=== PATIENT | female | born 1980 | race Caucasian/White ===

== ENCOUNTER 2018-08-19 16:01 | Emergency (ER) | payer MEDICAID, SELFPAY ==
[2018-08-19 16:02] VITALS: BP 109/72; PULSE 97; RESP 16; TEMP 35.9; O2SAT 98; BMI 32.1
--- NOTE | 2018-08-19 16:17 | ED.DCSUM_ITS ---
- ER Visit Summary Date of Service: 08/19/18 Chief Complaint: Dental pain right lower molar History of Present Illness: The patient is a 38 F who had root canal done approximately 2 3 months ago presents with pain right lower molar. She denies fever, chills or night sweats. She denies history rheumatic fever, murmur, SBE, IV drug use being immune suppressed. She denies any antibiotic allergies. She states she is 9 weeks . She denies inability to open or close her mouth. She denies facial swelling. She denies trouble with breathing, swallowing or speaking. Physical Examination: Vital signs noted. There is obvious dental decay with exposure of the pulp buccal side right first lower molar. There is inflammation of the gum as well. There is no fluctuance. There is shotty submandibular nodes noted. There is no superior anterior cervical nodes noted. Trach is midline. There is no evidence of Rah's angina. There is no trismus. There is no evidence of facial cellulitis. Heart is regular without murmur, gallop or rub. S1 and S2 are normal. Lungs are clear to auscultation with good movement of air bilaterally. Test Results: None Emergency Department Course and Treatment: Patient was treated with Pen-Vee K and given prescription for Pen-Vee K and L[place]field Treatment Plan: Contact dentist that she saw originally and undergo dental procedure for definitive treatment Disposition: Discharge to home Impression: 1. Odontalgia 2. Dental caries with dental abscess, pulp 3. First trimester This note was generated with [employer] dictation software. It may contain incorrect words, spelling, and punctuation that were not noted in review of the chart prior to signing ED Disposition - Plan for ED Patient: Disposition: Home or Assisted Living Chief Complaint: Dental Instructions: Dental Abscess, ED Cavity Dental Prescriptions: Hydrocodone Bitart/Apap 5-325 [[place]field 5MG-325MG] 1 tablet PO Q6H PRN PRN 3 Days #10 tablet PRN Reason: Pain Penicillin V Potassium 500 mg PO 4X/DAY #40 tablet Referrals: Dari Ma MD [Primary Care Provider] - Additional Instructions: You need to contact her dentist to have definitive dental care. Your prescriptions were electronically transmitted to [facility] your designated pharmacy
[2018-08-19] MEDS: Penicillin Vk 250 MG Tablet 500 MG PO (16:30)
--- NOTE | 2018-08-19 16:34 | ED.RN ---
Pt drove self to ED, pt states she will wait to get her NORCO prescription and get home before taking. NORCO was not dispensed to patient in ED>
== END 2018-08-19 16:35 | disposition home or self-care (01) ==
PROVIDERS: Emergency Provider Emergency Medicine; Family Provider Family Medicine; PCP Family Medicine
DX: O26.891 Other specified pregnancy related conditions, first trimester (principal); K08.89 Other specified disorders of teeth and supporting structures; K02.9 Dental caries, unspecified; K04.01 Reversible pulpitis; Z3A.09 9 weeks gestation of pregnancy; Z98.818 Other dental procedure status
CPT/HCPCS: 99283

== ENCOUNTER 2018-08-22 08:42 | Emergency (ER) | payer MEDICAID, SELFPAY ==
[2018-08-22 08:43] VITALS: BP 125/74; PULSE 101; RESP 16; TEMP 36.6; O2SAT 99; BMI 32.1
--- NOTE | 2018-08-22 09:00 | ED.DCSUM_ITS ---
- ER Visit Summary Date of Service: 08/22/18 Chief Complaint: Odontalgia History of Present Illness: The patient is a 38 F who has had tooth pain for 4 days. She was seen here 3 days ago and was given antibiotics and Vaiden. She is out of the Vaiden. She continues to have pain. She does have an appointment in 2 days with her dentist. She was concerned that she may be becoming septic so she came in. She has been taking Tylenol since she is out of the Vicodin. This all started when she had a root canal but she never followed up after the initial appointment. She is 9 weeks gestation currently. Physical Examination: Vital signs reviewed. Patient afebrile. HEENT exam reveals widespread dental decay. She has tenderness at tooth #31. There is no Rah's angina. Her uvula is midline. Neck is supple without lymphadenopathy. There is no focal abscesses. Heart is regular rate and rhythm. Lungs are clear to auscultation bilaterally. Her neurologic and is normal. Test Results: None performed Emergency Department Course and Treatment: I offered the patient a dental block with lidocaine but she declined. She states that she just came in today to make sure that she was not septic. I reassured her that her vital signs do not indicate that she is septic. She looks well. She does have an appointment in 2 days. She will continue antibiotics and Tylenol at home. Treatment Plan: [] Disposition: Discharge Impression: Odontalgia This note was generated with [employer] dictation software. It may contain incorrect words, spelling, and punctuation that were not noted in review of the chart prior to signing ED Disposition - Plan for ED Patient: Chief Complaint: Dental Referrals: Dari Ma MD [Primary Care Provider] -
--- NOTE | 2018-08-22 09:00 | ED.DEP ---
ED Disposition - Plan for ED Patient: Disposition: Home or Assisted Living Chief Complaint: Dental Instructions: ED Tooth Pain Referrals: Dari Ma MD [Primary Care Provider] -
== END 2018-08-22 09:06 | disposition home or self-care (01) ==
LOC: ED 09:05
PROVIDERS: Emergency Provider Emergency Medicine; Family Provider Family Medicine; PCP Family Medicine
DX: O26.891 Other specified pregnancy related conditions, first trimester (principal); K08.89 Other specified disorders of teeth and supporting structures; K02.9 Dental caries, unspecified; Z3A.09 9 weeks gestation of pregnancy
CPT/HCPCS: 99282

== ENCOUNTER 2019-02-26 06:47 | Outpatient (CLI) | payer MEDICAID, SELFPAY ==
[2019-02-26 07:58] VITALS: BMI 37.8
[2019-02-26] MEDS: Acetaminophen 500 MG Tablet 1000 MG PO (08:21)
--- NOTE | 2019-02-26 10:31 | OB.TRI.NOTE ---
History of Present Illness Date of Service: 02/26/19 Was patient seen by the physician?: No Reason For Visit: R/O LABOR Date of Service: 02/26/19 Final TATA: 03/24/19 Final TATA Source: US <20 weeks Gestational age: 36 Weeks and 2 Days History of Present Illness: Adia is a 39 y/o presenting at 36+ weeks reporting increased pelvic pressure and regular cramping that is painful. Patient has concerns that she may be in labor. She denies dysuria, denies VB, LOF or vaginal discharge. She reports +FM at this time. Allergies No Known Allergies Allergy (Verified 02/26/19 08:00) Review of Systems Unable to obtain accurate/complete ROS d/t: ROS completed by nursing staff Physical Exam Vitals: VSS, Afebrile - see nursing note for full PE NST - FHR Rate Baby A Baseline: 145 Variability:: Moderate Accelerations:: 15 x 15 - 2 accels noted, otherwise few accels seen Decelerations:: None NST Reactive:: Yes, Appropriate for gestational age FHR Category:: Category I Uterine Activity:: Ctx 1-6 minutes, mildly palpable. Uterine irritability noted. Impression/Plan 39 y/o @ 33+ weeks, Category I FHT, Pre-term Labor - Ruled Out P: 1) Discharge patient to home 2) Tylenol 1000mg PO q 8 hours as directed for pain can be given; patient may also apply warm heating pack 3) [facility] teaching and PTL precautions reviewed 4) RTC to [facility] as scheduled for han CHRIS
== END 2019-02-26 08:55 | disposition home or self-care (01) ==
LOC: WPOUT 07:20 → WP 07:25
PROVIDERS: Family Provider Family Medicine; PCP Family Medicine; Visit Provider Obstetrics & Gynecology
DX: O60.03 Preterm labor without delivery, third trimester (principal); Z3A.33 33 weeks gestation of pregnancy; O09.523 Supervision of elderly multigravida, third trimester
CPT/HCPCS: 59025; 59050; 99218; G0378

== ENCOUNTER 2019-03-12 06:18 | Inpatient (IN) | payer MEDICAID, SELFPAY ==
[2019-03-12] VITALS (22 sets, daily range): BP systolic 103–145; BP diastolic 52–84; PULSE 104–131; RESP 14–18; TEMP 36–36.6; O2SAT 94–99; BMI 38.2
[2019-03-12 02:36] LABS: Mucous, Urine 0 SEEN /hpf (<or=2+)
[2019-03-12 02:38] LABS: Color, Urine Yellow (Yellow); Glucose, Dipstick Normal (Normal); Ketone-Dipstick Negative (Negative); Leukocyte Esterase-Dipstick 500 /ul (Negative); Nitrite-Dipstick Negative (Negative); Occult Blood-Urine 250 /ul (Negative); Protein-Dipstick Negative (Negative); Urine Bilirubin Dipstick Negative (Negative); Urine Clarity Sl. Cloudy (Clear); Urine Urobilinogen Normal (Normal)
[2019-03-12 03:28] LABS: Bacteria RARE /hpf (None Seen); Red Blood Cells-Urine 5-10 SEEN /hpf (0-5); Squamous Epithelial Cells - UA 0-5 SEEN /hpf (5-10); White Blood Cells 5-10 SEEN /hpf (0-5)
[2019-03-12] MEDS: Lactated Ringers 1,000 ML 999 ML IV (04:05)
[2019-03-12] MEDS: Nalbuphine 10 MG/ML Ampul 5 MG IV (04:20)
[2019-03-12] MEDS: Betamethasone/Betamethasone 30 MG/5 ML Vial 12 MG IM (04:21)
[2019-03-12 06:37] LABS: Absolute Lymphocyte Count 2.58 X10^3/uL (0.83-4.51); Absolute Neutrophil Count 9.5 X10^3/uL (2.0-7.7); Basophil# 0.03 X10^3/uL; Basophil% 0.2 % (0-1); Eosinophil# 0.12 X10^3/uL; Eosinophils% 0.9 % (0-5); Hematocrit 35.5 % (37-47); Hemoglobin 11.9 g/dL (12.0-15.0); Lymphocyte # 2.58 X10^3/ul (4.0); Lymphocyte % 19.2 % (19-41); Mean Corp Hgb Conc 33.5 g/dL (32-36); Mean Corpuscular Hgb 30.8 pg (27.0-32.0); Mean Platelet Vol. 10.9 fl (6.2-12.0); Monocyte# 1.19 X10^3/uL; Monocyte% 8.8 % (0-10); NRBC Flagged by Analyzer 0 % (0-5); Neutrophil # 9.46 X10^3/uL (2.7-7.7); Neutrophil % 70.3 % (47-70); Platelet Count 223 K/mm3 (150-450); RBC Distribution Width CV 16.4 % (11.6-14.6); RBC Distribution Width SD 54.2 fl (35.1-43.9); Red Blood Count 3.86 M/mm3 (4.2-5.4); White Blood Count 13.5 K/mm3 (4.4-11.0)
[2019-03-12] MEDS: Lactated Ringers 1,000 ML 150 ML IV (07:00)
[2019-03-12] MEDS: Sodium Citrate/Citric Acid 30 ML UDC PO (07:00)
--- NOTE | 2019-03-12 07:04 | PCM.HP.OB ---
- Problem List (1) labor Status: Acute (2) History of delivery affecting Status: Acute History Date of Admission: 03/12/19 Final TATA: 04/11/19 Final TATA Source: US <20 weeks Gestational age: 35 Weeks and 5 Days History of this : This is a 39 year-old, G [id number] at 35.5 weeks gestation presents complaining of contractions since 11 PM on 03/11/2019. On admission patient was found to be 1 cm however is progressed to 4 cm 80% effaced and -2 station. She denies any vaginal bleeding, leaking of fluid. Patient did receive Celestone x1 dose patient is a previous section with her last and she declines to have a vaginal delivery. Patient wants to proceed with a repeat section. She did sign a 10 on however was not 30 days ago. Due to the fact that this is an emergent due to labor I feel it is appropriate to perform this procedure at this time.. Allergies No Known Allergies Allergy (Verified 02/26/19 08:00) Home Medications: Home Medications Duloxetine Hcl [Cymbalta] 60 mg PO DAILY 09/30/16 Pnv No.95/Ferrous Fum/Folic AC [ Caplet] 1 ea PO DAILY 03/12/19 Smoking Status: Former smoker Alcohol: None Substance Use Type: Marijuana - stopped upon knowing she was Heart Tracin mod jin, + accels, no decels TOCO Analysis: q2-4 History Past Pregnancies: Past Pregnancies Delivery Date Name GA/Weeks Outcome Route Weight Gender Labor Length Anesthesia Delivery Location Provider FOB Labs: A+, HIV neg, HEPB neg, RUB imm, syphilis neg Expected Delivery Method: Scheduled Section Review of Systems HEENT: Denies: Difficulty Hearing Cardiovascular: Denies: Chest Pain Gastrointestinal: Reports: Abdominal Pain - from contractions Physical Exam General: Alert, Oriented x3 Abdomen: Soft, Non Tender, Gravid Neurological: Cranial nerves II-XII grossly intact 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 Patient is a history of a section declines Tolac. 1) admit to L&D 2) monitor FHR/toco 3) Pt counseled on Repeat c/s- declines TOLAC 4) title 19 was signed previously in the office due to labor and the emergent nature of the section I feel that it is appropriate to go ahead and proceed with a tubal ligation.
[2019-03-12] MEDS: Cefazolin 2 GM in 0.9% Normal Saline 100 ML IV (07:25)
[2019-03-12] MEDS: Oxytocin 30 units/NS 500 ml 30 UNITS/500 ML IV.SOLN 167 UNITS IV (07:40)
--- NOTE | 2019-03-12 08:13 | PCM.OPRPT ---
Problem List (1) labor Status: Acute (2) History of delivery affecting Status: Acute Delivery Classification: SHANON Final TAAT: 04/11/19 Final TATA Source: US <20 weeks Gestational age: 35 Weeks and 5 Days Indications: labor 35.5 weeks gestation. Indications for : Repeat Elective , Desires elective sterilization, - - labor Description of Procedure: Surgeon: Dr. Radha Buckner [employer] Coordinator: Laura WILSON Procedure performed: Repeat section, bilateral tubal ligation Anesthesia: Spinal Preoperative diagnosis: labor, gestation at 35.5 weeks gestation for an elective repeat section, desires sterilization- DECLINES TOLAC Postoperative Diagnosis: same- live Male infant Findings: Live male born without complication. Delayed cord clamping performed. Normal tubes and ovaries bilaterally. Lateral tubal ligation performed without difficulty. Normal tubes and ovaries bilaterally EBL:900cc Implantable devices: None Operative note: After informed consent was obtained the patient was taken to the operating room she was given spinal anesthesia. sHe was placed in the supine position. She was then prepped and draped in normal sterile fashion. Once spinal anesthesia was found to be adequate skin incision was made with a scalpel in a Pfannenstiel fashion. It was carried down to the underlying layer of the fascia. Fascia was then incised midline with scapel and extended laterally using curved deutsch. 2 straight Tomahawk's were placed in the superior aspect of the fascial edge and the rectus muscles were dissected off sharply. Attention was then turned to the inferior aspect where again the fascial edge was grasped with 2 straight Alden clamps tented up and the rectus muscle dissected off sharplly. At this time the rectus muscles were grasped in the midline using 2 Allis clamps and scalpel was used to separate the rectus muscles. Using blunt force the peritoneum was then entered. Metzenbaums were used to take down the rectus muscles inferiorly as well as the peritoneum. At this time the vesicouterine peritoneum was identified. Metzenbaum scissors were used to create a bladder flap and then taken down digitally. Uterine incision was made in a low transverse fashion with the scalpel and then entered bluntly. Gentle opposing traction was placed to extend the uterine incision. The membranes were ruptured amniotic fluid clear. 's head was then brought to the uterine incision was delivered atraumatically followed by the rest 's body. At this time delayed cord clamping was performed mouth nose were suctioned. Infant was then handed to the waiting nursery team. The placenta was then removed with gentle traction. The uterus was removed from the intra-abdominal cavity is wrapped in a moist lap. He was cleared of all clots and debris using a moist lap. Ring clamps were placed on the uterine angles. #1 Vicryl suture was used in a running locked fashion for the first layer. Tubes and ovaries were evaluated they were normal. The tubes were grasped in an avascular area with the Major 0- plain gut suture was used to create a knuckle this was doubly secured. A portion of the tube was then resected using the Metzenbaum scissors. And the ends were coagulated using the Bovie. At this time then the uterus was placed back into abdominal cavity uterine incision was evaluated and noted to be of good hemostasis. Bilateral tubes were reevaluated. The left tube had some oozing where it seemed to shear upon placement in the abdominal cavity. At this time another 0 plain gut suture was secured around the tube and great hemostasis was appreciated. Megan was placed over the tube.. The peritoneum and mucle were adherant- they were reapproximated using #2 Vicryl suture in a running fashion. The fascia was then reapproximated using #1 PDS in a running fashion. Subcutaneous layer was evaluated and Bovie was used for any small oozing that was noted per #2-0 plain gut suture was then used to reapproximate the subcutaneous layer 4-0 Vicryl on a Marcin needle was used to reapproximate the skin in a subcutaneous fashion. Dry sterile dressing was applied. Instrument lap needle count were correct ?2. Anticipated normal postoperative course for this patient. Amniotic Membrane Rupture Type: Spontaneous Amniotic Fluid Description: Clear Placenta Disposition: [facility] Drain: Bedolla to straight drain Cord Entanglement: None Cord Vessel Description: 3 Vessels Esitmated Blood Loss (ml): 900 Infant Gender: Male (1 minute): 8 (5 minute): 9 Delayed cord clamping: Yes Pre-op Antibiotic Given: Ancef 2 grams IV x1 Pt instructed on risks of surgery: Bleeding, Anesthesia Risks, Infection, Need for Future C-Sections, Permanency, Failure Rate of 1 to 2%, Injury to surrounding structure(s) including bowel and bladder, Availability of other non-permanent control options Complications: None - Admit VTE Documentation VTE Present on Admission: Yes VTE Mechan Device Prophylaxis: SCD's VTE Pharm Prophylaxis ordered?: Yes
--- NOTE | 2019-03-12 09:13 | FALS_PTH ---
PATIENT: KENY AKINS LOC: [facility] U#:[id number] AGE/SX: 39/F ROOM: WP004 RE03/12/[address]: Dr. Radha Buckner, MDDOB: 1980 BED: 1 DIS: 03/15/2019 SPEC #: [id number] RECD: 03/12/19 00:00 STATUS: JOSE DIONNA #: [id number] KEKE: 03/12/19 09:[address]: Radha Buckner DEPT: SURGICAL PATHOLOGY RECD BY: Earle Lindsay ENTERED: 03/13/19 08:10 SP TYPE: FALL TUBES OTHR DR: Dr. Dari Ma MD Tissues: Fallopian tube Procedures: Surgery Specimen Level II HEADER OPERATION: Tubal ligation PRE-OP DIAGNOSIS: Desires sterilization TISSUE SUBMITTED: Fallopian tubes, suture in left tube MICROSCOPIC DIAGNOSIS Bilateral fallopian tubes, tubal ligation: Completely transected segments of bilateral fallopian tubes, no pathologic diagnosis. ADAN:julián 03/14/19 MICROSCOPIC DESCRIPTION Slides are reviewed. GROSS DESCRIPTION Received is one container labeled with the patient's name and designated bilateral fallopian tubes, left - suture, right - no suture. The specimen consists of two tubular pieces of pink-mast soft tissue. The left tube is identified by a suture and measures 2.5 cm in length and 0.6 cm in diameter. The right tube measures 2 cm in length and 0.6 cm in diameter. The entire specimen is submitted in two cassettes as follows: 1 - right tube, 2 - left tube. Both pieces will be sectioned at the time of embedding. / ADAN:julián 03/13/19 TC:4 CPT: 14840 x2
[2019-03-12] MEDS: Ondansetron 4 MG/2 ML Vial IV (10:44)
[2019-03-12] MEDS: DULoxetine Hcl 60 MG Capsule PO (11:37)
[2019-03-12] MEDS: Senna/Docusate Sodium 1 Tablet PO (11:37)
[2019-03-12] MEDS: proMETHazine 25 MG/ML Syringe 12.5 MG IV (13:11)
[2019-03-12] MEDS: Ketorolac 30 MG/ML Syringe IV ×2 (14:27→20:07)
--- NOTE | 2019-03-12 15:32 | CPS ---
patient is nursing baby. She states she is familiar with the device. instructed her on how and when to do.
[2019-03-12] MEDS: Lactated Ringers 1,000 ML 100 ML IV (18:12)
--- NOTE | 2019-03-12 21:44 | NURSING ---
new cath secure applied, previous one broke while pt up in bathroom doing aliyah care.
[2019-03-13] VITALS (9 sets, daily range): BP systolic 117–138; BP diastolic 70–79; PULSE 84–110; RESP 16–18; TEMP 36.1–36.9; O2SAT 95–100
[2019-03-13] MEDS: 0.9% Saline Lock 10 ML Syringe IV (02:08)
[2019-03-13] MEDS: Ketorolac 30 MG/ML Syringe IV (02:08)
[2019-03-13] MEDS: Lactated Ringers 1,000 ML 100 ML IV (03:25)
[2019-03-13] MEDS: Enoxaparin 40 MG/0.4 ML Syringe SC (06:29)
[2019-03-13 06:46] LABS: Hematocrit 30.4 % (37-47); Hemoglobin 10.2 g/dL (12.0-15.0); Mean Corp Hgb Conc 33.6 g/dL (32-36); Mean Corpuscular Hgb 30.5 pg (27.0-32.0); Mean Platelet Vol. 10.1 fl (6.2-12.0); Platelet Count 210 K/mm3 (150-450); RBC Distribution Width CV 16.9 % (11.6-14.6); RBC Distribution Width SD 55.4 fl (35.1-43.9); Red Blood Count 3.34 M/mm3 (4.2-5.4); White Blood Count 16.7 K/mm3 (4.4-11.0)
--- NOTE | 2019-03-13 07:16 | PCM.PN.OB ---
Patient Problems: Active and Suspected Problems labor (Acute) History of delivery affecting (Acute) Subjective: She is seen at bedside doing well. Patient reports good pain control. Patient is not passing flatus. Denies chest pain, shortness of breath, dizziness, nausea or vomiting. Patient reports mild lochia. Bedolla is still intact. Breast-feeding going well. - Physical Exam General: Alert, Oriented x3 Abdomen: Soft, Non-Distended, - - fundus firm. incision dressing dry and intact Extremities: No Calf Tenderness Vital Signs Temp Pulse Resp BP Pulse Ox 97.2 F L 103 H 18 117/70 96 03/13/19 03:30 03/13/19 03:30 03/13/19 03:30 03/13/19 03:30 03/13/19 03:30 Oxygen Delivery Method Room Air Weight: 102.512 kg Body Mass Index (BMI) 38.2 Intake and Output for Last 24 Hours 03/11/19 03/12/19 03/13/19 23:59 23:59 23:59 Intake Total 3089 / 3089 1193 / 1193 Output Total 2800 / 2800 1900 / 1900 Balance 289 / 289 -707 / -707 Laboratory Tests Past 24 Hrs 03/12/19 03/12/19 03/13/19 04:08 07:27 06:35 WBC 16.7 H RBC 3.34 L Hgb 10.2 L Hct 30.4 L MCV 91.0 MCH 30.5 MCHC 33.6 RDW Std Deviation 55.4 H RDW Coeff of Vignesh 16.9 H Plt Count 210 MPV 10.1 Blood Type Cancelled A POSITIVE A1 Antigen Typing Cancelled Rho(D) Type Cancelled Antibody Screen Cancelled NEGATIVE Medical Necessity - Tobacco Use Smoking Status: Former smoker Assessment/Plan All Active Problems labor (Acute) History of delivery affecting (Acute) Non-reassuring electronic monitoring tracing (Acute) Non-reassuring electronic monitoring tracing (Acute) Postop day #1, doing well Routine care Pain management Ambulation DC Bedolla catheter
[2019-03-13] MEDS: oxyCODONE 5 MG Tablet PO ×4 (07:57→22:16)
[2019-03-13] MEDS: Senna/Docusate Sodium 1 Tablet PO (07:59)
[2019-03-13] MEDS: DULoxetine Hcl 60 MG Capsule PO (11:00)
[2019-03-13] MEDS: Acetaminophen 500 MG Tablet 1000 MG PO (11:45)
[2019-03-13] MEDS: Ibuprofen 600 MG Tablet PO ×2 (13:19→19:10)
--- NOTE | 2019-03-13 13:36 | CASEMGMT ---
Social Work Referral Date: 03/13/19 Date of Assessment: 03/13/19 Reason for Consult: Mother of baby (MOB) with History of depression and THC use during Informant: Nursing staff, Chart Personal Status Present during assessment: MOB, and father of baby (FOB). Hx : 8 Hx Para: 9 Gender: Male Name: Baron Ludwig Zuluaga (1min): 8 (5min): 9 Care: Adequate Alleged father: Eric Zuluaga Alleged father involved: Yes Length of Relationship with alleged father of baby: 5 years Number of Children in the home: This is now full brother to Ayla Zuluaga and half brother to Tatiana Case. Ayla is age 2 1/2 years and share paternity with this infant. Tatiana is 13 years old and does not share paternity with this infant. Custody Comments: MOB has custody of all mentioned children. Living Arrangements: MOB, FOB, Ayla, Tatiana and now this infant live in a private home together. Education: High School Diploma Employment: MOB wors for [employer] in the [place]. 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 Family Dynamics/Relationships: MOB reporting positive family dynamics and support. Supports: MOB reporting support from FOB and family. MOB identifying no support issues. Substance Abuse Hx and Current Pattern of Use Alcohol: MOB denies abuse Methamphetamine: MOB denies use Tobacco: MOB reporting history of smoking tobacco but no current use. Cocaine: MOB denies use. Marijuana: MOB reporting to have used some prior to . MOB with a positive drug screen for THC as beginning of . MOB with no further positive drug screens during . MOB was tested when admitted to unit and was negative for THC. MOB reporting no intention of continued use of THC. Prescriptions Drugs: MOB denies abuse. Heroin: MOB denies abuse Mental Health Hx and Current Status MOB reporting a history of depression and to currently manage depression with Cymbalta. MOB denies any history of counseling services. MOB denies any suicidal thoughts. MOB reporting that Cymbalta manages MOB's depression well. MOB noting no changes or concerns with mood during and thus far. MOB denies any history of depression with prior pregnancies. Items/Skills List for Infants Care Supplies: MOB stating to have all needed supplies (crib, car seat, clothing, etc.) Bonding With Infant: MOB stating to have a connection with . Observed Maternal/Paternal Child interaction: MOB holding during assessment. MOB planning to breast feed and stating that breast feeding is going well. MOB smiling often towards . Emotional Assessment: MOB presenting with a positive affect. MOB engaged in conversation with this drug abuse social worker. MOB thanking this drug abuse social worker for support. Resources JFS: n/a WIC: n/a People to People: n/a Community Action: n/a Help Me Grow: n/a - declining referral. Children Protective Services Hx: None Transportation: MOB reporting no transportation concerns. Intervention: Support provided throughout assessment. Plan: MOB, FOB, and this to return to home with other children. Maura Dinero MSW, RONALD
[2019-03-14] MEDS: Ibuprofen 600 MG Tablet PO ×4 (02:20→21:12)
[2019-03-14 02:22] VITALS: BP 114/72; PULSE 84; RESP 18; TEMP 35.9
[2019-03-14] MEDS: oxyCODONE 5 MG Tablet PO ×4 (05:30→20:11)
[2019-03-14] MEDS: Enoxaparin 40 MG/0.4 ML Syringe SC (05:30)
[2019-03-14] MEDS: Senna/Docusate Sodium 1 Tablet PO (05:30)
--- NOTE | 2019-03-14 06:56 | PCM.PN.OB ---
Patient Problems: Active and Suspected Problems labor (Acute) History of delivery affecting (Acute) Subjective: pain well controlled, average lochia. +flatus - Physical Exam General: Alert, Cooperative, No apparent distress Abdomen: Soft, Distended - mildly, softly, Tender - appropriately Extremities: Edema Skin: Incision - bandage clean, dry and intact Vital Signs Temp Pulse Resp BP Pulse Ox 96.6 F L 84 18 114/72 95 03/14/19 02:22 03/14/19 02:22 03/14/19 02:22 03/14/19 02:22 03/13/19 17:30 Oxygen Delivery Method Room Air Weight: 102.512 kg Body Mass Index (BMI) 38.2 Intake and Output for Last 24 Hours 03/12/19 03/13/19 03/14/19 23:59 23:59 23:59 Intake Total 3089 / 3089 2193 / 2193 Output Total 2800 / 2800 3660 / 3660 Balance 289 / 289 -1467 / -1467 Medical Necessity - Tobacco Use Smoking Status: Former smoker Assessment/Plan All Active Problems labor (Acute) History of delivery affecting (Acute) Non-reassuring electronic monitoring tracing (Acute) Non-reassuring electronic monitoring tracing (Acute) POD#2 doing well doing well, likely d/c home tomorrow
[2019-03-14 10:00] VITALS: BP 117/70; PULSE 76; RESP 16; TEMP 36.2
[2019-03-14] MEDS: DULoxetine Hcl 60 MG Capsule PO (10:25)
[2019-03-14 12:33] LABS: Pathology Specimen OB SEE PATHOLOGY REPORT
[2019-03-14 14:00] VITALS: BP 133/85; PULSE 97; RESP 16; TEMP 36.2
[2019-03-14 20:46] VITALS: BP 147/75; PULSE 85; RESP 18; TEMP 36.2; O2SAT 94
[2019-03-15] MEDS: oxyCODONE 5 MG Tablet PO ×2 (00:26→04:44)
[2019-03-15 01:08] VITALS: BP 127/79; PULSE 78; RESP 18; TEMP 37; O2SAT 96
[2019-03-15] MEDS: Ibuprofen 600 MG Tablet PO (04:07)
[2019-03-15] MEDS: Enoxaparin 40 MG/0.4 ML Syringe SC (06:10)
--- NOTE | 2019-03-15 07:10 | DCINST_ITS ---
Discharge Diet: No Restrictions Discharge Activity: Return to Normal Activity, May Not Drive - for 2 weeks, May not drive while taking narcotic pain medications., May Shower, May Take a Tub Bath - in 7 days. May resume sexual activity in: 4-6 weeks Lifting Restrictions: 20 pounds Additional Activity Instructions:: Nothing in the vagina for 4-6 weeks. You may return to work/school in 6 weeks. Call your doctor if your incision/area has: Continuous Slow Oozing, Sudden Increased Bleeding, Increased Pain/ Swelling, Increased Redness, Foul Smelling Discharge Call your doctor if you observe: Fever of 101 or Higher, Using more than one pad per hour - for 2 hours Suture Line Care: Avoid Pulling/Pushing, Avoid Pinching/Bending Cleanse incision/area with: Keep Dressing Clean & Dry Additional Instructions: If you experience any of the following, contact your healthcare provider. * Bleeding that soaks a pad every hour for 2 hours * Fever 100.4 or higher * Unrelieved incision or abdominal pain * Swelling, redness, discharge or bleeding from your incision or episiotomy site * Your incision begins to separate * Problems urinating (including inability to urinate or burning while urinating). * Visual changes * Severe headache * Flu-like symptoms * Pain or redness in one of both of your breasts * Pain, warmth, tenderness or swelling in your legs, especially the calf area * Frequent nausea and vomiting * Symptoms of depression or anxiety If you experience any of the following, call 911 or go to the nearest Emergency Room. * Chest pain * Problems breathing * Seizure activity * Partial or complete paralysis of a body part, slurred speech, weakness or drooping of the face, or a sudden inability to walk or hold your balance Allergies/Adverse Reactions: Allergies No Known Allergies Allergy (Verified 02/26/19 08:00) Medications to take at Discharge Duloxetine Hcl [Cymbalta] 60 mg PO DAILY 09/30/16 Pnv No.95/Ferrous Fum/Folic AC [ Caplet] 1 ea PO DAILY 03/12/19 Acetaminophen [Pain Reliever] 1,000 mg PO Q8 #40 tab 03/15/19 Ibuprofen [Motrin] 800 mg PO TID PRN PRN #60 tab 03/15/19 Oxycodone [Oxyir] 5 - 10 mg PO Q8 PRN 7 Days #28 tablet 03/15/19 The following prescriptions were given: Ibuprofen [Motrin] 800 mg PO TID PRN PRN #60 tab PRN Reason: Pain Transmission Status: Pending to [facility]30 Oxycodone [Oxyir] 5 - 10 mg PO Q8 PRN 7 Days #28 tablet PRN Reason: Severe Pain (6-06/01) Transmission Status: Sent to [facility] #[facility] Acetaminophen [Pain Reliever] 1,000 mg PO Q8 #40 tab Transmission Status: Pending to [facility] Follow-Up: Call to make an appointment with your doctor for an incision check in 1-2 weeks. You will also need a 6 week post- follow up appointment. Test results from this visit will be discussed in further detail at your follow- up appointment, if applicable. Please Follow Up With: Liliya Alexander MD - Call to make an appointment for an incision check in 1-2 [phone] When: You will need a post check in 6 weeks. Primary Care Physician: Dari Ma MD [Primary Care Provider] -
--- NOTE | 2019-03-15 07:58 | PCM.PN.OB ---
Patient Problems: Active and Suspected Problems labor (Acute) History of delivery affecting (Acute) Subjective: Patient seen at bedside. Patient is doing well. Patient denies any chest pain, shortness of breath, dizziness. Lochia is mild. Breast-feeding going well. Patient is passing flatus and voiding without difficulty. - Physical Exam General: Alert, Oriented x3 Abdomen: Soft, Non-Distended, - - fundus firm, dressing dry and intact Extremities: No Calf Tenderness Vital Signs Temp Pulse Resp BP Pulse Ox 98.6 F 78 18 127/79 H 96 03/15/19 01:08 03/15/19 01:08 03/15/19 01:08 03/15/19 01:08 03/15/19 01:08 Oxygen Delivery Method Room Air Weight: 102.512 kg Body Mass Index (BMI) 38.2 Intake and Output for Last 24 Hours 03/13/19 03/14/19 03/15/19 23:59 23:59 23:59 Intake Total 2193 / 2193 Output Total 3660 / 3660 Balance -1467 / -1467 Medical Necessity - Tobacco Use Smoking Status: Former smoker Assessment/Plan All Active Problems labor (Acute) History of delivery affecting (Acute) Non-reassuring electronic monitoring tracing (Acute) Non-reassuring electronic monitoring tracing (Acute) Postoperative day #3, doing well Routine care Pain management Ambulation DC home today
--- NOTE | 2019-03-15 08:00 | DS.PCM_ITS ---
Discharge Summary Date of Admission: 03/12/19 Date of Discharge: 03/15/19 Summary: Was admitted to [facility] on 03/12/2019 for rule out labor. Patient was found to be making cervical change from 1 cm to 4 cm. She received Celestone x1 dose. Desired a repeat elective section and a bilateral tubal ligation. Her total 19 form was signed previously due to the emergent nature of the case and the delivery although the 30 days was not met the tubal ligation was performed. Patient had an uneventful repeat low transverse section with a bilateral tubal ligation. Was discharged home on postoperative day 3 in stable condition Patient Problems: Active and Suspected Problems labor (Acute) History of delivery affecting (Acute) - Physical Exam Vital Signs Temp Pulse Resp BP Pulse Ox 98.6 F 78 18 127/79 H 96 03/15/19 01:08 03/15/19 01:08 03/15/19 01:08 03/15/19 01:08 03/15/19 01:08 Oxygen Delivery Method Room Air Weight: 102.512 kg Body Mass Index (BMI) 38.2 Intake and Output for Last 24 Hours 03/13/19 03/14/19 03/15/19 23:59 23:59 23:59 Intake Total 2193 / 2193 Output Total 3660 / 3660 Balance -1467 / -1467
[2019-03-15 08:10] VITALS: BP 123/73; PULSE 76; RESP 14; TEMP 36.1; O2SAT 97
--- NOTE | 2019-03-15 09:38 | NURSING ---
0910 patient and infant to private car via W/C and carseat in stable condition
[2019-03-17 08:57] LABS: Pathology Specimen OB SEE PATHOLOGY REPORT
== END 2019-03-15 09:25 | disposition home or self-care (01) | DRG 540 ==
LOC: WPOUT 06:26 → WP 06:26
PROVIDERS: Admitting Provider Obstetrics & Gynecology; Family Provider Family Medicine; PCP Family Medicine; Visit Provider Obstetrics & Gynecology
DX: O60.14X0 Preterm labor third trimester with preterm delivery third trimester, not applicable or unspecified (principal); O34.211 Maternal care for low transverse scar from previous cesarean delivery; Z87.891 Personal history of nicotine dependence; Z30.2 Encounter for sterilization; Z37.0 Single live birth; Z3A.35 35 weeks gestation of pregnancy; O65.5 Obstructed labor due to abnormality of maternal pelvic organs; O99.214 Obesity complicating childbirth; E66.01 Morbid (severe) obesity due to excess calories
CPT/HCPCS: 59025; 81001; 85025; 85027; 86850; 86900; 88302; 99218; J7120; A4216; G0378; J0702; J2405

== ENCOUNTER 2020-01-03 03:37 | Emergency (ER) | payer OTHER, SELFPAY ==
[2019-03-12 01:04] VITALS: BMI 38.2
[2020-01-03 03:37] VITALS: BP 123/83; PULSE 118; RESP 18; TEMP 36.6; O2SAT 100; BMI 31.1
[2020-01-03 03:40] VITALS: BP 123/83; PULSE 118; RESP 18; TEMP 36.6; O2SAT 100
--- NOTE | 2020-01-03 03:58 | ED.DCSUM_ITS ---
- ER Visit Summary Date of Service: 01/03/20 Chief Complaint: Dental pain History of Present Illness: The patient is a [address] Ma. She reports that she has pain in her right mandibular second premolar that began yesterday. States she has had problems with this tooth for quite some time. Ho wever, she was doing well until yesterday. She reports she has a sharp pain is 10 on 10 worsening a 10 currently. Is worsened by eating. She taken NSAIDs without relief. It is sensitive to hot and cold temperatures. Patient reports that her dentist Dr. Rod called in a prescription for clindamycin and she has had 2 doses. She is in the process of trying to get into see Dr. Locke. Physical Examination: Vitals: Stable. Afebrile. Mouth: No trismus. No edema of the floor of the mouth. Pain with percussion of right mandibular second premolar. There is erythema of the gum on the lateral side with mild swelling. There is no focal abscess. General: A&O x 3. NAD. Cardiovascular exam: Regular rate and rhythm, no murmur, rub or gallop. Respiratory exam: Clear to auscultation bilaterally. No wheezes or stridor. Abdominal exam: Soft, nontender, nondistended, normal bowel sounds. No peritoneal signs. Extremity: No clubbing, cyanosis, or edema. Emergency Department Course and Treatment: Patient had been taking 150 mg of clindamycin. She was given a 300 mg dose here. She was given Tylenol. Treatment Plan: Patient be discharged prescription for 12 Percocet. She is instructed to increase her clindamycin to 300 mg 4 times daily and follow-up Dr. Locke soon as possible. Return to the emergency department for any worsening symptoms. Disposition: To home in improved and stable condition. Impression: 1. Dental pain. This note was generated with [employer] dictation software. It may contain incorrect words, spelling, and punctuation that were not noted in review of the chart prior to signing ED Disposition - Plan for ED Patient: Instructions: ED Tooth Pain Prescriptions: Clindamycin HCl [Cleocin] 300 mg PO Q6H #40 cap Prescription Printed Oxycodone HCl/Acetaminophen [Percocet 5/325] 1 tab PO Q6H PRN PRN 3 Days #12 tab PRN Reason: Pain Prescription Printed Referrals: Nacho Locke DDS [STAFF PHYSICIAN] - As soon as possible
[2020-01-03] MEDS: Acetaminophen 500 MG Tablet PO (04:08)
[2020-01-03] MEDS: Clindamycin HCl 150 MG Capsule 300 MG PO (04:09)
== END 2020-01-03 04:26 | disposition home or self-care (01) ==
LOC: ED 04:14
PROVIDERS: Emergency Provider Emergency Medicine; PCP Family Medicine
DX: K08.89 Other specified disorders of teeth and supporting structures (principal)
CPT/HCPCS: 99283

== ENCOUNTER 2020-01-15 01:35 | Emergency (ER) | payer OTHER, SELFPAY ==
[2020-01-15 01:36] VITALS: BP 121/82; PULSE 128; RESP 16; TEMP 36.5; O2SAT 100; BMI 32.3
--- NOTE | 2020-01-15 02:01 | ED.DEP ---
ED Disposition - Plan for ED Patient: Disposition: Home or Assisted Living Instructions: ED Otitis Externa Prescriptions: Amoxicillin 500 mg PO Q8 #30 tab Prescription Printed Hydrocodone Bitart/Apap 5-325 [[place] 5MG-325MG] 1 tab PO Q4H PRN PRN 2 Days #10 tab PRN Reason: Pain Prescription Printed Referrals: Valerio Cottrell MD [STAFF PHYSICIAN] - 3-5 Days if not improving Additional Instructions: Tylenol and/or Motrin for pain. If severe pain you may use the [place] which is Vicodin which is a narcotic pain medication. Amoxicillin oral antibiotic 1 pill 3 times a day for 10 days. Corticosporin drops for the eardrops 3 drops 3 times a day to your left ear. This will treat the left ear canal infection.
[2020-01-15] MEDS: AMOXICILLIN 500 MG CAPSULE PO (02:04)
[2020-01-15] MEDS: HYDROcodone Bitartrate/Apap 5/325 Tablet PO (02:15)
[2020-01-15] MEDS: Neomycin Sulfate/Polymyxin/Hc Susp 10 ML Bottle 4 DRP OTIC (02:16)
[2020-01-15 02:23] VITALS: BP 122/78; PULSE 87; RESP 16; O2SAT 98
--- NOTE | 2020-02-03 07:22 | ED.VISSUMM ---
- ER Visit Summary Date of Service: 02/03/20 Chief Complaint: Left earache History of Present Illness: The patient is a 40 F past medical history of anemia and anxiety. Patient states for 2 days she has had a left earache with increasing pain today. She denies any fever. No sore throat. Physical Examination: Vital signs are stable and afebrile. H EENT exam shows moist mucous membranes. Posterior pharynx unremarkable markable. Right ear and canal and TM unremarkable left there appears to be an otitis externa. There is some fluid in the canal and I am unable to visualize the tympanic membrane on the left. There is no blood. She also some mild tenderness over the left eustachian tube. Neck no lymphadenopathy trachea midline. Lungs clear to auscultation bilaterally. Heart regular rhythm no murmur. Abdomen is soft and nontender. Patient is moving all 4 extremities. Neurologically she is awake and alert. Test Results: None Emergency Department Course and Treatment: History and exam are consistent with a left otitis externa. Patient be given a dose of amoxicillin in the emergency department [place] for pain and also started on eardrops for otitis externa. Treatment Plan: Amoxicillin 3 times daily. Eardrops until resolved. Motrin Tylenol for pain. Follow-up if not improving. Return if worse. Disposition: Discharge Impression: Acute left otitis externa This dictation was done on 02/03/2020. The patient was actually seen on 01/15/2020. The dictation was inadvertently missed or lost and was redone. This note was generated with [employer] dictation software. It may contain incorrect words, spelling, and punctuation that were not noted in review of the chart prior to signing ED Disposition - Plan for ED Patient: Disposition: Home or Assisted Living Instructions: ED Otitis Externa Referrals: Valerio Cottrell MD [STAFF PHYSICIAN] - 3-5 Days if not improving Additional Instructions: Tylenol and/or Motrin for pain. If severe pain you may use the [place] which is Vicodin which is a narcotic pain medication. Amoxicillin oral antibiotic 1 pill 3 times a day for 10 days. Corticosporin drops for the eardrops 3 drops 3 times a day to your left ear. This will treat the left ear canal infection.
== END 2020-01-15 02:24 | disposition home or self-care (01) ==
LOC: ED 02:14
PROVIDERS: Emergency Provider Emergency Medicine; PCP Family Medicine
DX: H60.502 Unspecified acute noninfective otitis externa, left ear (principal); F41.9 Anxiety disorder, unspecified; F32.9 Major depressive disorder, single episode, unspecified
CPT/HCPCS: 99283

== ENCOUNTER 2020-01-21 12:55 | Emergency (ER) | payer OTHER, SELFPAY ==
[2020-01-21 12:56] VITALS: BP 127/91; PULSE 101; TEMP 37.2; BMI 31.8
--- NOTE | 2020-01-21 13:33 | ED.VIS.GEN ---
History of Present Illness Chief Complaint: Ear Problem Narrative: Patient presenting for evaluation secondary to ear pain. Patient reports of a course of the last week or so she has been dealing with left ear pain. She reports that her primary care initially thought that she had a bad case of swimmer's ear and put her on a course of oral Levaquin. Patient reports that she initially saw improvements, and then she started to have worsening and pain again with drainage from the ear. She denies any fevers. She does report decreased hearing. Patient denies any history of immunosuppression or diabetes. Review of systems otherwise negative. Past Medical History - Allergies and Home Meds Allergies/Adverse Reactions: Allergies No Known Allergies Allergy (Verified 02/26/19 08:00) Primary Care Physician: Dari Ma MD [Primary Care Provider] - Prior records reviewed: Yes Past Medical History: None Smoking Status: Never smoker Review of Systems General: Denies: Chills, Fever, Sweats Eyes: Denies: Visual changes - bilaterally, Diplopia ENT: Reports: Left ear pain Cardiovascular: Denies: Chest pain, Palpitations Respiratory: Denies: Dyspnea, Cough, Dyspnea on exertion Gastrointestinal: Denies: Abdominal pain, Nausea, Vomiting, Diarrhea, Melena, Hematochezia Genitourinary: Denies: Dysuria, Hematuria, Frequency Musculoskeletal: Denies: Back pain, Extremity Pain Skin: Denies: Rash, Wounds Neurological: Denies: Headache, Weakness, Numbness Physical Exam Vital Signs/Narrative: Vital Signs Temp Pulse BP 01/21/20 12:56 99.0 F 101 H 127/91 H Inital Vital Signs reviewed: Yes General: Well nourished, Well developed, No Acute Distress Head: Normocephalic, Atraumatic Eyes: Perrl, EOMI ENT: Moist mucous membranes, No rhinorrhea, - - No evidence of mastoid tenderness to palpation. There is pain with movement of the tragus. The ear canal appears somewhat excoriated and erythematous. There is evidence of tympanic membrane rupture with drainage of fluid. Neck: Supple, Nontender Cardiovascular: Regular rate, Regular rhythm, No murmurs Respiratory: No distress, CTA bilaterally, Chest nontender Abdomen: Soft, Nontender, Nondistended, Normal bowel sounds Back: Nontender, Normal Inspection Extremities: Nontender, No edema Skin: Normal color, No rash Neurological: Alert, Oriented x3, Cranial nerves II-XII grossly intact, Normal Strength, Normal Sensation Psychological: Normal affect, Normal Mood Diagnostic/Tx/Re-eval - Medical Decision Making Patient presented secondary to ear pain. Physical exam shows likely ruptured otitis media with a mild amount of probably reactionary otitis externa. Patient will be placed on ofloxacin suspension. Patient will be given ENT to follow-up ED Disposition - Plan for ED Patient: Disposition: Home or Assisted Living Diagnosis: Otitis media Instructions: ED Rupture Eardrum Infec Referrals: Gene Mota MD [STAFF PHYSICIAN] - 1 Week
[2020-01-21] MEDS: Neomycin/Polymyxin/Dexameth 5ML OPTH.BTL 4 DRP OTIC (13:50)
[2020-01-21 13:56] VITALS: RESP 15
== END 2020-01-21 13:57 | disposition home or self-care (01) ==
PROVIDERS: Emergency Provider Emergency Medicine; PCP Family Medicine
DX: H66.92 Otitis media, unspecified, left ear (principal); H72.92 Unspecified perforation of tympanic membrane, left ear
CPT/HCPCS: 99282

== ENCOUNTER → 2020-01-30 16:58 | Outpatient (CLI) | payer OTHER, SELFPAY ==
[2020-01-21 12:56] VITALS: BMI 31.8
--- NOTE | 2020-01-30 17:04 | CT_ITS ---
STUDY: CT ABDOMEN AND PELVIS WITH CONTRAST REASON FOR EXAM: Female, 39 years old. PT STATED LLQ PAIN X 4 DAYS, TOOK NARCOTICS FOR TOOTH PROBLEM FOR 3 WEEKS, NO NORMAL BM SINCE, HX OF 2 C-SECTIONS RADIATION DOSAGE (If Supplied By Facility): CTDIvol = ( 16.71 ) mGy, DLP = ( 1240.46 ) mGycm TECHNIQUE: Transaxial images were obtained from the dome of the diaphragm to the symphysis pubis with oral contrast. Oral and amp; IV Readi-CAT and amp; 100mL Isovue-300 was administered. Sagittal and coronal images were reconstructed. Individualized dose optimization techniques were used for this CT. COMPARISON: None. FINDINGS: The visualized lung bases are unremarkable. The visualized portions of the heart are within normal limits. Normal liver. Normal gallbladder and extrahepatic biliary system. Normal spleen. Normal pancreas. Normal bilateral adrenal glands. Normal right kidney. Normal left kidney. There is a small hiatal hernia. Normal small intestine. Large amount of fecal material is seen throughout the colon. The appendix is visualized and appears normal. Normal abdominal aorta. Normal inferior vena cava. There is borderline retroperitoneal lymphadenopathy with enlarged nodes no greater than 10mm in the short axis diameter. Normal urinary bladder. There is a 5.7 cm x 4.3 cm septated cyst in the left ovary. A small follicle is seen in the right ovary. Normal abdominal wall. Normal osseous structures. CT/Abdomen/Pelvis WITH Contrast IMPRESSION: 5.7 cm x 4.3 cm septated cyst in the left ovary. Large amount of fecal material is seen in the colon. Electronically Signed: Rory Hoffman, at 9:38 EDT , Service support ,
== END ==
PROVIDERS: PCP Family Medicine; Visit Provider Family Medicine
DX: R10.32 Left lower quadrant pain (principal)
CPT/HCPCS: 74177; Q9967

== ENCOUNTER 2020-02-04 21:18 | Emergency (ER) | payer OTHER, SELFPAY ==
[2020-02-04 21:18] VITALS: BP 127/93; PULSE 112; RESP 18; TEMP 36.7; O2SAT 95; BMI 31.9
--- NOTE | 2020-02-04 21:47 | ED.DCSUM_ITS ---
- ER Visit Summary Date of Service: 02/04/20 Chief Complaint: Left ear pain History of Present Illness: The patient is a [address] Ma. She reports that she has had left ear pain for approximately 3 weeks. She describes it as a sharp pressure. Is 10 on 10 at worst and a 10 currently. Is worsened by touching it. States that it was improved transiently by Levaquin. Patient has been seen in the emergency department and by Dr. Ma multiple times for this. Initially she was placed on amoxicillin and did not get relief. She was then placed on Levaquin for 5 days and was doing peroxide washes to her ear. States that it seemed to improve with the Levaquin. However, she finished this 2 weeks ago and the pain is returned. Patient was seen again and there was thought that she had a ruptured eardrum. She was placed on Ciprodex which she stopped using approximately 1 week ago. Joshua tracy is now just doing peroxide rinses to radiate her ear and reports that her pain is not improving. Patient has an appointment to see Dr. Mota for this tomorrow. However, she reports she cannot tolerate the pain tonight. Patient states that 1 week ago she had lower abdominal pain that she had a CAT scan for that showed that she had an ovarian cyst. She reports that her pain has improved greatly from that time. She reports it is now 5 out of 10 in severity. She has not contacted her cocoa bean roaster, Dr. Warner. Physical Examination: Vitals: Stable. Afebrile. General: Well-nourished and well-developed. Head: Normocephalic atraumatic. HEENT: She has no pain with movement of her pinna. She does have mild pain with movement of her left tragus. There is a small amount of exudate on the posterior portion of her ear canal. Due to her pain and having a difficult time visualizing her entire TM. I do not appreciate any evidence of an otitis media. Neck: Supple, no lymphadenopathy. No JVD. Nontender. Cardiovascular: Regular rate and rhythm. No murmurs. Respiratory: No respiratory distress. Clear to auscultation bilaterally. Abdominal: Soft, nontender, nondistended, normal bowel sounds. No guarding, rebound, or peritoneal signs. Back: Nontender. Extremities: Nontender, no edema. Skin: Normal color, no rash. Neurologic: Alert and oriented ?3. Cranial nerves II through XII are intact. Normal strength and sensation. Psych: Normal affect. Emergency Department Course and Treatment: Patient was given a dose of ibuprofen and 2 [place]. At this time I do not think that further evaluation is necessary in the emergency department of her ear pain. She readily admits that her abdominal pain is much improved. I do not think that she has any evidence of an ovarian torsion at this time either. Treatment Plan: Patient be discharged instructions to follow-up with Dr. Mota tomorrow as previously directed. She is also instructed to follow-up with Dr. Warner for further evaluation of her ovarian cyst. Return to the emergency department for any worsening symptoms. Disposition: To home in improved and stable condition. Impression: 1. Left ear pain. 2. Left ovarian cyst. This note was generated with [employer] dictation software. It may contain incorrect words, spelling, and punctuation that were not noted in review of the chart prior to signing ED Disposition - Plan for ED Patient: Disposition: Home or Assisted Living Instructions: ED Otitis Externa Referrals: Gene Mota MD [STAFF PHYSICIAN] - Keep Juve appointment Radha Buckner MD [STAFF PHYSICIAN] - As soon as possible
[2020-02-04] MEDS: HYDROcodone Bitartrate/Apap 5/325 Tablet PO (21:55)
[2020-02-04] MEDS: Ibuprofen 400 MG Tablet 800 MG PO (21:55)
== END 2020-02-04 21:57 | disposition home or self-care (01) ==
LOC: ED 21:48
PROVIDERS: Emergency Provider Emergency Medicine; PCP Family Medicine
DX: H92.02 Otalgia, left ear (principal); N83.202 Unspecified ovarian cyst, left side
CPT/HCPCS: 99283

== ENCOUNTER 2020-07-26 15:16 | Emergency (ER) | payer MEDICAID, SELFPAY ==
[2020-07-26 15:18] VITALS: BP 147/103; PULSE 10; RESP 3; TEMP 36.1; O2SAT 99; BMI 35.6
[2020-07-26 15:48] VITALS: PULSE 94; RESP 16; O2SAT 97
--- NOTE | 2020-07-26 15:48 | ED.VISSUMM ---
- ER Visit Summary Date of Service: 07/26/20 Chief Complaint: Pelvic pain History of Present Illness: The patient is a [address] Caldera and Dr. Ma. She reports that she was awakened at 4:00 this morning by pelvic pain. She describes as a sharp pain is 1010 worsening to 10 currently. Is worsened by movement. She is taken Tylenol and Motrin without relief. Denies any nausea, vomiting, or diarrhea. Her last bowel was today. No dysuria or frequency. She just finished her menstrual period. Patient reports this is similar to when she had ovarian cyst in the past. Physical Examination: Vitals: Stable. Afebrile. General: Well-nourished and well-developed. Head: Normocephalic atraumatic. Neck: Supple, no lymphadenopathy. No JVD. Nontender. Cardiovascular: Regular rate and rhythm. No murmurs. Respiratory: No respiratory distress. Clear to auscultation bilaterally. Abdominal: Soft, mild suprapubic tenderness to palpation, nondistended, normal bowel sounds. No guarding, rebound, or peritoneal signs. Back: Nontender. Extremities: Nontender, no edema. Skin: Normal color, no rash. Neurologic: Alert and oriented ?3. Cranial nerves II through XII are intact. Normal strength and sensation. Psych: Normal affect. Test Results: Patient refused a test and ultrasound. Emergency Department Course and Treatment: An [facility] report was obtained which shows she had 7 prescriptions for opiates in the past year. She reports that she is a personal friend of Dr. Caldera's and would like to wait to have a work-up when she can get into see her. Discussed the patient the risk of an ovarian torsion or ectopic . She does understand this and wants to leave anyway. She reports it is my daughter's birthday. Treatment Plan: Patient will be discharged with [address] [place] [address]. Instructed to follow-up Dr. Caldera as soon as possible. Return to the emergency department for any worsening symptoms. Disposition: To home in improved and stable condition. Impression: 1. Pelvic pain. 2. Left AMA. This note was generated with [employer] software. It may contain incorrect words, spelling, and punctuation that were not noted in review of the chart prior to signing ED Disposition - Plan for ED Patient: Disposition: Home or Assisted Living Instructions: ED Abdominal Pain Unkn Cause Fem Prescriptions: Hydrocodone Bitart/Apap 5-325 [[place] 5MG-325MG] 1 tab PO Q4H PRN PRN 2 Days #10 tab PRN Reason: Pain Prescription Printed Referrals: Radha Buckner MD [STAFF PHYSICIAN] - As soon as possible
== END 2020-07-26 16:09 | disposition left against medical advice (07) ==
LOC: ED 16:00
PROVIDERS: Emergency Provider Emergency Medicine; PCP Family Medicine
DX: R10.2 Pelvic and perineal pain (principal); Z53.21 Procedure and treatment not carried out due to patient leaving prior to being seen by health care provider
CPT/HCPCS: 99282

== ENCOUNTER 2021-06-05 12:11 | Emergency (ER) | payer OTHER, MEDICAID, SELFPAY ==
[2021-06-05 12:12] VITALS: BP 130/99; PULSE 118; RESP 16; TEMP 36.4; O2SAT 100
[2021-06-05 12:34] VITALS: BP 126/94; PULSE 115; RESP 18; O2SAT 98
[2021-06-05 12:37] VITALS: O2SAT 98
--- NOTE | 2021-06-05 12:57 | RAD_ITS ---
STUDY: X-RAY CHEST REASON FOR EXAM: Female, 41 years old. 4 day history of shortness of breath, cough and chest congestion. TECHNIQUE: Single AP portable view of the chest. COMPARISON: None. FINDINGS: EKG electrodes are seen. The lungs are clear and expanded. There is no demonstrated pleural abnormality. Normal size heart. Normal mediastinum and lamine. Normal visualized pulmonary arteries. Normal visualized aortic arch and descending thoracic aorta. Normal visualized thoracic spine. Normal visualized ribs, clavicles, and shoulders. There is no demonstrated abnormality of the visualized soft tissue structures of the upper abdomen. RAD/Chest 1 View (Portable) IMPRESSION: Normal x-ray examination of the chest. Electronically Signed: Rory Hoffman MD at 13:13 EDT , Service support ,
--- NOTE | 2021-06-05 12:58 | EX.ED.VIS.UR ---
HPI HPI - URI History of Present Illness Chief Complaint: Shortness of Breath Informant: patient Onset/Context/Timing Onset: Days Context: Gradual Onset Timing: Continuous Current Severity: Mild Maximum Severity: Mild Associated Symptoms Associated Symptoms: Positive for Nasal Congestion, Myalgias, Nausea, Diarrhea, Shortness of Breath and Nonproductive cough; Negative for Vomiting and Hemoptysis Narrative Narrative: 41-year-old female history depression anxiety. Also reflux. States 8 days ago she developed a fever. Was seen in urgent care. Had a negative Covid test. Daughter tested positive recently for RSV so the patient was started on steroids 50 mg a day of prednisone and albuterol inhaler. She does not feel that she is getting better and thinks she may be getting worse. She also states she previously had a tubal ligation. She has an IUD which came out 2 nights ago. She is concerned she may have bacterial vaginosis now. She states she has a discharge with a foul odor. States she is nauseated without vomiting. She is also had diarrhea. Denies any dysuria. Prior similar symptoms: Yes Recent Illness/Hospitalization: No ROS ROS ED ROS Narrative Cough shortness of breath. Review of Systems ROS Unobtainable: Denies due to encephalopathy Constitutional Constitutional ED: Reports fever(s) Eyes Eyes: Denies change in vision ENT ENT ED: Denies ear pain or sore throat Cardiovascular Cardiovascular: Denies chest pain Respiratory/Chest Respiratory/Chest: Reports cough and dyspnea Gastrointestinal Gastrointestinal: Reports diarrhea and nausea; Denies abdominal pain or vomiting Genitourinary Genitourinary ED: Denies dysuria Musculoskeletal Musculoskeletal: Denies myalgias Integumentary Denies rash Neurologic Neurologic: Denies headache(s) Psychiatric Psychiatric: Denies depression Endocrine Endocrinology: Denies polyuria Hematologic/Lymphatic Hematologic/Lymphatic: Denies easy bruising Allergic/Immunologic Allergic/Immunologic ED: Denies urticaria PFSH PFSH Medical History Anxiety Home Medications duloxetine 60 mg PO DAILY 09/30/16 [History Last Taken 01/21/20] ibuprofen 600 mg PO Q8H PRN PRN 02/04/20 [History Last Taken Unknown] bupropion HCl 100 mg PO BID 07/26/20 [History Last Taken Unknown] esomeprazole magnesium 20 mg PO DAILY 07/26/20 [History Last Taken Unknown] trazodone 100 mg PO QHS 07/26/20 [History Last Taken Unknown] alprazolam 0.5 mg PO DAILY PRN 06/05/21 [History Last Taken Unknown] dextroamphetamine-amphetamine 30 mg PO DAILY 06/05/21 [History Last Taken Unknown] Allergy/AdvReac Type Severity Reaction Status Date / Time No Known Allergies Allergy Verified 06/05/21 12:15 Social History Smoking Status: Never smoker EXAM Physical Exam Narrative Exam Narrative: Middle-aged female no acute distress vital signs stable afebrile. Pulse ox 9% on room air no signs hypoxia. HEENT exam normal. TMs normal. Posterior pharynx normal. Neck nontender no lymphadenopathy. Lungs clear to auscultation bilaterally. Heart regular rhythm no murmur. Abdomen soft nontender normal bowel sounds no peritoneal signs. Moving all 4 extremities. Calves nontender no edema. Neurologically awake and alert no focal motor deficits. Normal exam. Benign. Pelvic exam was done with female nurse present in the room. External exam unremarkable. Speculum exam very small amount of blood from the cervical os. No discharge. No foul odor. No lesions. Bimanual exam was unremarkable. There is no masses. No significant tenderness. No signs of any infection at this time. Const Vital Signs: 06/05/21 12:12 06/05/21 12:34 06/05/21 12:37 Temperature 97.6 F L Temperature Source Temporal Pulse Rate 118 H 115 H Respiratory Rate 16 18 Respiratory Effort Normal Non-Labored Respiratory Depth Normal Respiratory Pattern Normal Blood Pressure 130/99 H 126/94 H Blood Pressure Mean 109 104 Pulse Ox 100 98 Oxygen Delivery Method Room Air Room Air Room Air Positive well nourished and well developed; Negative for obese, cachectic or contractures General Appearance ED: well developed and NAD; Negative for cachectic, contractures, cyanotic, diaphoretic or pallor Nutritional Appearance: Negative for cachectic or obese HEENT Reports TM's clear and moist mucous membranes normocephalic and atraumatic; Negative for scalp tenderness Face and Sinus: Negative for sinus tenderness External Ear: external ears normal and no preauricular adenopathy External Auditory Canal: EAC's normal Tympanic Membrane ED: Yes TM's clear and TM's normal bilaterally Eyes PERRL and EOMs intact bilaterally Neck no lymphadenopathy, supple, no meningeal signs and no JVD General: Negative for anterior neck swelling Resp normal respiratory effort and clear to auscultation bilaterally Auscultation: Negative for rales, rhonchi or wheezes Cardio S1 normal heart sound, S2 normal heart sound and no murmurs Rate: regular rate Rhythm: regular rhythm GI non-tender, non-distended and no masses Inspection: Negative for abdominal distention Auscultation: normoactive bowel sounds Palpation: soft; Negative for tender or guarding Back/Spine no CVA tenderness and normal ROM Extremity normal to inspection; Negative for full ROM General Extremety ED: Negative for cyanosis General Extremity: Negative for cyanosis Neuro oriented x3 Sensorium / Orientation: alert, oriented to person, oriented to place and oriented to time; Negative for orientation impaired, lethargic or stuporous Motor Exam: strength 5/5 throughout Psych mental status grossly normal Mood & Affect: anxious; Negative for depressed Skin General Skin Exam: Negative for jaundice or pallor Lesions: no lesions Rashes: no rashes MDM MDM MDM Narrative Medical decision making narrative: 41-year-old female with URI symptoms most likely has a viral syndrome. Covid test will be rechecked she had a previously -1-week ago. Also a chest x-ray. Pelvic exam is pending due to the patient having recent discharge and her IUD came out. Repeat exam patient is doing well at 3:10 PM. Her exam is benign. Her tests are negative. She will be discharged home with outpatient follow-up with her TRACTOR TRAILER TECHNICIAN to decide if they want to place another IUD. Lab Data Attestation: I reviewed the patient's lab results. Lab results narrative: Rapid Covid antigen test is negative. Urinalysis is negative. Labs: Laboratory Results - last 24 hr 06/05/21 12:22 Urine Color Yellow Urine Clarity Clear Urine pH 7.0 Ur Specific [place] 1.005 Urine Protein Negative Urine Glucose (UA) Normal Urine Ketones Negative Urine Occult Blood Negative Urine Nitrite Negative Urine Bilirubin Negative Urine Urobilinogen Normal Ur Leukocyte Esterase Negative Urine RBC 0 SEEN Urine WBC 0 SEEN Ur Squamous Epith Cells 0-5 SEEN Urine Bacteria 0 SEEN Urine Mucus 0 SEEN Radiography Diagnostic Testing: Clinical Impression(s) from Imaging Studies Chest X-Ray 06/05/21 12:57 IMPRESSION: Normal x-ray examination of the chest. Electronically Signed: Rory Hoffman MD at 13:13 EDT , Service support , Ches portable single view chest x-ray interpreted myself the radiologist shows no acute abnormality. Normal cardiac silhouette. No infiltrate. T x-ray portable 1 view interpreted by myself Discharge Plan Triage Chief Complaint: Shortness of Breath ED Provider: Carlos Leahy Dx/Rx/DC Orders Clinical Impression: Viral URI, IUD complication Instructions: ED URI, Viral, No Abx (Adult) Prescriptions: No Action duloxetine 20 MG capsule 60 mg PO DAILY RF: 0 ibuprofen 600 MG tablet 600 mg PO Q8H PRN PRN (Reason: pain) RF: 0 bupropion HCl 100 MG tablet 100 mg PO BID RF: 0 trazodone 100 MG tablet 100 mg PO QHS RF: 0 esomeprazole magnesium 20 MG capsule,delayed release(DR/EC) 20 mg PO DAILY RF: 0 dextroamphetamine-amphetamine 30 mg tablet 30 mg PO DAILY RF: 0 alprazolam 0.5 mg tablet 0.5 mg PO DAILY PRN (Reason: Anxiety) RF: 0 Primary Care Provider: Dari Ma Referrals: Dari Ma MD [Primary Care Provider] - 1 Week if not improving Activity Restrictions/Additional Instructions: Everything checks out fine today. Your chest x-ray was negative as well as your urinalysis and your Covid test. I suspect she does have a viral respiratory infection which should improve on its own. Follow-up with your TRACTOR TRAILER TECHNICIAN to discuss replacing the IUD that came out. The bleeding should improve if not again you need to be reevaluated. No signs of infection. Disposition Disposition: Home, Self Care
[2021-06-05 13:00] LABS: Bacteria 0 SEEN /hpf (None Seen); Color, Urine Yellow (Yellow); Glucose, Dipstick Normal (Normal); Ketone-Dipstick Negative (Negative); Leukocyte Esterase-Dipstick Negative /ul (Negative); Mucous, Urine 0 SEEN /hpf (<or=2+); Nitrite-Dipstick Negative (Negative); Occult Blood-Urine Negative /ul (Negative); Protein-Dipstick Negative (Negative); Red Blood Cells-Urine 0 SEEN /hpf (0-5); Specific Gravity, Urine 1.005 (1.002-1.030); Urine Bilirubin Dipstick Negative (Negative); Urine Clarity Clear (Clear); Urine Urobilinogen Normal (Normal); White Blood Cells 0 SEEN /hpf (0-5)
[2021-06-05 13:05] LABS: Squamous Epithelial Cells - UA 0-5 SEEN /hpf (5-10)
[2021-06-05 15:14] VITALS: BP 124/77; PULSE 73; RESP 15; O2SAT 98
== END 2021-06-05 15:19 | disposition home or self-care (01) ==
PROVIDERS: Emergency Provider Emergency Medicine; PCP Family Medicine
DX: J06.9 Acute upper respiratory infection, unspecified (principal); T83.9XXA Unspecified complication of genitourinary prosthetic device, implant and graft, initial encounter; F32.A Depression, unspecified; F41.9 Anxiety disorder, unspecified
CPT/HCPCS: 71045; 81001; 87426; 99282

== ENCOUNTER 2021-10-25 23:20 | Emergency (ER) | payer OTHER, MEDICAID, SELFPAY ==
[2021-10-25 23:21] VITALS: BP 151/136; PULSE 116; RESP 16; TEMP 36.1; O2SAT 99; BMI 33.3
[2021-10-26 00:10] VITALS: BP 129/82
--- NOTE | 2021-10-26 01:28 | EX.ED.VIS.EY ---
HPI History of Present Illness Chief Complaint: Eye Problem Informant: patient Onset/Context/Timing Location: Left Eye Onset: Days (2) Context: Gradual Onset Timing: Continuous Current Severity: Severe Maximum Severity: Severe Worsened by: Nothing Relieved by: Nothing Associated Symptoms Associated Symptoms - Eyes: Drainage, Matting, Pain and Redness History of injury: No Visual correction: None Narrative Narrative: Patient has had gradual onset of pain, redness, discharge from the left eye. Her doctor sent her to Dr. Dominguez with ophthalmology who diagnosed her with diamonde and prescribed her an unknown antibiotic drop with dexamethasone which she did not bring with her. She states the pain has worsened, she has a headache with it, mild photophobia, blurry vision to the point of not being able to see much out of the left eye, and given that it is the weekend and she is not scheduled for follow-up until , she presents for evaluation and a pain pill. [facility] Medical History Anxiety Home Medications duloxetine 60 mg PO DAILY 09/30/16 [History Last Taken 01/21/20] ibuprofen 600 mg PO Q8H PRN PRN 02/04/20 [History Last Taken Unknown] bupropion HCl 100 mg PO BID 07/26/20 [History Last Taken Unknown] esomeprazole magnesium 20 mg PO DAILY 07/26/20 [History Last Taken Unknown] trazodone 100 mg PO QHS 07/26/20 [History Last Taken Unknown] alprazolam 0.5 mg PO DAILY PRN 06/05/21 [History Last Taken Unknown] dextroamphetamine-amphetamine 30 mg PO DAILY 06/05/21 [History Last Taken Unknown] hydrocodone-acetaminophen 1 tab PO Q6H PRN PRN 2 Days #10 tablet 10/26/21 [Rx Last Taken Unknown] Allergy/AdvReac Type Severity Reaction Status Date / Time No Known Allergies Allergy Verified 10/25/21 23:23 Social History Smoking Status: Never smoker ROS ROS ED Constitutional Constitutional ED: Denies chills or fever(s) Eyes Eyes: Reports as per HPI, blurry vision left, discharge from eye(s), erythema and eye pain ENT ENT ED: Reports discharge from eye(s); Denies ear pain, rhinorrhea or sore throat Neurologic Neurologic: Denies headache(s), paresthesias or weakness EXAM Physical Exam Const Vital Signs: 10/25/21 23:21 10/26/21 00:10 Temperature 96.9 F L Temperature Source Temporal Pulse Rate 116 H Respiratory Rate 16 Blood Pressure 151/136 H 129/82 H Blood Pressure Mean 141 97 Pulse Ox 99 Oxygen Delivery Method Room Air Positive well nourished and well developed General Appearance ED: well developed and NAD HEENT atraumatic; Negative for tenderness Mouth ED: Yes oral and palatal mucosa normal and Yes lips normal Mouth: oral and palatal mucosa normal and lips normal Eyes PERRL and EOMs intact bilaterally Eyes Narrative: Diffuse bulbar and palpebral left eye conjunctival injection. No chemosis. Mildly dilated left pupil with anisocoria, but it is reactive with no APD. Mild erythema of the eyelids without evidence of kareen periorbital cellulitis/induration/swelling. No proptosis or enophthalmos. On gross inspection no hyphema or hypopyon. Neuro oriented x3, CN's II-XII intact bilaterally and gait normal Sensorium / Orientation: alert Skin Lesions: no lesions Rashes: no rashes MDM MDM MDM Narrative Medical decision making narrative: Her visual acuity is 20/40 out of the left eye and her vision is fairly good there. I applied tetracaine drops to both of her eyes, and this significantly helped her left eye pain but she still had some of the left frontal headache. Using a Jorgito-Pen that was calibrated by myself, I lie her supine and check the pressure of her eyes on both of them. With less than 5% chance of error, 3 separate measurements of both eyes yielded measurements of 18-21 on both. She is reassured and given a prescription for a few [place], and advised to follow-up and she is comfortable with that plan. I do agree that the evaluation is consistent with conjunctivitis. Discharge Plan Triage Chief Complaint: Eye Problem ED Provider: Levi Heaton Dx/Rx/DC Orders Clinical Impression: Acute conjunctivitis of left eye Instructions: ED Conjunctivitis, Nonspecific Prescriptions: New hydrocodone-acetaminophen 5-325 mg tablet 1 tab PO Q6H PRN PRN (Reason: Pain) 2 Days Qty: 10 RF: 0 No Action duloxetine 20 MG capsule 60 mg PO DAILY RF: 0 ibuprofen 600 MG tablet 600 mg PO Q8H PRN PRN (Reason: pain) RF: 0 bupropion HCl 100 MG tablet 100 mg PO BID RF: 0 trazodone 100 MG tablet 100 mg PO QHS RF: 0 esomeprazole magnesium 20 MG capsule,delayed release(DR/EC) 20 mg PO DAILY RF: 0 dextroamphetamine-amphetamine 30 mg tablet 30 mg PO DAILY RF: 0 alprazolam 0.5 mg tablet 0.5 mg PO DAILY PRN (Reason: Anxiety) RF: 0 Primary Care Provider: Dari Ma Referrals: Dari Ma MD [Primary Care Provider] - Juan Dominguez MD [STAFF PHYSICIAN] - [facility] appointment Disposition Disposition: Home, Self Care
[2021-10-26] MEDS: Tetracaine 0.5% Ophthalmic Bottle 3 DRP LEFT EYE (01:54)
== END 2021-10-26 02:10 | disposition home or self-care (01) ==
PROVIDERS: Emergency Provider Emergency Medicine; PCP Family Medicine; Visit Provider Emergency Medicine
DX: H10.32 Unspecified acute conjunctivitis, left eye (principal); R51.9 Headache, unspecified
CPT/HCPCS: 99283

== ENCOUNTER 2021-12-28 20:43 | Emergency (ER) | payer MEDICAID, SELFPAY ==
[2021-12-28 20:45] VITALS: BP 137/86; PULSE 90; RESP 17; TEMP 36.5; O2SAT 99; BMI 30.9
[2021-12-28 21:13] VITALS: RESP 16
--- NOTE | 2021-12-28 21:14 | ED.VIS.DENTA ---
HPI History of Present Illness Chief Complaint: General Illness Narrative Narrative: 41-year-old female presenting with dental pain. She states this is approximately her second premolar on the right. She states she had surgery on this previously. Her previous dentist is no longer takes her insurance. She states she is trying to get a new dentist. She reports that she had several days of pain in the tooth of question. She denies fever, chills. She denies facial swelling. She denies trouble swallowing or breathing. No nausea or vomiting. She has had no trauma. [facility] Medical History Anxiety Home Medications duloxetine 60 mg PO DAILY 09/30/16 [History Last Taken 12/28/21] esomeprazole magnesium 20 mg PO DAILY 07/26/20 [History Last Taken 12/28/21] trazodone 100 mg PO QHS 07/26/20 [History Last Taken 12/27/21] amoxicillin-pot clavulanate 1 tab PO BID #20 tab 12/28/21 [Rx Last Taken Unknown] buspirone 15 mg PO TID 12/28/21 [History Last Taken 12/28/21] hydrocodone-acetaminophen 1 tab PO Q6H PRN 3 Days #12 tab 12/28/21 [Rx Last Taken Unknown] ibuprofen 800 mg PO Q8H PRN PRN 12/28/21 [History Last Taken Unknown] Allergy/AdvReac Type Severity Reaction Status Date / Time No Known Allergies Allergy Verified 12/28/21 20:44 Social History Smoking Status: Never smoker ROS ROS ED Constitutional Constitutional ED: Denies chills or fever(s) Eyes Eyes: Denies blurry vision or other ENT ENT ED: Reports other Details: Right mandibular dental pain ; Denies ear pain, rhinorrhea or sore throat Cardiovascular Cardiovascular: Denies chest pain or palpitations Respiratory/Chest Respiratory/Chest: Denies cough or dyspnea Gastrointestinal Gastrointestinal: Denies abdominal pain or nausea Genitourinary Genitourinary ED: Denies dysuria or hematuria Musculoskeletal Musculoskeletal: Denies arthralgias or myalgias Integumentary Denies abscess or rash Neurologic Neurologic: Denies headache(s) or weakness Psychiatric Psychiatric: Denies anxiety or depression EXAM Physical Exam Const Vital Signs: 12/28/21 20:45 12/28/21 21:13 Temperature 97.7 F L Temperature Source Temporal Pulse Rate 90 Respiratory Rate 17 16 Blood Pressure 137/86 H Blood Pressure Mean 103 Pulse Ox 99 Oxygen Delivery Method Room Air Positive well nourished General Appearance ED: NAD PETRA LAMBERT Narrative: Right premolar tender to palpation/percussion tenderness. No focal fluctuance. Negative for trauma Mouth ED: Yes oral and palatal mucosa normal, Yes lips normal, Yes tongue normal and Yes salivary gland normal Mouth: oral and palatal mucosa normal, lips normal, tongue normal and salivary gland normal Throat: posterior oropharynx normal Eyes PERRL and EOMs intact bilaterally Neck no lymphadenopathy and supple General: Negative for anterior neck swelling or submandibular swelling Lymph Lymphatic: no lymphadenopathy noted Chest Wall inspection of chest normal Resp normal respiratory effort Cardio regular rate and regular rhythm Neuro oriented x3 and CN's II-XII intact bilaterally Psych mental status grossly normal Skin no rashes or lesions noted MDM MDM MDM Narrative Medical decision making narrative: Patient likely having dental abscess presenting with dental pain for several days. She is currently trying to establish with a new dentist. She has no facial swelling. No sign of Ludewig's due to. No trouble talking, swallowing, breathing. Patient will be started on Augmentin here in the ER with first dose given. She is given a prescription for [place] and Augmentin. Prescriptions were filled at the hospital prior to discharge. Impression: 1. Dental pain 2. Dental infection Lab Data Attestation: I reviewed the patient's lab results. Discharge Plan Triage Chief Complaint: General Illness ED Provider: Rafael Burton Dx/Rx/DC Orders Instructions: ED Dental Cavity, ED Dental Abscess Prescriptions: New hydrocodone-acetaminophen 5-325 mg tablet 1 tab PO Q6H PRN (Reason: pain) 3 Days Qty: 12 RF: 0 amoxicillin-pot clavulanate 875-125 mg tablet 1 tab PO BID Qty: 20 RF: 0 No Action duloxetine 20 MG capsule 60 mg PO DAILY RF: 0 trazodone 100 MG tablet 100 mg PO QHS RF: 0 esomeprazole magnesium 20 MG capsule,delayed release(DR/EC) 20 mg PO DAILY RF: 0 buspirone 15 mg tablet 15 mg PO TID RF: 0 ibuprofen 800 mg Tablet 800 mg PO Q8H PRN PRN (Reason: Pain) RF: 0 Primary Care Provider: Edward Whiteside Referrals: Edward Whiteside MD [Primary Care Provider] - Disposition Disposition: Home, Self Care
== END 2021-12-28 21:30 | disposition home or self-care (01) ==
PROVIDERS: Emergency Provider Student in an Organized Health Care Education/Training Program; PCP Family Medicine; Visit Provider Student in an Organized Health Care Education/Training Program
DX: K04.7 Periapical abscess without sinus (principal); K08.89 Other specified disorders of teeth and supporting structures; F41.9 Anxiety disorder, unspecified
CPT/HCPCS: 99283

== ENCOUNTER 2022-01-03 19:20 | Emergency (ER) | payer MEDICAID, SELFPAY ==
[2022-01-03 19:21] VITALS: BP 119/90; PULSE 87; RESP 16; TEMP 36.3; O2SAT 100; BMI 30.9
--- NOTE | 2022-01-03 19:34 | EDS_ITS ---
HPI History of Present Illness Chief Complaint: Other, Pain/Inj Detail of Chief Complaint: Hemorrhoid pain Informant: patient Onset/Context/Timing Onset: Days Context: Gradual Onset Narrative Narrative: Patient presents secondary to pain from external hemorrhoids. She states that the been bothering her the last 2 or 3 days. She did have quite a bit of bleeding from them earlier today. She has been trying [id number] creams without improvement. [facility] Medical History Anxiety Home Medications duloxetine 60 mg PO DAILY 09/30/16 [History Last Taken 01/03/22] trazodone 100 mg PO QHS 07/26/20 [History Last Taken 01/02/22] buspirone 15 mg PO TID 12/28/21 [History Last Taken 01/03/22] ibuprofen 600 mg PO Q8H PRN PRN 12/28/21 [History Last Taken Unknown] docusate sodium [Colace] 100 mg PO BID PRN #10 cap 01/03/22 [Rx Last Taken Unknown] hydrocortisone [Anusol-HC] 1 applic MD QHS PRN #30 g 01/03/22 [Rx Last Taken Unknown] hydrocortisone acetate [Anucort-HC] 25 mg MD BID #12 ea 01/03/22 [Rx Last Taken Unknown] Allergy/AdvReac Type Severity Reaction Status Date / Time No Known Allergies Allergy Verified 01/03/22 19:24 Social History Smoking Status: Never smoker ROS ROS ED Constitutional Constitutional ED: Denies chills or fever(s) Eyes Eyes: Denies change in vision ENT ENT ED: Denies sore throat Cardiovascular Cardiovascular: Denies chest pain Respiratory/Chest Respiratory/Chest: Denies cough or dyspnea Gastrointestinal Gastrointestinal: Reports other Details: Rectal pain/hemorrhoids ; Denies abdominal pain, nausea or vomiting Genitourinary Genitourinary ED: Denies dysuria Musculoskeletal Musculoskeletal: Denies back pain Integumentary Denies rash Neurologic Neurologic: Denies headache(s) Allergic/Immunologic Allergic/Immunologic ED: Denies urticaria EXAM Physical Exam Const Vital Signs: 01/03/22 19:21 Temperature 97.3 F L Temperature Source Temporal Pulse Rate 87 Respiratory Rate 16 Blood Pressure 119/90 H Blood Pressure Mean 99 Pulse Ox 100 Oxygen Delivery Method Room Air Positive well nourished and well developed General Appearance ED: well developed HEENT Reports moist mucous membranes Eyes PERRL and EOMs intact bilaterally Neck supple Chest Wall inspection of chest normal and palpation of chest normal Resp normal respiratory effort and clear to auscultation bilaterally Cardio regular rate and regular rhythm GI non-tender GI Narrative: Mildly inflamed, tender external hemorrhoid with opening consistent with recent drainage. No active bleeding at this time. Palpation: soft Neuro oriented x3 Sensorium / Orientation: alert Psych mental status grossly normal Skin no rashes or lesions noted MDM MDM MDM Narrative Medical decision making narrative: I believe the bleeding the patient had earlier today was the hemorrhoid draining itself. There is no thrombosed hemorrhoid at this time to drain. Patient will be given suppositories and topical creams to use along with stool softener. She will continue Tylenol and ibuprofen. We did recommend sitz bath's. She will be referred to one of the surgeons in [facility] for follow-up on an as-needed basis. Discharge Plan Triage Chief Complaint: Other, Pain/Inj ED Provider: Latricia Chacon Dx/Rx/DC Orders Clinical Impression: External hemorrhoids Instructions: ED Hemorrhoids Prescriptions: New hydrocortisone acetate [Anucort-HC] 25 mg suppository 25 mg MD BID Qty: 12 RF: 0 hydrocortisone [Anusol-HC] 2.5 % cream with perineal applicator 1 applic MD QHS PRN (Reason: hemorrhoids) Qty: 30 RF: 0 docusate sodium [Colace] 100 mg capsule 100 mg PO BID PRN (Reason: constipation) Qty: 10 RF: 0 No Action duloxetine 20 MG capsule 60 mg PO DAILY RF: 0 trazodone 100 MG tablet 100 mg PO QHS RF: 0 buspirone 15 mg tablet 15 mg PO TID RF: 0 ibuprofen 800 mg Tablet 600 mg PO Q8H PRN PRN (Reason: Pain) RF: 0 Primary Care Provider: Edward Whiteside Referrals: Edward Whiteside MD [Primary Care Provider] - Cathy Corcoran MD [STAFF PHYSICIAN] - As Needed Disposition Disposition: Home, Self Care
[2022-01-03 19:48] VITALS: RESP 16
[2022-01-03] MEDS: Hydrocortisone 25 MG Suppository RC (19:48)
== END 2022-01-03 19:49 | disposition home or self-care (01) ==
PROVIDERS: Emergency Provider Emergency Medicine; PCP Family Medicine; Visit Provider Emergency Medicine
DX: K64.4 Residual hemorrhoidal skin tags (principal); F41.9 Anxiety disorder, unspecified
CPT/HCPCS: 99282

== ENCOUNTER 2022-01-19 21:09 | Emergency (ER) | payer MEDICAID, SELFPAY ==
[2022-01-19 21:10] VITALS: BP 131/91; PULSE 79; RESP 16; TEMP 36.8; O2SAT 99; BMI 34.4
--- NOTE | 2022-01-19 21:37 | ED.VIS.DENTA ---
HPI History of Present Illness Chief Complaint: Dental Narrative Narrative: Patient presents with dental pain, she has a history of dental pain and she is set to get this tooth removed in about 2 weeks. She has some swelling of her face but she has no fever no difficulty swallowing or eating. [facility] Medical History (Updated 01/19/22 @ 21:[address] John García MD) Anxiety Depressed bipolar I disorder Home Medications duloxetine 60 mg PO DAILY 09/30/16 [History Last Taken 01/03/22] trazodone 100 mg PO QHS 07/26/20 [History Last Taken 01/02/22] buspirone 15 mg PO TID 12/28/21 [History Last Taken 01/03/22] ibuprofen 600 mg PO Q8H PRN PRN 12/28/21 [History Last Taken Unknown] docusate sodium [Colace] 100 mg PO BID PRN #10 cap 01/03/22 [Rx Last Taken Unknown] hydrocortisone [Anusol-HC] 1 applic [place] QHS PRN #30 g 01/03/22 [Rx Last Taken Unknown] hydrocortisone acetate [Anucort-HC] 25 mg [place] BID #12 ea 01/03/22 [Rx Last Taken Unknown] amoxicillin 500 mg PO BID #14 cap 01/19/22 [Rx Last Taken Unknown] naproxen [Naprosyn] 500 mg PO BID #20 tab 01/19/22 [Rx Last Taken Unknown] Allergy/AdvReac Type Severity Reaction Status Date / Time No Known Allergies Allergy Verified 01/19/22 21:12 Social History Smoking Status: Never smoker ROS ROS ED ROS Narrative Past medical history: Reviewed Medications: Reviewed Social history: Noncontributory Review of systems: All systems negative except as indicated General: No fever Eyes: No visual changes ENT: Dental pain as in HPI Neck: No neck pain Cardiovascular: No chest pain Respiratory: No shortness of breath or cough Gastrointestinal: No abdominal pain, nausea vomiting or diarrhea Hematologic: No easy bleeding or easy bruising EXAM Physical Exam Narrative Exam Narrative: Physical exam General: Well nourished, Well developed, No Acute Distress Head: Normocephalic, Atraumatic Eyes: Conjunctiva not pale ENT: Moist mucous membranes. Normal posterior oropharynx. She has dental pain right lower second molar, no obvious periapical abscess she has some slight swelling of her face. Neck: Supple, Nontender, No lymphadenopathy Cardiovascular: Regular rate, Regular rhythm Respiratory: No distress, CTA bilaterally Skin: Normal color, No rash Neurological: No facial droop Const Vital Signs: 01/19/22 21:10 Temperature 98.3 F Temperature Source Temporal Pulse Rate 79 Respiratory Rate 16 Blood Pressure 131/91 H Blood Pressure Mean 104 Pulse Ox 99 Oxygen Delivery Method Room Air MDM MDM MDM Narrative Medical decision making narrative: Patient has a dental infection which we will treat with antibiotics otherwise I will discharge in stable condition to follow-up with her dentist. Discharge Plan Triage Chief Complaint: Dental ED Provider: John García Dx/Rx/DC Orders Clinical Impression: Dental infection, Pain, dental Instructions: ED Dental Pain Prescriptions: New amoxicillin 500 mg capsule 500 mg PO BID Qty: 14 RF: 0 naproxen [Naprosyn] 500 mg tablet 500 mg PO BID Qty: 20 RF: 0 No Action duloxetine 20 MG capsule 60 mg PO DAILY RF: 0 trazodone 100 MG tablet 100 mg PO QHS RF: 0 buspirone 15 mg tablet 15 mg PO TID RF: 0 ibuprofen 800 mg Tablet 600 mg PO Q8H PRN PRN (Reason: Pain) RF: 0 hydrocortisone acetate [Anucort-HC] 25 mg suppository 25 mg [place] BID Qty: 12 RF: 0 hydrocortisone [Anusol-HC] 2.5 % cream with perineal applicator 1 applic [place] QHS PRN (Reason: hemorrhoids) Qty: 30 RF: 0 docusate sodium [Colace] 100 mg capsule 100 mg PO BID PRN (Reason: constipation) Qty: 10 RF: 0 Primary Care Provider: Edward Whiteside Referrals: Edward Whiteside MD [Primary Care Provider] - 2 Days Disposition Disposition: Home, Self Care
[2022-01-19] MEDS: AMOXICILLIN 500 MG CAPSULE PO (21:40)
[2022-01-19] MEDS: HYDROcodone Bitartrate/Apap 5/325 Tablet PO (21:40)
== END 2022-01-19 21:45 | disposition home or self-care (01) ==
PROVIDERS: Emergency Provider Emergency Medicine; PCP Family Medicine; Visit Provider Emergency Medicine
DX: K04.7 Periapical abscess without sinus (principal); F31.9 Bipolar disorder, unspecified; F41.9 Anxiety disorder, unspecified
CPT/HCPCS: 99283

== ENCOUNTER 2023-07-15 20:31 | Inpatient (IN) | payer MEDICAID, SELFPAY ==
[2023-07-15 20:32] VITALS: BP 148/99; PULSE 124; RESP 18; TEMP 36.4; O2SAT 100; BMI 28.8
--- NOTE | 2023-07-15 20:48 | NURSING ---
pt went outside to get her boyfriend,who also wants to go to rehab and has not came back in yet.
[2023-07-15 22:15] VITALS: PULSE 120
--- NOTE | 2023-07-15 22:46 | EX.ED.SAOD ---
HPI History of Present Illness Chief Complaint: Substance Abuse Informant: patient Onset/Context/Timing Onset: Days Context: Gradual Onset Timing: Intermittent Current Severity: Mild Maximum Severity: Mild Narrative Narrative: 43-year-old female history of drug abuse including benzodiazepines, marijuana, cocaine. Also has a history anxiety depression. Is requesting detox tonight. Says she feels like she is withdrawing from the benzodiazepines. Prior similar symptoms: Yes Recent Illness/Hospitalization: No PFSH PFSH Medical History Anxiety Depressed bipolar I disorder Home Medications duloxetine 20 mg capsule,delayed release 60 mg PO DAILY depression/anxiety 09/30/16 [History Last Taken 01/03/22] trazodone 100 mg tablet 100 mg PO QHS sleep 07/26/20 [History Last Taken 01/02/22] buspirone 15 mg tablet 15 mg PO TID depression 12/28/21 [History Last Taken 01/03/22] ibuprofen 800 mg tablet 600 mg PO Q8H PRN PRN Pain 12/28/21 [History Last Taken Unknown] hydrocortisone acetate 25 mg rectal suppository (Anucort-HC) 25 mg [place] BID #12 ea 01/03/22 [Rx Last Taken Unknown] dextroamphetamine-amphetamine 30 mg tablet 30 mg PO DAILY 07/15/23 [History Last Taken Unknown] lamotrigine 100 mg tablet 100 mg PO DAILY 07/15/23 [History Last Taken Unknown] Allergy/AdvReac Type Severity Reaction Status Date / Time No Known Allergies Allergy Verified 07/15/23 20:37 Social History Smoking Status: Current every day smoker tobacco type: cigarettes ROS ROS ED ROS Narrative Anxiety. Review of Systems ROS Unobtainable: Denies due to encephalopathy Constitutional Constitutional ED: Denies chills or fever(s) Eyes Eyes: Denies blurry vision ENT ENT ED: Denies ear pain Cardiovascular Cardiovascular: Denies chest pain Respiratory/Chest Respiratory/Chest: Denies cough or dyspnea Gastrointestinal Gastrointestinal: Denies abdominal pain Genitourinary Genitourinary ED: Denies dysuria Musculoskeletal Musculoskeletal: Denies arthralgias, back pain or myalgias Integumentary Denies abscess Neurologic Neurologic: Denies headache(s) Psychiatric Psychiatric: Denies anxiety or depression Endocrine Endocrinology: Denies cold intolerance Hematologic/Lymphatic Hematologic/Lymphatic: Denies easy bleeding, easy bruising or lymphadenopathy Allergic/Immunologic Allergic/Immunologic ED: Denies mouth swelling, tongue swelling or urticaria EXAM Physical Exam Narrative Exam Narrative: Well-appearing 43-year-old female. Vital signs are stable. She is tachycardic at 120. H EENT exam unremarkable. Moist with membranes. Neck nontender. Lungs clear to auscultation bilaterally. Heart tachycardic rate about 120 no murmur. Chest wall and ribs nontender. Abdomen soft nontender. Back nontender. Moving all 4 extremities. Nontender no edema. No track chandler. Neurologically she is awake alert with no focal motor deficits. Const Vital Signs: 07/15/23 20:32 07/15/23 22:15 07/15/23 23:00 Temperature 97.6 F L Temperature Source Temporal Pulse Rate 124 H 120 H 123 H Respiratory Rate 18 16 Blood Pressure 148/99 H 127/88 H Blood Pressure Mean 115 101 Blood Pressure Source Blood Pressure Position Blood Pressure Location Pulse Ox 100 97 Oxygen Delivery Method Room Air Room Air 07/15/23 23:19 07/15/23 23:57 Temperature 97.8 F Temperature Source Oral Pulse Rate 123 H 101 H Respiratory Rate 17 18 Blood Pressure 127/88 H 134/82 H Blood Pressure Mean 101 99 Blood Pressure Source Monitor Blood Pressure Position Semi-Fowlers Blood Pressure Location Left Arm Pulse Ox 98 99 Oxygen Delivery Method Room Air Positive well nourished and well developed; Negative for cachectic, contractures or unkempt General Appearance ED: well developed and NAD; Negative for unkempt, cachectic, contractures or pallor Nutritional Appearance: Negative for cachectic HEENT Reports moist mucous membranes; Denies dry mucous membranes Negative for atraumatic, trauma or tenderness Mouth ED: No dry mucous membranes Mouth: No dry mucous membranes Eyes PERRL and EOMs intact bilaterally General Eye ED: Negative for pale conjunctiva or scleral icterus Neck no lymphadenopathy, supple and no JVD Thyroid: Negative for tender Lymph Lymphatic: no lymphadenopathy noted; Negative for lymphadenopathy Chest Wall inspection of chest normal and palpation of chest normal Chest: Negative for other Resp normal respiratory effort and clear to auscultation bilaterally Effort and Inspection: Negative for retractions Auscultation: Negative for rales or rhonchi Cardio regular rhythm, S1 normal heart sound, S2 normal heart sound and no murmurs; Negative for regular rate Rate: tachycardic Rhythm: Negative for abnormal rhythm Bruits: Negative for other GI soft to palpation, non-tender, non-distended and no masses Inspection: Negative for abdominal distention Auscultation: Negative for hyperactive bowel sounds Palpation: Negative for tender, guarding or rigid Bladder / Kidney Exam: No other Back/Spine no CVA tenderness General Back: Negative for CVA tenderness Cervical Spine: Negative for cervical spine tenderness Thoracic Spine / Upper Back: Negative for thoracic spinal tenderness Lumbar Spine / Lower Back: Negative for lumbar spinal tenderness Coccyx: Negative for swelling Extremity General Extremety ED: Negative for edema or tenderness General Extremity: Negative for edema Neuro oriented x3 and CN's II-XII intact bilaterally Sensorium / Orientation: alert, oriented to person and oriented to place; Negative for oriented to time, confused, lethargic or stuporous Speech: speech normal Motor Exam: strength 5/5 throughout Psych mental status grossly normal and thought process normal Appearance: Negative for unkempt Attitude: No belligerent, No agitated and No aggressive Mood & Affect: Negative for depressed or anxious Skin General Skin Exam: Negative for jaundice or pallor Lesions: no lesions Rashes: no rashes Trauma: Negative for abrasion MDM MDM MDM Narrative Medical decision making narrative: 43-year-old female requesting inpatient detox. Exam benign other than a mild tachycardia. I have already spoken to the hospitalist. Screening labs are being obtained. She will be admitted for detox. History & Record Review Discussion w/independent historian: Patient Additional record(s) reviewed:: Prior inpatient record, Prior outpatient record, Prior ED visit and Prior labs Lab Data Attestation: I reviewed the patient's lab results. Lab results narrative: Patient CBC is unremarkable with a white count of 10. H&H 12 and 37. Platelets 410. CMP shows a potassium of 3.4. Normal gap is 6. Normal BUN and creatinine. Normal liver enzymes. Labs: Laboratory Results - last 24 hr 07/15/23 23:00 WBC 10.7 RBC 4.41 Hgb 12.9 Hct 37.9 MCV 85.9 MCH 29.3 MCHC 34.0 RDW Std Deviation 41.9 RDW Coeff of Vignesh 13.5 Plt Count 410 MPV 9.9 Immature Gran % (Auto) 0.200 Neut % (Auto) 47.9 Lymph % (Auto) 37.5 [place] % (Auto) 12.7 H Eos % (Auto) 1.1 Baso % (Auto) 0.6 Absolute Neuts (auto) 5.1 Absolute Lymphs (auto) 4.00 Nucleated RBC % 0 Sodium 138 Potassium 3.4 L Chloride 107 Carbon Dioxide 25.0 Anion Gap 6 BUN 7 Creatinine 0.79 Estim Creat Clear Calc 77.52 Est GFR (MDRD) Af Amer 103 Est GFR (MDRD) Non-Af 85 BUN/Creatinine Ratio 8.8 L Glucose 97 Calcium 9.2 Total Bilirubin 0.30 AST 29 ALT 29 Alkaline Phosphatase 66 Total Protein 7.1 Albumin 3.6 Globulin 3.5 Albumin/Globulin Ratio 1.0 Discharge Plan Dx/Rx/DC Orders Clinical Impression: Substance abuse, Benzodiazepine withdrawal, Admitted to substance misuse detoxification center Disposition Disposition: Acute Care [facility] Discharge Date/Time: 07/15/23 23:37
[2023-07-15 23:00] VITALS: BP 127/88; PULSE 123; RESP 16; O2SAT 97
[2023-07-15 23:07] LABS: Absolute Neutrophil Count 5.1 X10^3/uL (2.0-7.7); Basophil# 0.06 X10^3/uL; Basophil% 0.6 % (0-1); Eosinophil# 0.12 X10^3/uL; Eosinophils% 1.1 % (0-5); Hematocrit 37.9 % (37-47); Hemoglobin 12.9 g/dL (12.0-15.0); Lymphocyte % 37.5 % (19-41); Mean Corpuscular Hgb 29.3 pg (27.0-32.0); Mean Corpuscular Volume 85.9 fL (81-99); Mean Platelet Vol. 9.9 fl (6.2-12.0); Monocyte# 1.36 X10^3/uL; Monocyte% 12.7 % (0-10); NRBC Flagged by Analyzer 0 % (0-5); Neutrophil # 5.11 X10^3/uL (2.7-7.7); Neutrophil % 47.9 % (47-70); Platelet Count 410 K/mm3 (150-450); RBC Distribution Width CV 13.5 % (11.6-14.6); RBC Distribution Width SD 41.9 fl (35.1-43.9); Red Blood Count 4.41 M/mm3 (4.2-5.4); White Blood Count 10.7 K/mm3 (4.4-11.0)
[2023-07-15 23:19] VITALS: BP 127/88; PULSE 123; RESP 17; O2SAT 98
[2023-07-15 23:32] LABS: AST(SGOT) 29 U/L (15-37); Alanine Aminotransfer ALT/SGPT 29 U/L (13-56); Albumin, Serum 3.6 g/dL (3.2-5.0); Alkaline Phosphatase 66 U/L (45-117); Anion Gap 6 (5-15); BUN 7 mg/dL (7-18); BUN/Creat Ratio 8.8 RATIO (10-20); Calcium,Total 9.2 mg/dL (8.5-10.1); Chloride 107 mmol/L (98-107); Creatinine, Serum 0.79 mg/dL (0.55-1.02); EST Glomerular Filtration Rate 85 mL/min (>60); Est Glom Filt Rate - Afr Amer 103 mL/min (>60); Estimated Creatinine Clearance 77.52 ml/min; Globulin 3.5 g/dL (2.2-4.2); Glucose 97 mg/dL (74-106); Potassium 3.4 mmol/L (3.5-5.1); Protein, Total 7.1 g/dL (6.4-8.2); Sodium Level 138 mmol/L (136-145)
[2023-07-15 23:38] VITALS: BMI 27.9
[2023-07-15 23:57] VITALS: BP 134/82; PULSE 101; RESP 18; TEMP 36.6; O2SAT 99
[2023-07-16] MEDS: LORazepam 1 MG Tablet 2 MG PO ×2 (00:24→04:48)
[2023-07-16] MEDS: traZODone 100 MG Tablet PO ×2 (00:24→20:57)
[2023-07-16] MEDS: hydrOXYzine PAM 25 MG Capsule 50 MG PO (00:25)
--- NOTE | 2023-07-16 00:58 | HP.PCM.HOS_ITS ---
HPI - General General Date of Admission: 07/16/23 Date of Service: 07/15/23 Chief Complaint: Benzodiazepine withdrawal HPI Narrative KENY AKINS, is a 43 F who presents to the emergency department seeking assistance in quitting benzodiazepine use and overcoming symptoms of benzodiazepine withdrawal. She has a history of ongoing Xanax use for the last few years. Today has also taken Adderall, methamphetamine. She also used cocaine last week. Is having a lot of anxiety, tremulousness of her extremities and would like some management for the same. Has multiple injuries over her skin due to skin picking due to the withdrawal symptoms. No fever, chills, shortness of breath. [facility] Medical History Anxiety Depressed bipolar I disorder Home Medications duloxetine 20 mg capsule,delayed release 60 mg PO DAILY depression/anxiety 09/30/16 [History Last Taken 01/03/22] trazodone 100 mg tablet 100 mg PO QHS sleep 07/26/20 [History Last Taken 01/02/22] buspirone 15 mg tablet 15 mg PO TID depression 12/28/21 [History Last Taken 01/03/22] ibuprofen 800 mg tablet 600 mg PO Q8H PRN PRN Pain 12/28/21 [History Last Taken Unknown] hydrocortisone acetate 25 mg rectal suppository (Anucort-HC) 25 mg [place] BID #12 ea 01/03/22 [Rx Last Taken Unknown] dextroamphetamine-amphetamine 30 mg tablet 30 mg PO DAILY 07/15/23 [History Last Taken Unknown] lamotrigine 100 mg tablet 100 mg PO DAILY 07/15/23 [History Last Taken Unknown] Allergy/AdvReac Type Severity Reaction Status Date / Time No Known Allergies Allergy Verified 07/15/23 20:37 Social History Smoking Status: Current every day smoker tobacco type: cigarettes ROS Cardiovascular Cardiovascular: Reports lightheadedness, palpitations and rapid heart rate; Denies dyspnea on exertion or edema Respiratory/Chest Respiratory/Chest: Denies dyspnea, shortness of breath with exertion or wheezing Gastrointestinal Gastrointestinal: Denies abdominal pain Genitourinary Genitourinary: Denies burning urination or difficulty urinating Musculoskeletal Musculoskeletal: Denies arthralgias or back pain Psychiatric Psychiatric: Reports anxiety and depression Vital Signs Vital Signs Vital Signs: 07/15/23 20:32 07/15/23 22:15 07/15/23 23:00 Temperature 97.6 F L Temperature Source Temporal Pulse Rate 124 H 120 H 123 H Respiratory Rate 18 16 Blood Pressure 148/99 H 127/88 H Blood Pressure Mean 115 101 Blood Pressure Source Blood Pressure Position Blood Pressure Location Pulse Ox 100 97 Oxygen Delivery Method Room Air Room Air 07/15/23 23:19 07/15/23 23:57 Temperature 97.8 F Temperature Source Oral Pulse Rate 123 H 101 H Respiratory Rate 17 18 Blood Pressure 127/88 H 134/82 H Blood Pressure Mean 101 99 Blood Pressure Source Monitor Blood Pressure Position Semi-Fowlers Blood Pressure Location Left Arm Pulse Ox 98 99 Oxygen Delivery Method Room Air Weight Weight: 162 lb 11.218 oz Body Mass Index (BMI) 27.9 Physical Exam Const alert and oriented x3 General Appearance: cooperative HEENT normocephalic Eyes PERRL Neck no lymphadenopathy Cardio regular rate GI normal to inspection, nondistended, normoactive bowel sounds Extremity normal to inspection Skin Skin Narrative: Multiple circumferential erosions present throughout upper extremities and the trunk. Neuro Neuro Narrative: Pressured speech, easily distractible Psych Mood & Affect: anxious Results Lab / Micro Data 07/15/23 23:00 07/15/23 23:00 Labs: Laboratory Results - last 24 hr 07/15/23 23:00: WBC 10.7, RBC 4.41, Hgb 12.9, Hct 37.9, MCV 85.9, MCH 29.3, MCHC 34.0, RDW Std Deviation 41.9, RDW Coeff of Vignesh 13.5, Plt Count 410, MPV 9.9, Immature Gran % (Auto) 0.200, Neut % (Auto) 47.9, Lymph % (Auto) 37.5, [place] % (Auto) 12.7 H, Eos % (Auto) 1.1, Baso % (Auto) 0.6, Absolute Neuts (auto) 5.1, Absolute Lymphs (auto) 4.00, Nucleated RBC % 0, Sodium 138, Potassium 3.4 L, Chloride 107, Carbon Dioxide 25.0, Anion Gap 6, BUN 7, Creatinine 0.79, Estim Creat Clear Calc 77.52, Est GFR (MDRD) Af Amer 103, Est GFR (MDRD) Non-Af 85, BUN/Creatinine Ratio 8.8 L, Glucose 97, Calcium 9.2, Total Bilirubin 0.30, AST 29, ALT 29, Alkaline Phosphatase 66, Total Protein 7.1, Albumin 3.6, Globulin 3.5, Albumin/Globulin Ratio 1.0 Assessment & Plan Assessment/Plan (1) Benzodiazepine withdrawal: PLAN: We would start her on benzodiazepine withdrawal regimen including gabapentin. The symptoms are mild and she would be able to tolerate PO medicaitons. (2) Substance abuse: PLAN: The importance of quitting cocaine, Adderall, methamphetamine use was discussed with the patient. No pharmacotherapy is available for the same. She is motivated to quit, would like to follow-up with rehabilitation services. (3) Admitted to substance misuse detoxification center: PLAN: The importance of quitting cocaine, Adderall, methamphetamine use was d iscussed with the patient. No pharmacotherapy is available for the same. She is motivated to quit, would like to follow-up with rehabilitation services. Charges/Coding Visit Charges Inpatient E&M: 37975 Init Hosp L3
[2023-07-16 04:44] VITALS: BP 128/72; PULSE 103; RESP 14; TEMP 36.6; O2SAT 100
[2023-07-16 06:21] LABS: Basophil# 0.04 X10^3/uL; Basophil% 0.4 % (0-1); Eosinophil# 0.15 X10^3/uL; Eosinophils% 1.7 % (0-5); Hemoglobin 12.2 g/dL (12.0-15.0); Lymphocyte % 41.2 % (19-41); Mean Corpuscular Hgb 28.8 pg (27.0-32.0); Mean Corpuscular Volume 87.3 fL (81-99); Mean Platelet Vol. 10.2 fl (6.2-12.0); Monocyte# 1.06 X10^3/uL; Monocyte% 11.8 % (0-10); NRBC Flagged by Analyzer 0 % (0-5); Neutrophil # 4.02 X10^3/uL (2.7-7.7); Neutrophil % 44.8 % (47-70); Platelet Count 370 K/mm3 (150-450); RBC Distribution Width CV 14.1 % (11.6-14.6); RBC Distribution Width SD 44.6 fl (35.1-43.9); Red Blood Count 4.24 M/mm3 (4.2-5.4)
--- NOTE | 2023-07-16 06:57 | PN.HOSP_ITS ---
Reason for Visit Reason for Visit: Benzodiazepine withdrawal Subjective Subjective Patient is a 43-year-old female who presents emergency department at [facility] late in the evening of 07/15/2023 seeking assistance in detox from benzodiazepines. She has had ongoing use of Xanax for several years and also has taken Adderall and methamphetamine. She reported she used cocaine last week. Upon presentation she was having a lot of anxiety and tremulousness of her extremities. She has multiple injuries all of her skin due to picking related to her withdrawal symptoms. She otherwise only has a history of bipolar disorder and is on medication for this chronically. She was admitted to the medical floor and started on an Ativan taper. Objective Data Objective Data Vital Signs: Vital Signs Temp Pulse Resp BP Pulse Ox O2 Del Method 97.8 F 103 H 14 128/72 H 100 Room Air 07/16/23 04:44 07/16/23 04:44 07/16/23 04:44 07/16/23 04:44 07/16/23 04:44 07/16/23 04:44 Oxygen Delivery Method Room Air Weight: 73.8 kg Body Mass Index (BMI) 27.9 Intake & Output: Intake and Output for Last 24 Hours 07/14/23 07/15/23 07/16/23 23:59 23:59 23:59 Intake Total 100 / 100 Balance 100 / 100 Lab / Micro Data 07/16/23 05:37 07/15/23 23:00 Labs: Laboratory Results - last 24 hr 07/15/23 23:00: WBC 10.7, RBC 4.41, Hgb 12.9, Hct 37.9, MCV 85.9, MCH 29.3, MCHC 34.0, RDW Std Deviation 41.9, RDW Coeff of Vignesh 13.5, Plt Count 410, MPV 9.9, Immature Gran % (Auto) 0.200, Neut % (Auto) 47.9, Lymph % (Auto) 37.5, [place] % (Auto) 12.7 H, Eos % (Auto) 1.1, Baso % (Auto) 0.6, Absolute Neuts (auto) 5.1, Absolute Lymphs (auto) 4.00, Nucleated RBC % 0, Sodium 138, Potassium 3.4 L, Chloride 107, Carbon Dioxide 25.0, Anion Gap 6, BUN 7, Creatinine 0.79, Estim Creat Clear Calc 77.52, Est GFR (MDRD) Af Amer 103, Est GFR (MDRD) Non-Af 85, BUN/Creatinine Ratio 8.8 L, Glucose 97, Calcium 9.2, Total Bilirubin 0.30, AST 29, ALT 29, Alkaline Phosphatase 66, Total Protein 7.1, Albumin 3.6, Globulin 3.5, Albumin/Globulin Ratio 1.0 07/16/23 05:37: WBC 9.0, RBC 4.24, Hgb 12.2, Hct 37.0, MCV 87.3, MCH 28.8, MCHC 33.0, RDW Std Deviation 44.6 H, RDW Coeff of Vignesh 14.1, Plt Count 370, MPV 10.2, Immature Gran % (Auto) 0.100, Neut % (Auto) 44.8 L, Lymph % (Auto) 41.2 H, [place] % (Auto) 11.8 H, Eos % (Auto) 1.7, Baso % (Auto) 0.4, Absolute Neuts (auto) 4.0, Absolute Lymphs (auto) 3.70, Nucleated RBC % 0 Assessment & Plan Assessment/Plan (1) Benzodiazepine withdrawal: (2) Admitted to substance misuse detoxification center: (3) Hypokalemia: (4) Polysubstance abuse: PLAN: Plan Benzodiazepine abuse with acute benzodiazepine withdrawal -Currently on Ativan taper will transition to a phenobarbital taper -Continue supportive medications for symptom management -180 consultation for discharge planning Hypokalemia -Potassium was 3.4 on admission -Repeat potassium from this morning is pending will replace if still low Polysubstance abuse -Patient admits to using multiple prescription medications that she has bought off the street plus cocaine -Highly recommend cessation -Detox for the above Bipolar disorder -Continue home medications BuSpar, Cymbalta, and Lamictal ADHD -Restart dextroamphetamine-amphetamine on discharge Tobacco abuse -Recommend cessation -Nicotine patch available DVT prophylaxis -Low risk -Recommend early and frequent ambulation CODE STATUS -Full code
[2023-07-16 07:06] LABS: ALB/GLOB Ratio 0.9 RATIO (0.9-2.4); AST(SGOT) 24 U/L (15-37); Alanine Aminotransfer ALT/SGPT 26 U/L (13-56); Albumin, Serum 3.1 g/dL (3.2-5.0); Alkaline Phosphatase 65 U/L (45-117); Anion Gap 4 (5-15); BUN 7 mg/dL (7-18); BUN/Creat Ratio 8.2 RATIO (10-20); Bilirubin, Direct 0.12 mg/dL (0.00-0.30); Calcium,Total 8.8 mg/dL (8.5-10.1); Chloride 107 mmol/L (98-107); Creatinine, Serum 0.85 mg/dL (0.55-1.02); EST Glomerular Filtration Rate 78 mL/min (>60); Est Glom Filt Rate - Afr Amer 95 mL/min (>60); Estimated Creatinine Clearance 75.21 ml/min; Globulin 3.4 g/dL (2.2-4.2); Glucose 100 mg/dL (74-106); Potassium 3.3 mmol/L (3.5-5.1); Protein, Total 6.5 g/dL (6.4-8.2); Sodium Level 139 mmol/L (136-145)
--- NOTE | 2023-07-16 08:13 | ADDICTION ---
This quality analyst/technical writer reviewed clients chart. She is a 43 year old female who was admitted 07/15 for [facility] detox. This quality analyst/technical writer attempted to meet with client. She is sleeping in bed. Client unable to stay awake, briefly wakes up, immediately falls back to sleep. Client does agree with this quality analyst/technical writer returning this afternoon for AoD assessment and treatment recommendations.
[2023-07-16] MEDS: Folic Acid 1 MG Tablet PO (08:59)
[2023-07-16] MEDS: Thiamine Hydrochloride 100 MG Tablet PO (08:59)
[2023-07-16] MEDS: Potassium Chloride Oral Tablet 20 MEQ 40 MEQ PO (09:03)
[2023-07-16] MEDS: DULoxetine Hcl 60 MG Capsule PO (09:04)
[2023-07-16] MEDS: lamoTRIgine 100 MG Tablet PO (09:04)
[2023-07-16] MEDS: Phenobarbital 32.4 MG Tablet 64.8 MG PO ×4 (09:07→20:57)
[2023-07-16 09:14] VITALS: BP 96/73; PULSE 98; RESP 16; TEMP 36.6; O2SAT 96
[2023-07-16 12:24] VITALS: BP 104/69; PULSE 100; RESP 18; TEMP 36.9; O2SAT 98
[2023-07-16] MEDS: busPIRone 15 MG TABLET PO ×2 (14:53→20:58)
--- NOTE | 2023-07-16 16:13 | ADDICTION ---
This internal communications writer attempted to meet with client for AoD assessment and treatment planning. Client is lying in bed, eyes closed. She refuses to participate, stating she is tired. Peer Support (Laura Chairez) attempted to meet with client, she refused peer support. This internal communications writer provided education on the importance of treatment planning. Client rolled over in bed and stated later. Charge nurse notified. This internal communications writer will attempt to meet with client 07/17/23.
[2023-07-16 17:11] VITALS: BP 100/65; PULSE 109; RESP 16; TEMP 36.6; O2SAT 98
[2023-07-16 20:55] VITALS: BP 109/64; PULSE 102; RESP 18; TEMP 36.4; O2SAT 96
[2023-07-17] MEDS: Phenobarbital 32.4 MG Tablet 64.8 MG PO ×6 (00:10→20:24)
[2023-07-17 04:45] VITALS: BP 111/69; PULSE 91; RESP 18; TEMP 36.6; O2SAT 99
[2023-07-17] MEDS: busPIRone 15 MG TABLET PO ×3 (04:56→21:57)
[2023-07-17 08:56] VITALS: BP 93/61; PULSE 96; RESP 16; TEMP 36.6; O2SAT 98
[2023-07-17] MEDS: Thiamine Hydrochloride 100 MG Tablet PO (09:05)
[2023-07-17] MEDS: Folic Acid 1 MG Tablet PO (09:05)
[2023-07-17] MEDS: DULoxetine Hcl 60 MG Capsule PO (09:05)
[2023-07-17] MEDS: lamoTRIgine 100 MG Tablet PO (09:06)
--- NOTE | 2023-07-17 09:50 | PN.HOSP_ITS ---
Reason for Visit Reason for Visit: Benzodiazepine withdrawal Subjective Subjective No specific issues. Patient states she is not having any marked withdrawal sy mptoms at this time. Feels that she may be ready for discharge tomorrow. Will continue to monitor clinically and if remains stable we will plan on discharge in the next 24 hours. Awaiting 180 to reevaluate her as she was unable to be evaluated yesterday for outpatient discharge planning. Objective Data Objective Data Vital Signs: Vital Signs Temp Pulse Resp BP Pulse Ox O2 Del Method 97.8 F 96 16 93/61 98 Room Air 07/17/23 08:56 07/17/23 08:56 07/17/23 08:56 07/17/23 08:56 07/17/23 08:56 07/17/23 08:56 Oxygen Delivery Method Room Air Weight: 73.8 kg Body Mass Index (BMI) 27.9 Intake & Output: Intake and Output for Last 24 Hours 07/15/23 07/16/23 07/17/23 23:59 23:59 23:59 Intake Total 460 / 1260 1050 / 1050 Balance 460 / 1260 1050 / 1050 Lab / Micro Data 07/16/23 05:37 07/16/23 05:37 Physical Exam Const alert and oriented x3 HEENT normocephalic, head/scalp atraumatic and moist oral mucous membranes Neuro oriented x3 Psych affect normal Psych Narrative: Eye contact is good, patient is pleasant and interacts appropriately Mood & Affect: anxious Assessment & Plan Assessment/Plan (1) Benzodiazepine withdrawal: (2) Admitted to substance misuse detoxification center: (3) Hypokalemia: (4) Polysubstance abuse: PLAN: Plan Benzodiazepine abuse with acute benzodiazepine withdrawal -Continue phenobarbital taper -Continue supportive medications for symptom management -180 consultation pending as patient refused yesterday Hypokalemia -Resolved Polysubstance abuse -Patient admits to using multiple prescription medications that she has bought off the street plus cocaine -Highly recommend cessation -Detox for the above Bipolar disorder -Continue home medications BuSpar, Cymbalta, and Lamictal ADHD -Restart dextroamphetamine-amphetamine on discharge Tobacco abuse -Recommend cessation -Nicotine patch available DVT prophylaxis -Low risk -Recommend early and frequent ambulation CODE STATUS -Full code Disposition: -Anticipate discharge in the next 24 hours Charges/Coding Visit Charges Inpatient E&M: 77722 Subs Hosp L1
--- NOTE | 2023-07-17 11:54 | ADDICTION ---
This nurse met with client at this time. Client is more alert and awake after not being able to stay awake 07/16/23. Client admits she has no memory of this telegraphic typewriter mechanic attempting to meet with her. Client is a 43 year old female who has 3 children, 2 reside with her. She reports a 10 year h/o BZO (Xanax), Adderall, methamphetamine, Cocaine use. She shared her dog is prescribed Xanax, however she typically will use her dog's medication. 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 She recently broke up with her fiance, she reports a sober support in her family. She has been involved in AA previously and completed outpatient treatment at [facility] about 1 year ago. Client is willing to re-engage in outpatient treatment. She has been given information for walk-in assessment 07/19/23. Client appears to have insight to the severity of her addiction and the negative consequences. She is tearful at times, feels she has not been present for her children. Willing to make changes.
[2023-07-17 16:12] VITALS: BP 106/62; PULSE 91; RESP 16; TEMP 36.7; O2SAT 97
[2023-07-17 20:31] VITALS: BP 100/64; PULSE 81; RESP 18; TEMP 36.7; O2SAT 94
[2023-07-17] MEDS: Mupirocin Ointment 22gm Tube 1 APPLIC TOPICAL (21:57)
[2023-07-17] MEDS: traZODone 100 MG Tablet PO (22:01)
[2023-07-18] MEDS: Phenobarbital 32.4 MG Tablet 64.8 MG PO ×4 (01:07→12:52)
[2023-07-18 02:30] VITALS: BP 101/71; PULSE 81; RESP 16; TEMP 36.6; O2SAT 98
[2023-07-18] MEDS: busPIRone 15 MG TABLET PO (05:13)
[2023-07-18 06:51] VITALS: BP 102/65; PULSE 97; RESP 16; TEMP 36.6; O2SAT 98
--- NOTE | 2023-07-18 09:04 | PCM.DC.SUM ---
Providers Date of Admission: 07/16/23 Date of Discharge: 07/18/23 Primary Care Physician: Dr. Edward Whiteside MD Reason For Visit: BENZADIAZEPINE WITHDRAWAL Diagnosis Discharge Diagnosis (1) Benzodiazepine withdrawal: Status: Acute Code(s): F13.939 - Sedative, hypnotic or anxiolytic use, unspecified with withdrawal, unspecified (2) Admitted to substance misuse detoxification center: Status: Acute Code(s): Z78.9 - Other specified health status (3) Hypokalemia: Status: Acute Code(s): E87.6 - Hypokalemia (4) Polysubstance abuse: Status: Acute Code(s): F19.10 - Other psychoactive substance abuse, uncomplicated Medications at Discharge Home Medications duloxetine 20 mg capsule,delayed release 60 mg PO DAILY depression/anxiety 09/30/16 trazodone 100 mg tablet 100 mg PO QHS sleep 07/26/20 buspirone 15 mg tablet 15 mg PO TID depression 12/28/21 ibuprofen 800 mg tablet 600 mg PO Q8H PRN PRN Pain 12/28/21 hydrocortisone acetate 25 mg rectal suppository (Anucort-HC) 25 mg SC BID #12 ea 01/03/22 dextroamphetamine-amphetamine 30 mg tablet 30 mg PO DAILY 07/15/23 lamotrigine 100 mg tablet 100 mg PO DAILY 07/15/23 gabapentin 300 mg capsule 300 mg PO DAILY #24 caps 07/18/23 Hospital Course Operations None Procedures None Summary of Care Provided Minutes Spent on Discharge: 22 Hospital Course: Patient is a 43-year-old female who presents emergency department at [facility] late in the evening of 07/15/2023 seeking assistance in detox from benzodiazepines. She has had ongoing use of Xanax for several years and also has taken Adderall and methamphetamine. She reported she used cocaine last week. Upon presentation she was having a lot of anxiety and tremulousness of her extremities. She has multiple injuries all of her skin due to picking related to her withdrawal symptoms. She otherwise only has a history of bipolar disorder and is on medication for this chronically. She was admitted to the medical floor and started on an Ativan taper however I did switch this to phenobarb taper the following day. She was noted to be hypokalemic and her potassium was replaced and normalized. She had an overall uneventful withdrawal and was feeling quite well without any symptoms of withdrawal on the a.m. of 07/17/2023. Upon reevaluation this morning she continued to feel well and was anxious to go home. She did follow-up with 180 while she was hospitalized and plans on calling tomorrow 07/19/2023 to set up outpatient follow-up. I will send her home on a gabapentin taper and prescription was sent to the local pharmacy. I encouraged her to follow-up with her primary care physician as needed and as noted above, 180 tomorrow. 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 Physical Exam Const alert, oriented x3, no apparent distress, no limitations and well nourished General Appearance: cooperative, comfortable, well kempt and well developed Exam Limitations: no limitations Nutritional Appearance: overweight HEENT normocephalic, head/scalp atraumatic and moist oral mucous membranes HEENT Narrative: Mallampati 2, no thrush Resp normal respiratory effort, no retractions, no use of accessory muscles and clear to auscultation bilaterally Auscultation: Negative for rales, rhonchi or wheezes Cardio regular rate, regular rhythm, S1 normal heart sound, S2 normal heart sound, no murmurs, no rub and no gallops GI normal to inspection, nondistended, normoactive bowel sounds, soft to palpation and non-tender Extremity normal to inspection Neuro oriented x3, moves all extremities and no focal motor deficits Psych affect normal Psych Narrative: Eye contact is good, patient is pleasant and interacts appropriately Mood & Affect: anxious Weight / BMI Weight Weight: 73.8 kg Body Mass Index (BMI) 27.9 ABG / Lab / Microbiology Data 07/16/23 05:37 07/16/23 05:37 D/C Instructions Discharge Diet: No restrictions Discharge Activity: Return to Normal Activity Return to work on: 07/19/23 Meaningful Use Info Meaningful Use Diagnoses (Choose all that apply): None applicable Discharge Plan Admission Admit Date/Time: 07/16/23 00:04 Primary Reason for Your Visit: Benzodiazapine Detox Attending Provider: Kalpana Purcell Primary Care Provider: Edward Whiteside Consulting Providers: Yaa Mart Instructions Additional Instructions / Restrictions: 1. Please call 180 to schedule follow-up evaluation/appointment tomorrow morning 07/19/2023 Discharge Orders/Prescriptions Prescriptions: New gabapentin 300 mg capsule 300 mg PO DAILY Qty: 24 0RF Rx Instructions: 300 mg 3 times daily x 4 days, 300 mg twice daily x 4 days, 300 mg daily x 4 days then stop Continued duloxetine 20 MG capsule 60 mg PO DAILY trazodone 100 MG tablet 100 mg PO QHS buspirone 15 mg tablet 15 mg PO TID Patient Comments: TAKE 1 TABLET BY MOUTH THREE TIMES DAILY ibuprofen 800 mg Tablet 600 mg PO Q8H PRN PRN (Reason: Pain) hydrocortisone acetate [Anucort-HC] 25 mg suppository 25 mg SC BID Qty: 12 0RF lamotrigine 100 mg tablet 100 mg PO DAILY Patient Comments: Take 1 tablet by mouth once daily. dextroamphetamine-amphetamine 30 mg tablet 30 mg PO DAILY Referrals / Follow Up: Edward Whiteside MD [Primary Care Provider] - See Referral Note (as needed) Disposition Disposition (needs filled in before D/C Order can be placed): Home, Self Care Charges/Coding Visit Charges Inpatient E&M: 50497 Disch Hosp
[2023-07-18] MEDS: DULoxetine Hcl 60 MG Capsule PO (09:14)
[2023-07-18] MEDS: Thiamine Hydrochloride 100 MG Tablet PO (09:14)
[2023-07-18] MEDS: Folic Acid 1 MG Tablet PO (09:14)
[2023-07-18] MEDS: lamoTRIgine 100 MG Tablet PO (09:14)
[2023-07-18] MEDS: Mupirocin Ointment 22gm Tube 1 APPLIC TOPICAL (09:16)
[2023-07-18 09:23] VITALS: BP 107/66; PULSE 91; RESP 16; TEMP 36.6; O2SAT 98
[2023-07-18 12:58] VITALS: BP 112/72; PULSE 88; RESP 16; TEMP 36.6; O2SAT 97
== END 2023-07-18 13:00 | disposition home or self-care (01) | DRG 774 ==
LOC: ED 22:53 → MS3 07-16 00:11
PROVIDERS: Admitting Provider Internal Medicine; Emergency Provider Emergency Medicine; PCP Family Medicine; Visit Provider Internal Medicine
DX: F13.939 Sedative, hypnotic or anxiolytic use, unspecified with withdrawal, unspecified (principal); F14.90 Cocaine use, unspecified, uncomplicated; F31.9 Bipolar disorder, unspecified; E87.6 Hypokalemia; F17.210 Nicotine dependence, cigarettes, uncomplicated; F41.9 Anxiety disorder, unspecified; F90.9 Attention-deficit hyperactivity disorder, unspecified type; F42.4 Excoriation (skin-picking) disorder
CPT/HCPCS: 36415; 80048; 80053; 80076; 85025; 99283

== ENCOUNTER 2023-07-24 21:15 | Emergency (ER) | payer MEDICAID, SELFPAY ==
[2023-07-24 21:16] VITALS: BP 122/98; PULSE 112; RESP 15; TEMP 36.6; O2SAT 100; BMI 27.8
--- NOTE | 2023-07-24 21:35 | EKG12_ITS ---
Test Reason : CP Blood Pressure : / mmHG Vent. Rate : 109 BPM Atrial Rate : 109 BPM P-R Int : 138 ms QRS Dur : 082 ms QT Int : 332 ms P-R-T Axes : 053 058 062 degrees QTc Int : 447 ms Sinus tachycardia Otherwise normal ECG Confirmed by VIJAY DEL ROSARIO, JESÚS ([id number]), film and video editor NASRA MONDRAGON ([id number]) on 07/26/2023 10:09:08 AM Referred By: LILIAN Confirmed By:JESÚS LINARES MD
--- NOTE | 2023-07-24 21:36 | EX.ED.DYSGE1 ---
HPI History of Present Illness Chief Complaint: Chest Pain Detail of Chief Complaint: Heart racing, near syncope Informant: patient Onset/Context/Timing Onset: Today Narrative Narrative: Patient presents after episode of heart racing and near syncope that occurred about 45 minutes prior to arrival. She states she was doing laundry when she felt her heart started racing and she was short of breath. She felt as if she may pass out. She had some slight chest heaviness with this. She states symptoms are improved at this time but she is not completely back to baseline. She recently went through detox from benzos. Her trazodone and Cymbalta were also recently decreased. [facility] Medical History Anxiety Depressed bipolar I disorder Tobacco abuse Home Medications duloxetine 20 mg capsule,delayed release 60 mg PO DAILY depression/anxiety 09/30/16 [History Last Taken 01/03/22] trazodone 100 mg tablet 100 mg PO QHS sleep 07/26/20 [History Last Taken 01/02/22] buspirone 15 mg tablet 15 mg PO TID depression 12/28/21 [History Last Taken 01/03/22] ibuprofen 800 mg tablet 600 mg PO Q8H PRN PRN Pain 12/28/21 [History Last Taken Unknown] hydrocortisone acetate 25 mg rectal suppository (Anucort-HC) 25 mg AL BID #12 ea 01/03/22 [Rx Last Taken Unknown] dextroamphetamine-amphetamine 30 mg tablet 30 mg PO DAILY 07/15/23 [History Last Taken Unknown] lamotrigine 100 mg tablet 100 mg PO DAILY 07/15/23 [History Last Taken Unknown] gabapentin 300 mg capsule 300 mg PO DAILY #24 caps 07/18/23 [Rx Last Taken Unknown] Allergy/AdvReac Type Severity Reaction Status Date / Time No Known Allergies Allergy Verified 07/24/23 21:23 Surgical History Hx of section Social History Smoking Status: Current every day smoker tobacco type: cigarettes ROS ROS ED Constitutional Constitutional ED: Denies chills or fever(s) Eyes Eyes: Denies discharge from eye(s) ENT ENT ED: Denies discharge from eye(s), rhinorrhea or sore throat Cardiovascular Cardiovascular: Reports chest pain and racing heartbeat Respiratory/Chest Respiratory/Chest: Reports dyspnea; Denies cough Gastrointestinal Gastrointestinal: Denies abdominal pain, nausea or vomiting Genitourinary Genitourinary ED: Denies dysuria Musculoskeletal Musculoskeletal: Denies back pain or extremity pain Integumentary Denies Abrasions or rash Neurologic Neurologic: Denies headache(s) or weakness Psychiatric Psychiatric: Reports anxiety; Denies depression Allergic/Immunologic Allergic/Immunologic ED: Denies lip swelling or urticaria EXAM Physical Exam Const Vital Signs: 07/24/23 21:16 07/24/23 22:31 Temperature 97.8 F Temperature Source Oral Pulse Rate 112 H 113 H Respiratory Rate 15 22 H Blood Pressure 122/98 H 117/91 H Blood Pressure Mean 106 99 Pulse Ox 100 100 Oxygen Delivery Method Room Air Room Air Positive well nourished and well developed General Appearance ED: well developed HEENT Reports moist mucous membranes Eyes EOMs intact bilaterally Chest Wall inspection of chest normal and palpation of chest normal Resp normal respiratory effort and clear to auscultation bilaterally Cardio regular rhythm Rate: tachycardic GI non-tender Palpation: soft Extremity normal to inspection Neuro oriented x3 and no sensory deficits noted Motor Exam: strength 5/5 throughout Skin no rashes or lesions noted MDM MDM MDM Narrative Medical decision making narrative: Patient placed on monitoring analyst. IV line established. Labwork obtained to evaluate for leukocytosis, anemia, and electrolyte derangement. EKG obtained to evaluate for cardiac arrhythmia/ischemia. Chest x-ray obtained to evaluate for acute lung pathology, cardiac size, or mediastinal abnormality. History & Record Review Discussion w/independent historian: Patient and Significant other Additional record(s) reviewed:: Prior inpatient record, Prior ED visit and Prior labs Lab Data Attestation: I reviewed the patient's lab results. Labs: Laboratory Results - last 24 hr 07/24/23 21:23 WBC 10.8 RBC 4.98 Hgb 14.1 Hct 42.2 MCV 84.7 MCH 28.3 MCHC 33.4 RDW Std Deviation 41.9 RDW Coeff of Vignesh 13.5 Plt Count 465 H MPV 10.1 Immature Gran % (Auto) 0.200 Neut % (Auto) 52.8 Lymph % (Auto) 32.1 [place] % (Auto) 13.7 H Eos % (Auto) 0.6 Baso % (Auto) 0.6 Absolute Neuts (auto) 5.7 Absolute Lymphs (auto) 3.46 Nucleated RBC % 0 D-Dimer Quant (PE/DVT) < 0.27 L Sodium 138 Potassium 3.4 L Chloride 102 Carbon Dioxide 31.0 Anion Gap 5 BUN 9 Creatinine 1.12 H Estim Creat Clear Calc 57.08 Est GFR (MDRD) Af Amer 69 Est GFR (MDRD) Non-Af 57 L BUN/Creatinine Ratio 8.0 L Glucose 111 H Calcium 10.0 Troponin I High Sens 7 Radiography Chest X-Ray - ED: 1 View, Read by ED Physician, Normal, Heart, Lungs and Mediastinum Diagnostic Testing: Clinical Impression(s) from Imaging Studies Chest X-Ray 07/24/23 21:43 IMPRESSION: Chest with no acute disease. Electronically Signed: Garrett Galan MD at 22:51 EST , EKG Initial EKG: Attestation: I personally reviewed and interpreted this EKG as follows: Interpretation: Sinus Tachycardia (Sinus tachycardia at 109 with no acute ischemia) Treatment and Re-Evaluation :: CBC was normal white count at 10.8 with a hemoglobin of 14.1. Chemistry studies reveal slightly low potassium at 3.4. Creatinine is slightly bumped at 1.12. Troponin is normal at 7 and D-dimer is less than 0.27. Portable chest x-ray per my interpretation reveals no focal infiltrate. Radiology interpretation reviewed and agrees. EKG is sinus tachycardia with no acute ischemia. Normal intervals. On repeat evaluation patient resting comfortably. Heart rate remains slightly elevated at 107. Work-up discussed with her and she is more comfortable at this time. She will be discharged home with return instructions. Patient comfortable with the plan. Discharge Plan Triage Chief Complaint: Chest Pain ED Provider: Latricia Chacon Dx/Rx/DC Orders Clinical Impression: Atypical chest pain Instructions: ED Chest Pain, Uncertain Cause Prescriptions: No Action duloxetine 20 MG capsule 60 mg PO DAILY trazodone 100 MG tablet 100 mg PO QHS buspirone 15 mg tablet 15 mg PO TID Patient Comments: TAKE 1 TABLET BY MOUTH THREE TIMES DAILY ibuprofen 800 mg Tablet 600 mg PO Q8H PRN PRN (Reason: Pain) hydrocortisone acetate [Anucort-HC] 25 mg suppository 25 mg AL BID Qty: 12 0RF lamotrigine 100 mg tablet 100 mg PO DAILY Patient Comments: Take 1 tablet by mouth once daily. dextroamphetamine-amphetamine 30 mg tablet 30 mg PO DAILY gabapentin 300 mg capsule 300 mg PO DAILY Qty: 24 0RF Rx Instructions: 300 mg 3 times daily x 4 days, 300 mg twice daily x 4 days, 300 mg daily x 4 days then stop Primary Care Provider: Dari Ma Referrals: Dari Ma MD [Primary Care Provider] - 1 Week Disposition Disposition: Home, Self Care
--- NOTE | 2023-07-24 21:43 | RAD_ITS ---
INDICATION: chest pain EXAMINATION/TECHNIQUE: X-RAY - XR Chest 1 View COMPARISON: 06/05/2021 chest radiograph. Findings: Single frontal view of the chest. LUNG PARENCHYMA: No acute focal airspace disease or mass lesion. PLEURA: No pleural effusion. No pneumothorax. HEART/GREAT VESSELS: Cardiomediastinal silhouette is unremarkable. BONES: Osseous structures are unremarkable for age. RAD/Chest 1 View (Portable) IMPRESSION: Chest with no acute disease. Electronically Signed: Garrett Galan MD at 22:51 EST ,
[2023-07-24 21:44] LABS: Absolute Lymphocyte Count 3.46 X10^3/uL (0.83-4.51); Absolute Neutrophil Count 5.7 X10^3/uL (2.0-7.7); Basophil# 0.06 X10^3/uL; Basophil% 0.6 % (0-1); Eosinophil# 0.06 X10^3/uL; Eosinophils% 0.6 % (0-5); Hematocrit 42.2 % (37-47); Hemoglobin 14.1 g/dL (12.0-15.0); Lymphocyte # 3.46 X10^3/ul (0.83-4.51); Lymphocyte % 32.1 % (19-41); Mean Corp Hgb Conc 33.4 g/dL (32-36); Mean Corpuscular Hgb 28.3 pg (27.0-32.0); Mean Corpuscular Volume 84.7 fL (81-99); Mean Platelet Vol. 10.1 fl (6.2-12.0); Monocyte# 1.48 X10^3/uL; Monocyte% 13.7 % (0-10); NRBC Flagged by Analyzer 0 % (0-5); Neutrophil # 5.69 X10^3/uL (2.7-7.7); Neutrophil % 52.8 % (47-70); Platelet Count 465 K/mm3 (150-450); RBC Distribution Width CV 13.5 % (11.6-14.6); RBC Distribution Width SD 41.9 fl (35.1-43.9); Red Blood Count 4.98 M/mm3 (4.2-5.4); White Blood Count 10.8 K/mm3 (4.4-11.0)
[2023-07-24 22:02] LABS: Anion Gap 5 (5-15); BUN 9 mg/dL (7-18); Chloride 102 mmol/L (98-107); Creatinine, Serum 1.12 mg/dL (0.55-1.02); EST Glomerular Filtration Rate 57 mL/min (>60); Est Glom Filt Rate - Afr Amer 69 mL/min (>60); Estimated Creatinine Clearance 57.08 ml/min; Glucose 111 mg/dL (74-106); Potassium 3.4 mmol/L (3.5-5.1); Sodium Level 138 mmol/L (136-145); Troponin-I HS 7 pg/mL (3.0-54.0)
[2023-07-24 22:03] LABS: D-Dimer Quantitative (DVT/PE) < 0.27 FEU/ug/m (0.27-0.49)
[2023-07-24] MEDS: 0.9% Normal Saline (1000mL) 1,000 ML 1000 ML IV (22:27)
[2023-07-24 22:31] VITALS: BP 117/91; PULSE 113; RESP 22; O2SAT 100
[2023-07-24 23:37] VITALS: BP 117/91; PULSE 109; RESP 20; O2SAT 100
== END 2023-07-24 23:41 | disposition home or self-care (01) ==
PROVIDERS: Emergency Provider Emergency Medicine; PCP Family Medicine; Visit Provider Emergency Medicine
DX: R07.89 Other chest pain (principal); F31.9 Bipolar disorder, unspecified; F17.210 Nicotine dependence, cigarettes, uncomplicated; F41.9 Anxiety disorder, unspecified; Z79.899 Other long term (current) drug therapy
CPT/HCPCS: 71045; 80048; 84484; 85025; 85379; 93005; 96360; 99284; J7030; A4216

== ENCOUNTER 2024-01-23 00:25 | Emergency (ER) | payer MEDICAID, SELFPAY ==
[2024-01-23 00:27] VITALS: BP 124/81; PULSE 100; RESP 16; TEMP 37.4; O2SAT 100; BMI 27.3
--- NOTE | 2024-01-23 00:53 | CT_ITS ---
INDICATION: headache EXAMINATION: CT BRAIN - CT Head or Brain W/O Contrast Injection TECHNIQUE: Multiple axial images were obtained of the head with sagittal and coronal reconstructed images. Individualized dose optimization techniques were used for this CT. IV contrast dosage and agent: None. COMPARISON: None. FINDINGS: BRAIN PARENCHYMA: No evidence of an acute infarct or intracranial hemorrhage. No evidence of a mass. CSF SPACES: The ventricles, sulci and subarachnoid cisterns are appropriate for age. CALVARIUM, SKULL BASE, PARANASAL SINUSES AND MASTOID AIR CELLS: No fracture. Mastoid air cells are clear. Visualized paranasal sinuses are unremarkable. ORBITS: The globes, extraocular muscles, optic nerves and retrobulbar fat are unremarkable. CT/Brain/Head without Contrast IMPRESSION: Normal noncontrast CT of the head. Electronically Signed: Edward Murrieta DO at 3:16 EDT ,
--- NOTE | 2024-01-23 00:53 | RAD_ITS ---
INDICATION: FEVER EXAMINATION/TECHNIQUE: X-RAY - XR Chest 1 View COMPARISON: 07/24/2023. FINDINGS: LINES/DEVICES: None. LUNGS: No consolidation or evidence of an effusion. No evidence of edema or a pneumothorax. MEDIASTINUM AND CARDIOVASCULAR STRUCTURES: Cardiac silhouette is normal in size and contour. Mediastinum is unremarkable. BONES AND SOFT TISSUES: No acute abnormality. RAD/Chest 1 View (Portable) IMPRESSION: No evidence of cardiopulmonary disease. Electronically Signed: Edward Murrieta DO at 1:55 EDT ,
[2024-01-23 00:57] VITALS: BP 137/75; PULSE 89; RESP 18; O2SAT 97
--- NOTE | 2024-01-23 00:58 | EDS_ITS ---
HPI History of Present Illness Chief Complaint: General Illness Informant: patient and spouse/S.O. Narrative Narrative: 43-year-old female presenting to the emergency department state coming down with something. For the past 24 hours the patient states she has had a right frontal headache. She notes a ingrown hair that she messed with to the right medial eyebrow. She denies any erythema surrounding the excoriated area. She states she had some swelling which improved with some ibuprofen. This evening she had an episode of vomiting. No diarrhea. She denies any significant light sensitivity. No peripheral rashes. No rhinorrhea cough dental pain. No cough shortness of breath. No urinary symptoms PFSH PFSH Medical History Polysubstance abuse Tobacco abuse Admitted to substance misuse detoxification center Depressed bipolar I disorder Anxiety Home Medications ?Medication ?Instructions ?Recorded ?Last Taken ?Type duloxetine 60 mg capsule,delayed 60 mg PO DAILY 01/23/24 Unknown History release Allergy/AdvReac Type Severity Reaction Status Date / Time No Known Allergies Allergy Verified 01/23/24 00:26 Surgical History Hx of section Social History Smoking Status: Current every day smoker tobacco type: cigarettes ROS ROS ED Constitutional Constitutional ED: Reports fever(s), subjective and sweats; Denies chills or weight loss Eyes Eyes: Denies blurry vision, change in vision or diplopia ENT ENT ED: Denies ear pain, rhinorrhea or sore throat Cardiovascular Cardiovascular: Denies chest pain, orthopnea, palpitations or racing heartbeat Respiratory/Chest Respiratory/Chest: Denies cough, dyspnea or orthopnea Gastrointestinal Gastrointestinal: Reports nausea and vomiting; Denies abdominal pain or diarrhea Genitourinary Genitourinary ED: Denies dysuria, hematuria or urinary frequency Musculoskeletal Musculoskeletal: Denies arthralgias or myalgias Integumentary Denies abscess or rash Neurologic Neurologic: Reports headache(s); Denies weakness Psychiatric Psychiatric: Denies anxiety, depression, suicidal ideation or suicidal thoughts Endocrine Endocrinology: Denies polydipsia, polyphagia or polyuria Allergic/Immunologic Allergic/Immunologic ED: Denies mouth swelling, tongue swelling or urticaria EXAM Physical Exam Const Vital Signs: 01/23/24 00:27 01/23/24 00:27 01/23/24 00:57 Temperature 99.3 F H Temperature Source Oral Pulse Rate 100 89 Respiratory Rate 16 18 Respiratory Pattern Normal Blood Pressure 124/81 H 137/75 H Blood Pressure Mean 95 95 Pulse Ox 100 97 Oxygen Delivery Method Room Air 01/23/24 02:41 Temperature 98.5 F Temperature Source Temporal Pulse Rate Respiratory Rate Respiratory Pattern Blood Pressure Blood Pressure Mean Pulse Ox Oxygen Delivery Method Positive well nourished and well developed General Appearance ED: well developed HEENT Reports normocephalic and moist mucous membranes HEENT Narrative: Medial right eyebrow demonstrates an excoriated half dime sized circular lesion. No surrounding erythema or swelling. The ocular exam appears within normal limits. Extraocular motions are painless and intact. Eyes PERRL and EOMs intact bilaterally Neck no lymphadenopathy, supple and no JVD Neck Narrative: No meningeal signs General: Negative for tenderness Resp normal respiratory effort and clear to auscultation bilaterally Cardio regular rate, regular rhythm and no murmurs Rate: tachycardic GI normal to inspection, nondistended, normoactive bowel sounds and non-tender Palpation: soft Back/Spine no CVA tenderness and normal ROM Extremity normal to inspection General Extremety ED: Negative for edema General Extremity: Negative for edema Neuro oriented x3 and CN's II-XII intact bilaterally Sensorium / Orientation: alert Motor Exam: strength 5/5 throughout Psych mental status grossly normal Mood & Affect: Negative for depressed or tearful Skin no rashes or lesions noted and no wounds MDM MDM MDM Narrative Medical decision making narrative: Differential diagnosis includes but not limited to viral syndrome periorbital cellulitis sinusitis meningitis sepsis UTI gastroenteritis influenza COVID-19 CT of the brain showed no acute findings. I doubt that this is meningitis. She has no photophobia. She moves her head easily. The headache is located in the right frontal region. White count is nonspecifically elevated 16.7 with 81.9 neutrophils. No bandemia. Patient is chronically hypokalemic. Today 3.2. I do not see an obvious reason for why the patient would be chronically low on potassium. Her lactic acid is normal. LFTs normal. Urinalysis is contaminated but no overt infection. RSV influenza and RSV swab was negative. Patient received Toradol Zofran and IV fluids. Heart rate is come down. She remains afebrile. This point difficult to say exactly what the patient is feeling ill from. I do not see evidence of periorbital cellulitis. Again I doubt meningitis. I will write for Zofran. Recommend fever control if needed oral hydration. Follow-up if not improving return if worsening or concerns History & Record Review Discussion w/independent historian: Patient Lab Data Attestation: I reviewed the patient's lab results. Labs: Laboratory Results - last 24 hr 01/23/24 01/23/24 01:05 02:20 WBC 16.7 H RBC 4.03 L Hgb 11.4 L Hct 35.2 L MCV 87.3 MCH 28.3 MCHC 32.4 RDW Std Deviation 40.8 RDW Coeff of Vignesh 12.8 Plt Count 346 MPV 9.7 Immature Gran % (Auto) 0.600 Neut % (Auto) 81.9 H Lymph % (Auto) 8.3 L [place] % (Auto) 8.8 Eos % (Auto) 0.1 Baso % (Auto) 0.3 Absolute Neuts (auto) 13.7 H Absolute Lymphs (auto) 1.38 Nucleated RBC % 0 Sodium 134 L Potassium 3.2 L Chloride 103 Carbon Dioxide 23.0 Anion Gap 8 BUN 13 Creatinine 0.66 Estim Creat Clear Calc 109.33 Est GFR (MDRD) Af Amer 125 Est GFR (MDRD) Non-Af 104 BUN/Creatinine Ratio 19.5 Glucose 109 H Lactic Acid 0.7 Calcium 8.7 Total Bilirubin 0.40 Direct Bilirubin 0.08 AST 50 H ALT 45 Alkaline Phosphatase 87 Total Protein 6.9 Albumin 3.1 L Globulin 3.8 Serum , Qual NEGATIVE Urine Color Straw Urine Clarity Clear Urine pH 7.0 Ur Specific [place] 1.005 Urine Protein Negative Urine Glucose (UA) Normal Urine Ketones Negative Urine Occult Blood 10 H Urine Nitrite Negative Urine Bilirubin Negative Urine Urobilinogen Normal Ur Leukocyte Esterase 100 H Urine RBC 5-10 SEEN Urine WBC 10-25 SEEN Ur Squamous Epith Cells 5-10 SEEN Urine Bacteria RARE Urine Mucus 0 SEEN Radiography Diagnostic Testing: Clinical Impression(s) from Imaging Studies Brain CT 01/23/24 00:53 IMPRESSION: Normal noncontrast CT of the head. Electronically Signed: Edward Murrieta DO at 3:16 EDT , Chest X-Ray 01/23/24 00:53 IMPRESSION: No evidence of cardiopulmonary disease. Electronically Signed: Edward Murrieta, at 1:55 EDT , Discharge Plan Triage Chief Complaint: General Illness ED Provider: Fawad Altamiarno Dx/Rx/DC Orders Clinical Impression: Vomiting, Headache, Leukocytosis, Chronic hypokalemia Instructions: ED Hypokalemia, ED Vomiting (Adult) Prescriptions: No Action duloxetine 60 mg capsule,delayed release(DR/EC) 60 mg PO DAILY Primary Care Provider: Dari Ma Referrals: Dari Ma MD [Primary Care Provider] - 3-5 Days if not improving Print Language: Togolese Disposition Disposition: Home, Self Care
[2024-01-23 01:20] LABS: Absolute Lymphocyte Count 1.38 X10^3/uL (0.83-4.51); Absolute Neutrophil Count 13.7 X10^3/uL (2.0-7.7); Basophil# 0.05 X10^3/uL; Basophil% 0.3 % (0-1); Eosinophil# 0.01 X10^3/uL; Eosinophils% 0.1 % (0-5); Hematocrit 35.2 % (37-47); Hemoglobin 11.4 g/dL (12.0-15.0); Lymphocyte # 1.38 X10^3/ul (0.83-4.51); Lymphocyte % 8.3 % (19-41); Mean Corp Hgb Conc 32.4 g/dL (32-36); Mean Corpuscular Hgb 28.3 pg (27.0-32.0); Mean Corpuscular Volume 87.3 fL (81-99); Mean Platelet Vol. 9.7 fl (6.2-12.0); Monocyte# 1.47 X10^3/uL; Monocyte% 8.8 % (0-10); NRBC Flagged by Analyzer 0 % (0-5); Neutrophil # 13.68 X10^3/uL (2.7-7.7); Neutrophil % 81.9 % (47-70); Platelet Count 346 K/mm3 (150-450); RBC Distribution Width CV 12.8 % (11.6-14.6); RBC Distribution Width SD 40.8 fl (35.1-43.9); Red Blood Count 4.03 M/mm3 (4.2-5.4); White Blood Count 16.7 K/mm3 (4.4-11.0)
[2024-01-23 01:34] LABS: AST(SGOT) 50 U/L (15-37); Alanine Aminotransfer ALT/SGPT 45 U/L (13-56); Albumin, Serum 3.1 g/dL (3.2-5.0); Alkaline Phosphatase 87 U/L (45-117); Anion Gap 8 (5-15); BUN 13 mg/dL (7-18); BUN/Creat Ratio 19.5 RATIO (10-20); Bilirubin, Direct 0.08 mg/dL (0.00-0.30); Calcium,Total 8.7 mg/dL (8.5-10.1); Chloride 103 mmol/L (98-107); Creatinine, Serum 0.66 mg/dL (0.55-1.02); EST Glomerular Filtration Rate 104 mL/min (>60); Est Glom Filt Rate - Afr Amer 125 mL/min (>60); Estimated Creatinine Clearance 109.33 ml/min; Globulin 3.8 g/dL (2.2-4.2); Glucose 109 mg/dL (74-106); Potassium 3.2 mmol/L (3.5-5.1); Protein, Total 6.9 g/dL (6.4-8.2); Sodium Level 134 mmol/L (136-145)
[2024-01-23 01:49] LABS: Internal QC Validated? YES +Cl - CLEAR BKGD
[2024-01-23 01:50] LABS: Pregnancy, Serum, hCG Quali. NEGATIVE Negative; Record Kit Lot#, Serum Preg. 735774
[2024-01-23 01:54] LABS: Lactic Acid 0.7 mmol/L (0.4-1.9)
[2024-01-23] MEDS: 0.9% Normal Saline (1000mL) 1,000 ML 1000 ML IV (01:56)
[2024-01-23] MEDS: Ketorolac 30 MG/ML Syringe IV (01:57)
[2024-01-23] MEDS: Ondansetron 4 MG/2 ML Vial IV (01:57)
[2024-01-23 02:26] LABS: Mucous, Urine 0 SEEN /hpf (<or=2+)
[2024-01-23 02:27] LABS: Color, Urine Straw (Yellow); Glucose, Dipstick Normal (Normal); Ketone-Dipstick Negative (Negative); Leukocyte Esterase-Dipstick 100 /ul (Negative); Nitrite-Dipstick Negative (Negative); Occult Blood-Urine 10 /ul (Negative); Protein-Dipstick Negative (Negative); Specific Gravity, Urine 1.005 (1.002-1.030); Urine Bilirubin Dipstick Negative (Negative); Urine Clarity Clear (Clear); Urine Urobilinogen Normal (Normal)
[2024-01-23 02:39] LABS: White Blood Cells 10-25 SEEN /hpf (0-5)
[2024-01-23 02:40] LABS: Bacteria RARE /hpf (None Seen); Red Blood Cells-Urine 5-10 SEEN /hpf (0-5); Squamous Epithelial Cells - UA 5-10 SEEN /hpf (5-10)
[2024-01-23 02:41] VITALS: TEMP 36.9
[2024-01-23 03:31] VITALS: BP 102/69; PULSE 68; RESP 16; TEMP 36.4; O2SAT 99
== END 2024-01-23 03:34 | disposition home or self-care (01) ==
PROVIDERS: Emergency Provider Emergency Medicine; PCP Family Medicine; Visit Provider Emergency Medicine
DX: R11.10 Vomiting, unspecified (principal); E87.6 Hypokalemia; F17.210 Nicotine dependence, cigarettes, uncomplicated; R51.9 Headache, unspecified; D72.829 Elevated white blood cell count, unspecified
CPT/HCPCS: 70450; 71045; 80048; 80076; 81001; 83605; 84703; 85025; 87631; 96361; 96374; 96375; 99283; J7030; A4216; J2405

== ENCOUNTER 2024-02-08 21:13 | Inpatient (IN) | payer MEDICAID, SELFPAY ==
[2024-02-08 21:14] VITALS: BP 116/86; PULSE 138; RESP 19; TEMP 37.1; O2SAT 98; BMI 27.3
--- NOTE | 2024-02-08 21:30 | CT_ITS ---
ACR Level 3 findings have been noted. An addendum which confirms receipt of the report will follow. EXAM: CT ABDOMEN AND PELVIS WITH INTRAVENOUS CONTRAST CLINICAL INDICATION: abdominal pain TECHNIQUE: Helically acquired images were obtained of the abdomen and pelvis with intravenous contrast. This CT exam was performed using one or more of the following dose reduction techniques: automated exposure control, adjustment of the mA and/or kV according to patient size, and/or use of iterative reconstruction technique. CONTRAST: IV 100mL [id number] COMPARISON: CT abdomen and pelvis, 01/30/2020 FINDINGS: LOWER THORAX: No significant abnormality. Lung bases are clear. No cardiomegaly. No significant pericardial effusion. ABDOMEN: LIVER: Low-attenuation foci within the liver adjacent to the falciform ligament indicating fatty infiltration. Hepatomegaly. GALLBLADDER AND BILE DUCTS: Pericholecystic edema and/or gallbladder wall thickening. No intra- or extrahepatic biliary ductal dilation. PANCREAS: No significant abnormality. No focal cystic or solid mass. SPLEEN: No significant abnormality. Normal size without focal cystic or solid mass. ADRENALS: No significant abnormality. No nodules. KIDNEYS AND URETERS: Expansile wedge-shaped areas of hypoattenuation extending throughout the bilateral kidneys with indistinct cortical margins of the bilateral kidneys suggesting multifocal pyelonephritis. The bilateral kidneys are enlarged. STOMACH AND BOWEL: No significant abnormality. No stomach or bowel distention. No focal inflammatory change. PELVIS: APPENDIX: There is a normal appendix in the right lower quadrant. BLADDER: No significant abnormality. REPRODUCTIVE: Normal as visualized. No mass. ABDOMEN and PELVIS: INTRAPERITONEAL SPACE: No significant abnormality. No ascites or other fluid collection. No free air. BONES/JOINTS: No significant abnormality. No suspicious lytic or blastic abnormality. SOFT TISSUES: Small fat-containing umbilical hernia. VASCULATURE: No significant abnormality. Abdominal aorta is non-dilated. LYMPH NODES: No significant abnormality. No enlarged lymph nodes. CT/Abdomen/Pelvis W IV Cont ONLY IMPRESSION: 1. Expansile wedge-shaped areas of hypoattenuation extending throughout the bilateral kidneys with indistinct cortical margins of the bilateral kidneys suggesting multifocal pyelonephritis. 2. Pericholecystic edema and/or gallbladder wall thickening. Correlate clinically. Consider right upper quadrant ultrasound. 3. Hepatomegaly. Small focal fatty infiltration of the liver near the falciform ligament. Electronically Signed: Christian Ibarra DO at 22:35 EDT ,
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
[2024-02-08] MEDS: 0.9% Normal Saline (500mL Bag) 500 ML 1000 ML IV (21:55)
[2024-02-08] MEDS: Ketorolac 30 MG/ML Syringe IV (21:57)
[2024-02-08 21:58] VITALS: BP 114/68; PULSE 132; RESP 14; TEMP 37.6; O2SAT 98
[2024-02-08 22:13] LABS: Bacteria 0 SEEN /hpf (None Seen); Mucous, Urine 0 SEEN /hpf (<or=2+); Red Blood Cells-Urine 0 SEEN /hpf (0-5); Squamous Epithelial Cells - UA 0 SEEN /hpf (5-10)
[2024-02-08 22:17] LABS: Absolute Lymphocyte Count 1.85 X10^3/uL (0.83-4.51); Absolute Neutrophil Count 27.8 X10^3/uL (2.0-7.7); Basophil# 0.06 X10^3/uL; Basophil% 0.2 % (0-1); Eosinophil# 0.04 X10^3/uL; Eosinophils% 0.1 % (0-5); Hemoglobin 7.8 g/dL (12.0-15.0); Lymphocyte # 1.85 X10^3/ul (0.83-4.51); Lymphocyte % 5.8 % (19-41); Mean Corp Hgb Conc 31.2 g/dL (32-36); Mean Corpuscular Hgb 27.9 pg (27.0-32.0); Mean Corpuscular Volume 89.3 fL (81-99); Mean Platelet Vol. 8.8 fl (6.2-12.0); Monocyte# 1.73 X10^3/uL; Monocyte% 5.4 % (0-10); NRBC Flagged by Analyzer 0 % (0-5); Neutrophil # 27.84 X10^3/uL (2.7-7.7); Neutrophil % 87.3 % (47-70); POSITIVE COUNT YES; POSITIVE DIFFERENTIAL YES; RBC Distribution Width CV 13.5 % (11.6-14.6); RBC Distribution Width SD 44.3 fl (35.1-43.9)
[2024-02-08 22:22] LABS: White Blood Count 31.9 K/mm3 (4.4-11.0)
[2024-02-08 22:23] LABS: Differential Indicated SCAN CRITERIA MET; Platelet Count 829 K/mm3 (150-450)
[2024-02-08 22:31] LABS: ALB/GLOB Ratio 0.5 RATIO (0.9-2.4); AST(SGOT) 16 U/L (15-37); Alanine Aminotransfer ALT/SGPT 18 U/L (13-56); Albumin, Serum 2.4 g/dL (3.2-5.0); Alkaline Phosphatase 151 U/L (45-117); Anion Gap 9 (5-15); BUN 13 mg/dL (7-18); BUN/Creat Ratio 13.3 RATIO (10-20); Calcium,Total 8.8 mg/dL (8.5-10.1); Chloride 103 mmol/L (98-107); Creatinine, Serum 0.98 mg/dL (0.55-1.02); EST Glomerular Filtration Rate 66 mL/min (>60); Est Glom Filt Rate - Afr Amer 80 mL/min (>60); Estimated Creatinine Clearance 72.84 ml/min; Globulin 4.5 g/dL (2.2-4.2); Glucose 106 mg/dL (74-106); Potassium 3.7 mmol/L (3.5-5.1); Protein, Total 6.9 g/dL (6.4-8.2); Sodium Level 135 mmol/L (136-145)
[2024-02-08 22:34] LABS: Alcohol, Blood (Medical)-Serum < 3.0 mg/dL
[2024-02-08 22:38] LABS: Lactic Acid 0.7 mmol/L (0.4-1.9)
[2024-02-08 22:44] VITALS: BP 99/65; PULSE 119; RESP 22; TEMP 37.6; O2SAT 95
[2024-02-08 22:46] LABS: Amphetamine Urine VISTA POSITIVE (<1000 ng/mL); Barbiturate Urine VISTA NEGATIVE (< 200 ng/mL); Benzodiazepine Urine VISTA NEGATIVE (< 200 ng/mL); Cocaine Urine VISTA POSITIVE (< 300 ng/mL); Ecstacy Urine VISTA NEGATIVE (< 500 ng/mL); Methadone Urine VISTA NEGATIVE (< 300 ng/mL); PCP Urine VISTA NEGATIVE (< 25 ng/mL); THC Urine VISTA NEGATIVE (< 50 ng/mL); Vista UDS pH Range 6
[2024-02-08 22:47] LABS: Anisocytosis RARE; Differential Comment SEE COMMENTS; Platelet Estimate MKD INC (ADEQ); Red Cell Morphology N CHROM NORMAL (NORM C&C)
[2024-02-08 22:48] LABS: Macrocytosis RARE
--- NOTE | 2024-02-08 23:06 | EX.ED.DYSGE1 ---
HPI History of Present Illness Chief Complaint: General Illness [facility] Medical History (Updated 02/09/24 @ 02:[address] Dante George DO) Polysubstance abuse Tobacco abuse Admitted to substance misuse detoxification center Depressed bipolar I disorder Anxiety Home Medications ?Medication ?Instructions ?Recorded ?Last Taken ?Type duloxetine 60 mg capsule,delayed 60 mg PO DAILY depressant 01/23/24 02/07/24 History release dextroamphetamine-amphetamine 30 1 tab PO DAILY PRN as needed 02/08/24 Unknown History mg tablet esomeprazole magnesium 20 mg 20 mg PO DAILY indigestion 02/08/24 Unknown History capsule,delayed release (Nexium) Allergy/AdvReac Type Severity Reaction Status Date / Time No Known Allergies Allergy Verified 02/08/24 21:17 Surgical History Hx of section Social History Smoking Status: Current every day smoker tobacco type: cigarettes EXAM Physical Exam Const Vital Signs: 02/08/24 21:14 02/08/24 21:58 02/08/24 22:02 Temperature 98.8 F 99.7 F H Temperature Source Temporal Oral Pulse Rate 138 H 132 H Respiratory Rate 19 H 14 Respiratory Effort Normal Non-Labored Respiratory Pattern Normal Blood Pressure 116/86 H 114/68 Blood Pressure Mean 96 83 Pulse Ox 98 98 Oxygen Delivery Method Room Air Room Air 02/08/24 22:44 02/08/24 23:14 02/08/24 23:47 Temperature 99.7 F H 98.9 F 98.9 F Temperature Source Oral Oral Pulse Rate 119 H 118 H 117 H Respiratory Rate 22 H 18 15 Respiratory Effort Respiratory Pattern Blood Pressure 99/65 95/61 95/61 Blood Pressure Mean 76 72 72 Pulse Ox 95 97 97 Oxygen Delivery Method Room Air Room Air MDM MDM MDM Narrative Medical decision making narrative: Interventions / MDM: Differential diagnosis: Cholecystitis, pyelonephritis, polysubstance use, sepsis, electrolyte abnormalities Diagnosis considered but do not suspect: Pneumoperitoneum however CT negative My EKG interpretation: N/A Imaging independently reviewed and interpreted by myself: CT scan abdomen pelvis: Gallbladder wall thickening with edema. Bilateral pyelonephritis. Also read by radiology. External documents reviewed: N/A Test considered but not ordered:N/A ED course: Le. Patient signed out to me with pending results. Patient reports 4-day history of epigastric abdominal pain worse with meals. 2-3 loose stools with meals. Nonbloody. Pain in the right upper quadrant starting yesterday. Fever 100 today. Reported seen couple weeks ago fever diagnosed with viral syndrome. Evaluation records from that nonspecific viral illness with 16,000 white count at that time. During exam she had right upper quadrant tenderness bilateral CVA tenderness. Reported was having some dysuria. With labs white count returned at 31.9 hemoglobin 7.8. Last hemoglobin was 11.4. I sent for Hemoccult however rectal exam had brown stools. Eventually this returned negative. Normal lactic acid at 0.7 normal liver enzymes. Alcohol negative toxicology positive for amphetamines and cocaine for which he admits to taking 36 hours ago. She denies any history of IV drug abuse. This was discussed with the patient as risks factors with change treatment may be altered, especially CT noting wedge-shaped hypodensities in the kidneys. She confirms no history of IV drug abuse. With findings of gallbladder wall thickening and edema with right upper quadrant pain I did speak with on-call surgeon Dr. Balderrama, with multiple issues he requests admission to medicine. Agrees with antibiotics n.p.o. at midnight and he will see in the morning. Eyes discussed with hospitalist, Dr. Parry. Discussed her findings. She is admitted to PCU for further management. Patient meeting SIRS criteria with tachycardia and leukocytosis has pyelonephritis and cholecystitis. Sepsis with a normal lactic acid. Blood pressure stable at this time. Re-evaluation: stable Disposition discussed with patient/family/significant other: Patient Case discussed with consulting clinician: General surgery, hospitalist This note was generated with [employer] dictation software. It may contain incorrect words, spelling, and punctuation that were not noted in checking the note before signing. Lab Data Attestation: I reviewed the patient's lab results. Labs: Laboratory Results - last 24 hr 02/08/24 02/08/24 02/08/24 22:03 22:06 22:30 WBC 31.9 H* RBC 2.80 L Hgb 7.8 L Hct 25.0 L MCV 89.3 MCH 27.9 MCHC 31.2 L RDW Std Deviation 44.3 H RDW Coeff of Vignesh 13.5 Plt Count 829 H* MPV 8.8 Immature Gran % (Auto) 1.200 H Neut % (Auto) 87.3 H Lymph % (Auto) 5.8 L [place] % (Auto) 5.4 Eos % (Auto) 0.1 Baso % (Auto) 0.2 Absolute Neuts (auto) 27.8 H Absolute Lymphs (auto) 1.85 Nucleated RBC % 0 Differential Comment SEE COMMENTS Diff Path Review May foll Platelet Estimate MKD INC RBC Morphology N CHROM Anisocytosis RARE Macrocytosis RARE Sodium 135 L Potassium 3.7 Chloride 103 Carbon Dioxide 23.0 Anion Gap 9 BUN 13 Creatinine 0.98 Estim Creat Clear Calc 72.84 Est GFR (MDRD) Af Amer 80 Est GFR (MDRD) Non-Af 66 BUN/Creatinine Ratio 13.3 Glucose 106 Lactic Acid 0.7 Calcium 8.8 Phosphorus 1.8 L Magnesium 1.8 Total Bilirubin 0.40 AST 16 ALT 18 Alkaline Phosphatase 151 H Total Protein 6.9 Albumin 2.4 L Globulin 4.5 H Albumin/Globulin Ratio 0.5 L Prealbumin 8.4 L TSH 0.36 Serum , Qual NEGATIVE Urine Color Yellow Urine Clarity Clear Urine pH 8.0 Ur Specific [place] 1.015 Urine Protein 15 H Urine Glucose (UA) Normal Urine Ketones Negative Urine Occult Blood 25 H Urine Nitrite Negative Urine Bilirubin Negative Urine Urobilinogen Normal Ur Leukocyte Esterase 25 H Urine RBC 0 SEEN Urine WBC 0-5 SEEN Ur Squamous Epith Cells 0 SEEN Urine Bacteria 0 SEEN Urine Mucus 0 SEEN Urine Opiates Screen NEGATIVE Urine Methadone Screen NEGATIVE Ur Barbiturates Screen NEGATIVE Ur Phencyclidine Scrn NEGATIVE Ur Amphetamines Screen POSITIVE H MDMA (Ecstasy) Screen NEGATIVE U Benzodiazepines Scrn NEGATIVE Urine Cocaine Screen POSITIVE H U Cannabinoids Screen NEGATIVE Ur Drug Screen Comment Ethyl Alcohol < 3.0 Radiography Diagnostic Testing: Clinical Impression(s) from Imaging Studies Abdomen/Pelvis CT 02/08/24 21:30 IMPRESSION: 1. Expansile wedge-shaped areas of hypoattenuation extending throughout the bilateral kidneys with indistinct cortical margins of the bilateral kidneys suggesting multifocal pyelonephritis. 2. Pericholecystic edema and/or gallbladder wall thickening. Correlate clinically. Consider right upper quadrant ultrasound. 3. Hepatomegaly. Small focal fatty infiltration of the liver near the falciform ligament. Electronically Signed: Christian Mariao, at 22:35 EDT , ADDENDUM: 02/08/24 2244 IMPRESSION: 1. Expansile wedge-shaped areas of hypoattenuation extending throughout the bilateral kidneys with indistinct cortical margins of the bilateral kidneys suggesting multifocal pyelonephritis. 2. Pericholecystic edema and/or gallbladder wall thickening. Correlate clinically. Consider right upper quadrant ultrasound. 3. Hepatomegaly. Small focal fatty infiltration of the liver near the falciform ligament. N.B. : Dante George MD, confirmed on 02/08/2024 22:37:24 (ET) that the healthcare facility has received the radiology report. Electronically Signed: Christian Dhillonmitesh at 22:35 EDT , Critical Care Time Critical Care Time: Yes Critical care time (excluding procedures): 30-74 minutes, Discussing w/Patient &/or Family/Flash Drier Operator, Discussing w/Consultants, Arranging Admission or Transfer, Performing Direct Patient Care at Bedside and - (30 minutes) Discharge Plan Dx/Rx/DC Orders Clinical Impression: Pyelonephritis, Acute cholecystitis, Polysubstance abuse, Sepsis, Anemia Disposition Disposition: Acute Care Hospital [facility] Discharge Date/Time: 02/09/24 00:26
[2024-02-08 23:14] VITALS: BP 95/61; PULSE 118; RESP 18; TEMP 37.2; O2SAT 97
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
[2024-02-08 23:30] LABS: Internal QC Validated? YES +Cl - CLEAR BKGD; Pregnancy, Serum, hCG Quali. NEGATIVE Negative
[2024-02-08 23:33] LABS: Color, Urine Yellow (Yellow); Glucose, Dipstick Normal (Normal); Ketone-Dipstick Negative (Negative); Leukocyte Esterase-Dipstick 25 /ul (Negative); Nitrite-Dipstick Negative (Negative); Occult Blood-Urine 25 /ul (Negative); Protein-Dipstick 15 mg/dl (Negative); Specific Gravity, Urine 1.015 (1.002-1.030); Urine Bilirubin Dipstick Negative (Negative); Urine Clarity Clear (Clear); Urine Urobilinogen Normal (Normal)
[2024-02-08 23:39] LABS: White Blood Cells 0-5 SEEN /hpf (0-5)
[2024-02-08] MEDS: 0.9% Normal Saline (1000mL) 1,000 ML 999 ML IV (23:44)
[2024-02-08] MEDS: Piperacil/Tazobactam 4.5 GM in 0.9% Normal Saline (100mL MB+) 100 ML IV (23:44)
[2024-02-08 23:47] VITALS: BP 95/61; PULSE 117; RESP 15; TEMP 37.2; O2SAT 97
[2024-02-09] VITALS (20 sets, daily range): BP systolic 96–139; BP diastolic 58–82; PULSE 88–122; RESP 14–20; TEMP 36.1–38.7; O2SAT 93–100; BMI 27.3
--- NOTE | 2024-02-09 00:12 | US_ITS ---
STUDY: ABDOMINAL ULTRASOUND - RIGHT UPPER QUADRANT REASON FOR VISIT: Female, 44 years old Suspected Acute Cholecystitis on CT. TECHNIQUE: Ultrasound evaluation of the right upper quadrant was performed with real-time and static still-scale imaging. TECHNICAL QUALITY: Adequate. COMPARISON: Comparison is made with prior CT scan of the abdomen and pelvis done earlier in the day. FINDINGS: Liver: The liver is enlarged and measures 20.2 cm. Echogenic appearance in the right lobe of the liver adjacent to the falciform ligament suggestive of possible focal fatty infiltration. The bile ducts are within normal limits. There is hepatic color flow. The direction of portal flow is hepatopetal. There is no demonstrated mass lesion. Gallbladder: Normal distended gallbladder. The gallbladder wall measures 3.5 mm. There is a positive sonographic Landry''s sign. There is pericholecystic fluid. There are no gallstones. Common Bile Duct (C.B.D.): The common bile duct measures 2.0 mm. Pancreas: Normal size of the head, body and tail of the pancreas. There is normal echogenicity of the pancreas. There is no demonstrated pancreatic mass or cyst. Right Kidney: Normal size of the right kidney. The right kidney measures 12.4 cm x 5.8 cm x 4.9 cm. Normal renal cortex. The right cortex measures 1.5 cm. Heterogeneous appearance of the right kidney suggestive of a multifocal pyelonephritis as seen on the recent CT scan. There is no right hydronephrosis. US/Gallbladder IMPRESSION: Gallbladder wall thickening with a trace amount of pericholecystic fluid although no gallstones are seen. Cholecystitis should BE ruled out. Heterogeneous appearance of the right kidney as described in keeping with the findings on the CT scan. Questionable focal area of fatty infiltration adjacent to the falciform ligament. Hepatomegaly. Electronically Signed: Rory Hoffman MD at 10:48 EDT ,
[2024-02-09 00:50] LABS: Thyroid Stim Hormone (TSH) 0.36 uIU/mL (0.358-3.74)
[2024-02-09 01:05] LABS: Magnesium 1.8 mg/dL (1.6-2.6); Phosphorus 1.8 mg/dL (2.5-4.9); Prealbumin 8.4 mg/dL (20.0-40.0)
[2024-02-09] MEDS: 0.9% Normal Saline (1000mL) 1,000 ML 999 ML IV ×2 (01:07→02:20)
[2024-02-09] MEDS: Vancomycin HCl 2,000 MG in 0.9% Normal Saline (500mL Bag) 500 ML 250 MG IV (01:13)
[2024-02-09] MEDS: Morphine 2 MG/ML Syringe IV ×4 (02:19→21:57)
[2024-02-09] MEDS: 0.9% Saline Lock 10 ML Syringe IV ×5 (02:20→16:07)
--- NOTE | 2024-02-09 02:35 | PCM.RX.CS ---
Consult Antibiotic Management Pharmacy has been consulted to manage selected antibiotic: Vancomycin Type of Intervention Type of Consult: New start Labs Labs: Sodium 135 mmol/L (136-145) L 02/08/24 22:03 Potassium 3.7 mmol/L (3.5-5.1) 02/08/24 22:03 Chloride 103 mmol/L (98-107) 02/08/24 22:03 Carbon Dioxide 23.0 mmol/L (21.0-32.0) 02/08/24 22:03 Anion Gap 9 (5-15) 02/08/24 22:03 BUN 13 mg/dL (7-18) 02/08/24 22:03 Creatinine 0.98 mg/dL (0.55-1.02) 02/08/24 22:03 Est GFR (MDRD) Af Amer 80 mL/min (>60) 02/08/24 22:03 Est GFR (MDRD) Non-Af 66 mL/min (>60) 02/08/24 22:03 BUN/Creatinine Ratio 13.3 RATIO (10-20) 02/08/24 22:03 Glucose 106 mg/dL (74-106) 02/08/24 22:03 Microbiology Microbiology: Microbiology 02/08/24 23:05 Stool Stool Occult Blood (DARLIN) - Final 02/08/24 21:47 Mucosa - Nose SARS-CoV-2, Influenza & RSV (PCR) - Final Dosing Weight Weight used for dosin.4 kg Estimated Creatinine Clearance Estimated Creatinine Clearance: 72.8 Goal Trough Goal Trough: 15-20 mcg/mL Pharmacy Plan for Drug Dosing Pharmacy Plan for Drug Dosing: Pharmacy Service will continue to monitor and adjust dosing as required. 2GM LOADING DOSE, 1GM Q12H TROUGH PRIOR TO 4TH DOSE Follow-Up Labs Follow-Up Labs: Trough: Vancomycin Date/Time Labs Ordered Labs to be done on [date and time ordered]: 02/09 @ 2598
[2024-02-09] MEDS: Ondansetron 4 MG/2 ML Vial IV ×2 (02:43→11:01)
[2024-02-09] MEDS: Piperacil/Tazobactam 3.375 GM in 0.9% Normal Saline (50mL MB+) 50 ML IV ×3 (04:53→23:02)
[2024-02-09] MEDS: Potassium Phosphate 40 MM in 0.9% Normal Saline (500mL Bag) 500 ML 62.5 MM IV (04:53)
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
--- NOTE | 2024-02-09 07:48 | EX.PCM.CON.S ---
Assessment & Plan Assessment/Plan (1) Right upper quadrant pain: PLAN: The patient is having right upper quadrant pain but she is also having a constellation of other symptoms. The CT scan did show some thickening of the gallbladder wall with pericholecystic fluid but the gallbladder is very small and nondistended. I do not believe this is the cause of the problem. Patient also has markedly elevated white count. Patient has been started on antibiotics. Upon questioning the patient about all of the rest of her symptoms I did ask about tics and she said that she has had more ticks on her in the last few months that she has had her entire life. She denies rash but I will order a Lyme disease panel. Patient is also complaining of headache and neck pain. Ultrasound of the gallbladder is pending and a HIDA can be ordered as well to rule out acute cholecystitis if the ultrasound suggest cholecystitis. Garrett Balderrama MD Pager: [facility] [address] [place] [address], [address] [place] [address] Office: HPI Consult Data Date of Consult: 02/09/24 HPI Narrative HPI Narrative: KENY AKINS, is a 44 F who presents with several issues. The patient reports that she has been having diarrhea and upper abdominal pain. She was sick 2 weeks ago and was in the hospital with what she was told was a viral illness. She said she got better and then she got worse again over the last few days. She has a history of methamphetamine and cocaine use. She says she has not used in 4 days. She reports that she is having right upper quadrant pain and nausea. She is also having joint pain and muscle pain and neck pain and headache and she is also having night sweats and fevers. She has not noted any blood in her stool or bloody vomiting. She has not had a period in several weeks. [facility] Medical History (Updated 02/09/24 @ 07:[address] Kalpana Purcell DO) Polysubstance abuse Tobacco abuse Admitted to substance misuse detoxification center Depressed bipolar I disorder Anxiety Home Medications ?Medication ?Instructions ?Recorded ?Last Taken ?Type duloxetine 60 mg capsule,delayed 60 mg PO DAILY depressant 01/23/24 02/07/24 History release dextroamphetamine-amphetamine 30 1 tab PO DAILY PRN as needed 02/08/24 Unknown History mg tablet esomeprazole magnesium 20 mg 20 mg PO DAILY indigestion 02/08/24 Unknown History capsule,delayed release (Nexium) Allergy/AdvReac Type Severity Reaction Status Date / Time No Known Allergies Allergy Verified 02/08/24 21:17 Surgical History Hx of section Social History Smoking Status: Current every day smoker tobacco type: cigarettes ROS Constitutional Constitutional: Reports anorexia, chills, fatigue, fever(s) and headache(s) Eyes Eyes: Denies blurry vision ENT HEENT: Reports neck pain; Denies abnormal hearing Cardiovascular Cardiovascular: Denies chest pain Respiratory/Chest Respiratory/Chest: Denies cough, dyspnea or wheezing Gastrointestinal Gastrointestinal: Reports abdominal pain, diarrhea and nausea; Denies vomiting Genitourinary Genitourinary: Denies change in urinary stream Musculoskeletal Musculoskeletal: Reports back pain, joint pain and numbness Integumentary Integumentary: Denies jaundice Neurologic Neurologic: Denies dizziness Psychiatric Psychiatric: Denies anxiety Endocrine Endocrinology: Denies flushing Hematologic/Lymphatic Hematologic/Lymphatic: Denies easy bleeding Physical Exam Const alert and oriented x3 HEENT normocephalic Resp normal respiratory effort Cardio Rate: regular rate Rhythm: regular rhythm GI soft to palpation and non-tender Lab / Micro Data 02/08/24 22:03 02/08/24 22:03 Labs: Laboratory Results - last 24 hr 02/08/24 22:03: WBC 31.9 H*, RBC 2.80 L, Hgb 7.8 L, Hct 25.0 L, MCV 89.3, MCH 27.9, MCHC 31.2 L, RDW Std Deviation 44.3 H, RDW Coeff of Vignesh 13.5, Plt Count 829 H*, MPV 8.8, Immature Gran % (Auto) 1.200 H, Neut % (Auto) 87.3 H, Lymph % (Auto) 5.8 L, Wilson % (Auto) 5.4, Eos % (Auto) 0.1, Baso % (Auto) 0.2, Absolute Neuts (auto) 27.8 H, Absolute Lymphs (auto) 1.85, Nucleated RBC % 0, Differential Comment SEE COMMENTS, Diff Path Review May foll, Platelet Estimate MKD INC, RBC Morphology N CHROM, Anisocytosis RARE, Macrocytosis RARE, Sodium 135 L, Potassium 3.7, Chloride 103, Carbon Dioxide 23.0, Anion Gap 9, BUN 13, Creatinine 0.98, Estim Creat Clear Calc 72.84, Est GFR (MDRD) Af Amer 80, Est GFR (MDRD) Non-Af 66, BUN/Creatinine Ratio 13.3, Glucose 106, Lactic Acid 0.7, Calcium 8.8, Phosphorus 1.8 L, Magnesium 1.8, Total Bilirubin 0.40, AST 16, ALT 18, Alkaline Phosphatase 151 H, Total Protein 6.9, Albumin 2.4 L, Globulin 4.5 H, Albumin/Globulin Ratio 0.5 L, Prealbumin 8.4 L, TSH 0.36, Ethyl Alcohol < 3.0 02/08/24 22:06: Urine Color Yellow, Urine Clarity Clear, Urine pH 8.0, Ur Specific [place] 1.015, Urine Protein 15 H, Urine Glucose (UA) Normal, Urine Ketones Negative, Urine Occult Blood 25 H, Urine Nitrite Negative, Urine Bilirubin Negative, Urine Urobilinogen Normal, Ur Leukocyte Esterase 25 H, Urine RBC 0 SEEN, Urine WBC 0-5 SEEN, Ur Squamous Epith Cells 0 SEEN, Urine Bacteria 0 SEEN, Urine Mucus 0 SEEN, Urine Opiates Screen NEGATIVE, Urine Methadone Screen NEGATIVE, Ur Barbiturates Screen NEGATIVE, Ur Phencyclidine Scrn NEGATIVE, Ur Amphetamines Screen POSITIVE H, MDMA (Ecstasy) Screen NEGATIVE, U Benzodiazepines Scrn NEGATIVE, Urine Cocaine Screen POSITIVE H, U Cannabinoids Screen NEGATIVE, Ur Drug Screen Comment 02/08/24 22:30: Serum , Qual NEGATIVE 02/09/24 05:52: Blood Type A POSITIVE, Antibody Screen NEGATIVE Micro: Microbiology 02/08/24 23:05 Stool Stool Occult Blood (DARLIN) - Final 02/08/24 21:47 Mucosa - Nose SARS-CoV-2, Influenza & RSV (PCR) - Final Imaging Radiology Impression Abdomen/Pelvis CT 02/08/24 21:30 IMPRESSION: 1. Expansile wedge-shaped areas of hypoattenuation extending throughout the bilateral kidneys with indistinct cortical margins of the bilateral kidneys suggesting multifocal pyelonephritis. 2. Pericholecystic edema and/or gallbladder wall thickening. Correlate clinically. Consider right upper quadrant ultrasound. 3. Hepatomegaly. Small focal fatty infiltration of the liver near the falciform ligament. Electronically Signed: Christian Ibarra DO at 22:35 EDT , ADDENDUM: 02/08/24 [id number] IMPRESSION: 1. Expansile wedge-shaped areas of hypoattenuation extending throughout the bilateral kidneys with indistinct cortical margins of the bilateral kidneys suggesting multifocal pyelonephritis. 2. Pericholecystic edema and/or gallbladder wall thickening. Correlate clinically. Consider right upper quadrant ultrasound. 3. Hepatomegaly. Small focal fatty infiltration of the liver near the falciform ligament. N.B. : Dante George MD, confirmed on 02/08/2024 22:37:24 (ET) that the healthcare facility has received the radiology report. Electronically Signed: Christian Ibarra DO at 22:35 EDT ,
[2024-02-09 08:30] LABS: Absolute Lymphocyte Count 2.78 X10^3/uL (0.83-4.51); Absolute Neutrophil Count 18.4 X10^3/uL (2.0-7.7); Basophil# 0.05 X10^3/uL; Basophil% 0.2 % (0-1); Eosinophil# 0.07 X10^3/uL; Eosinophils% 0.3 % (0-5); Hemoglobin 6.4 g/dL (12.0-15.0); Lymphocyte # 2.78 X10^3/ul (0.83-4.51); Lymphocyte % 12.2 % (19-41); Mean Corp Hgb Conc 30.5 g/dL (32-36); Mean Corpuscular Hgb 27.8 pg (27.0-32.0); Mean Corpuscular Volume 91.3 fL (81-99); Mean Platelet Vol. 9.2 fl (6.2-12.0); Monocyte# 1.39 X10^3/uL; Monocyte% 6.1 % (0-10); NRBC Flagged by Analyzer 0 % (0-5); Neutrophil # 18.35 X10^3/uL (2.7-7.7); Neutrophil % 80.8 % (47-70); Platelet Count 597 K/mm3 (150-450); RBC Distribution Width CV 13.9 % (11.6-14.6); RBC Distribution Width SD 46.4 fl (35.1-43.9); RET-HE 22.3 pg (30-35); Reticulocyte Count 0.93 % (0.5-1.5); White Blood Count 22.7 K/mm3 (4.4-11.0)
[2024-02-09 08:39] LABS: Anion Gap 3 (5-15); BUN 9 mg/dL (7-18); BUN/Creat Ratio 12.9 RATIO (10-20); Calcium,Total 7.7 mg/dL (8.5-10.1); Chloride 112 mmol/L (98-107); EST Glomerular Filtration Rate 98 mL/min (>60); Est Glom Filt Rate - Afr Amer 119 mL/min (>60); Estimated Creatinine Clearance 102.11 ml/min; Ferritin 180 ng/mL (8-252); Glucose 87 mg/dL (74-106); Iron 10 ug/dL (50-170); Iron Binding Capacity,Total 181 ug/dL (250-450); PERCENT IRON SATURATION 5.5 % (15.0-55.0); Potassium 3.5 mmol/L (3.5-5.1); Sodium Level 138 mmol/L (136-145)
[2024-02-09] MEDS: Pantoprazole Sodium 40 MG in 0.9% Normal Saline (100mL MB+) 100 ML 330 MG IV ×2 (09:40→21:57)
[2024-02-09 10:06] LABS: Erythrocyte Sedimentation Rate 30 mm/hr (0-30)
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
[2024-02-09 10:42] LABS: CPK Total, Creatine Kinase 21 U/L (26-192)
--- NOTE | 2024-02-09 11:29 | NM_ITS ---
CLINICAL: 44-year-old female with history of right upper quadrant abdominal pain. RADIONUCLIDE HEPATOBILIARY SCINTIGRAPHY COMPARISON: Gallbladder ultrasound report 02/09/2024 FINDINGS: Following the intravenous administration of 5.4 mCi of 99m Tc Mebrofenin, hepatobiliary images reveal: 1. Relatively prompt and homogeneous radiopharmaceutical concentration is noted by a normal sized liver. No parenchymal defects are identified. 2. Gallbladder activity is identified at 10-11 minutes post radiopharmaceutical administration. 3. Small intestinal tract is observed at 27 minutes following tracer injection. 4. Washout of the radiopharmaceutical by the hepatic parenchyma appears qualitatively normal. NM/Hepatobilliary Imaging IMPRESSION: 1. NORMAL 99m Tc Mebrofenin hepatobiliary imaging examination. A. Visualization of the gallbladder within 60 minutes post radiopharmaceutical administration excludes acute cholecystitis with 97% certitude. (Prieto et al, Nucl Med [place] Lizbeth Press pg. 35, 1980). Electronically Signed: Deny Wade DO at 16:36 EDT ,
--- NOTE | 2024-02-09 13:40 | PCM.PRE.AN2 ---
ASA Classification* ASA Classification ASA Classification: 2 Assessment & Plan Anesthesia* Anesthesia Assessment Anesthesia Assessment: Discussed sedation and/or anesthesia options, risks, benefits, and alternatives with patient/parents/legal guardian/POA. Questions invited. The patient/parents/legal guardian/POA seems to understand and agrees to proceed with anesthesia plan. Reviewed the physical assessment, medical history, allergy history and patient home medications list prior to surgery/procedure/anesthetic and documented any changes. Performed airway and anesthesia risk assessments. Anesthesia Type Anesthesia Type: MAC Pre-Assessment Diagnosis/Proposed Procedure Planned Operative Procedure(s): egd Anesthesia History Anesthesia History - wax cutter: Anesthesia History - wax cutter Hx Hospitalization Any Problems With Anesthesia No 02/09/24 05:50 Cholinesterase deficiency No 02/09/24 05:50 You/Your Family Experience No 02/09/24 05:50 fever (hyperthermia) with Relationship Recent Exposure to Contagious No 02/09/24 05:50 Disease Does patient have nerve No 02/09/24 05:50 stimulator Patient instructed to have No 02/09/24 05:50 device shut off --Does patient have Pacemaker No 02/09/24 05:50 or ICD? When Was Last Pacemaker Check QUESTION #4 FULL TEXT: You/Your Family Experience fever (hyperthermia) with Anesthesia Last Oral Intake Last Oral intake: Last Oral Intake NPO since 00:00 02/09/24 05:50 Meds taken in AM with sips of water? Meds patient instructed to take am of surgery PONV PONV - wax cutter: PONV - wax cutter Female HX of Motion Sickness HX of N/V After Surgery Non-Smoker Duration of Surgery greater than 60 minutes Number of Risk Factors PONV Score Height & Weight Height & Weight: Anesthesia: Height & Weight Height 5 ft 4 in 02/09/24 12:03 Weight: 72.4 kg 02/09/24 12:03 Body Mass Index (BMI) 27.3 02/09/24 05:50 Respiratory Assessment Respiratory Assessment - wax cutter: Respiratory Tract Infection Hx - wax cutter Hx Respiratory Tract Infection No 02/09/24 05:50 STOP Sleep Apnea STOP Sleep Apnea - wax cutter: STOP Sleep Apnea - wax cutter Hx Hypertension No 02/09/24 00:45 Hx Sleep Apnea No 02/09/24 00:45 CPAP BIPAP Do you snore loudly (louder No 02/09/24 00:45 than talking or can be heard Do you often feel tired/ No 02/09/24 00:45 fatigued/ sleepy during daytime? Has anyone observed you stop No 02/09/24 00:45 breathing during sleep? STOP Results Negative 02/09/24 00:45 QUESTION #5 FULL TEXT : Do you snore loudly (louder than talking or can be heard through closed doors)? 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 Specify any problems Hx of Preganancy in last 3 No 02/09/24 00:45 Months Nurse Filling Out Transfusion [id number] 02/09/24 00:45 & Questions: Date: 02/09/24 02/09/24 00:45 Time: 00:47 02/09/24 00:45 Patient unable to answer at this time (ie. confused, unrespo /Reproduction History /Reproductive History - wax cutter: /Reproductive Hx- wax cutter Hx Now No 02/09/24 05:50 Gestational Age (in weeks): EDC: Hx Hx Para Hx Section SAB No 02/09/24 05:50 Active Medications Active Medications: Current Medications Generic Name Dose Route Start Last Admin Trade Name Freq PRN Reason Stop Dose Admin Piperacillin Sod/Tazobactam 50 mls @ 12.5 mls/hr 02/09/24 06:00 02/09/24 09:45 Sod 3.375 gm/ Sodium Chloride IV Infused Q8 DIVINA Infusion Vancomycin IV-PHARMACY TO DOSE 500 mls @ 250 mls/hr 02/09/24 00:43 1 each/ Sodium Chloride IV X1 PRN Rx to Dose Protocol Sodium Chloride 250 mls @ 15 mls/hr 02/09/24 00:54 IV .[id number] PRN Additional IVPB Infusion Sodium Chloride 250 mls @ 15 mls/hr 02/09/24 00:54 IV .[id number] PRN Saline Flush Vancomycin HCl 1,000 mg in 200 mls @ 200 mls/hr 02/09/24 13:30 Vancomycin IV Q12H DIVINA Pantoprazole Sodium 40 mg/ 110 mls @ 330 mls/hr 02/09/24 10:00 02/09/24 10:47 Sodium Chloride IV Infused Q12 DIVINA Infusion Ketorolac Tromethamine 15 mg 02/09/24 00:14 Ketorolac 15 Mg/Ml Vial IV 02/14/24 00:14 Q8H PRN PRN Pain 1-5/10 or Fever Morphine Sulfate 2 mg 02/09/24 00:43 02/09/24 11:01 Morphine 2 Mg/Ml Syringe IV 2 mg Q4H PRN PRN Administration Pain Score 6-10 Nicotine 14 mg 02/09/24 10:00 02/09/24 09:37 Nicotine 14 Mg Patch TD 14 mg DAILY DIVINA Administration Ondansetron HCl 4 mg 02/09/24 02:33 02/09/24 11:01 Ondansetron 4 Mg/2 Ml Vial IV 4 mg Q6H PRN PRN Administration NAUSEA Sodium Chloride 10 - 40 ml 02/09/24 00:54 02/09/24 11:01 0.9% Saline Lock 10 Ml Syringe IV 10 ml UD PRN Administration SALINE FLUSH Vancomycin Protocol 1 lab 02/10/24 11:00 Vancomycin Trough/Random Due 02/10/24 13:00 DAILY [facility] Anesthesia Focused Assessment* Temperature: 98.1 F Pulse Rate: 95 Blood Pressure: 107/75 Respiratory Rate: 18 Pulse Ox: 94 Airway Assessment Mouth opens: >3 cm Mallampati Score: II Focused Labs Anesthesia Preop lab: CBC WBC 15.5 K/mm3 (4.4-11.0) H 02/10/24 06:14 RBC 3.22 M/mm3 (4.2-5.4) L 02/10/24 06:14 Hgb 8.7 g/dL (12.0-15.0) L 02/10/24 06:14 Hct 28.2 % (37-47) L 02/10/24 06:14 Plt Count 781 K/mm3 (150-450) H* 02/10/24 06:14 CHEMISTRY Potassium 3.9 mmol/L (3.5-5.1) 02/10/24 06:14 Sodium 137 mmol/L (136-145) 02/10/24 06:14 Magnesium 2.0 mg/dL (1.6-2.6) 02/10/24 06:14 Phosphorus 3.3 mg/dL (2.5-4.9) 02/10/24 06:14 BUN 6 mg/dL (7-18) L 02/10/24 06:14 Creatinine 0.75 mg/dL (0.55-1.02) 02/10/24 06:14 Glucose 96 mg/dL (74-106) 02/10/24 06:14 TSH 0.36 uIU/mL (0.358-3.74) 02/08/24 22:03 COAG PT 15.8 SECONDS (11.7-14.9) H 02/10/24 06:14 Review of Systems (Anesthesia) ROS Narrative System reviewed and no additional complaints, except as documented. [facility] Medical History Polysubstance abuse Tobacco abuse Admitted to substance misuse detoxification center Depressed bipolar I disorder Anxiety Home Medications ?Medication ?Instructions ?Recorded ?Last Taken ?Type duloxetine 60 mg capsule,delayed 60 mg PO DAILY depressant 01/23/24 02/07/24 History release dextroamphetamine-amphetamine 30 1 tab PO DAILY PRN as needed 02/08/24 Unknown History mg tablet esomeprazole magnesium 20 mg 20 mg PO DAILY indigestion 02/08/24 Unknown History capsule,delayed release (Nexium) Allergy/AdvReac Type Severity Reaction Status Date / Time No Known Allergies Allergy Verified 02/08/24 21:17 Surgical History Hx of section Social History Smoking Status: Current every day smoker tobacco type: cigarettes
[2024-02-09 14:04] LABS: Pathologist Review Reviewed
[2024-02-09] MEDS: Vancomycin IV 1,000 MG/200 ML BAG 200 MG IV (14:34)
[2024-02-09 16:47] LABS: Rheumatoid Factor < 10.0 IU/mL (<15)
--- NOTE | 2024-02-09 18:33 | EX.PCM.CON.G ---
HPI Consult Data Date of Consult: 02/09/24 HPI Narrative Reason for Consultation: Abdominal pain and anemia HPI Narrative: KENY AKINS, is a 44-year-old patient reports 4-day history of epigastric abdominal pain worse with meals. 2-3 loose stools with meals. Nonbloody. Her pain in the right upper quadrant starting yesterday. She also had a fever 100 today. She reported seen couple weeks ago fever diagnosed with viral syndrome. Evaluation records from that nonspecific viral illness with 16,000 white count at that time. During exam she had right upper quadrant tenderness bilateral CVA tenderness. Reported was having some dysuria. With labs white count returned at 31.9 hemoglobin 6.8. Last hemoglobin was 12.4. I sent for Hemoccult however rectal exam had brown stools. Eventually this returned negative. Normal lactic acid at 0.7 normal liver enzymes. Alcohol negative toxicology positive for amphetamines and cocaine for which he admits to taking 36 hours ago. She denies any history of IV drug abuse. This was discussed with the patient as risks factors with change treatment may be altered, especially CT noting wedge-shaped hypodensities in the kidneys. She confirms no history of IV drug abuse. With findings of gallbladder wall thickening and edema with right upper quadrant pain I did speak with on-call surgeon Dr. Balderrama, with multiple issues he requests admission to medicine. Agrees with antibiotics n.p.o. at midnight and he will see in the morning. Eyes discussed with hospitalist, Dr. aPrry. Discussed her findings. She is admitted to PCU for further management. Patient meeting SIRS criteria with tachycardia and leukocytosis has pyelonephritis and cholecystitis. Sepsis with a normal lactic acid. Blood pressure stable at this time. FORMERLY [facility], [facility]–1983 Medical History (Updated 02/09/24 @ 07:[address] Kalpana Purcell, DO) Polysubstance abuse Tobacco abuse Admitted to substance misuse detoxification center Depressed bipolar I disorder Anxiety Home Medications ?Medication ?Instructions ?Recorded ?Last Taken ?Type duloxetine 60 mg capsule,delayed 60 mg PO DAILY depressant 01/23/24 02/07/24 History release dextroamphetamine-amphetamine 30 1 tab PO DAILY PRN as needed 02/08/24 Unknown History mg tablet esomeprazole magnesium 20 mg 20 mg PO DAILY indigestion 02/08/24 Unknown History capsule,delayed release (Nexium) Allergy/AdvReac Type Severity Reaction Status Date / Time No Known Allergies Allergy Verified 02/08/24 21:17 Surgical History Hx of section Social History Smoking Status: Current every day smoker tobacco type: cigarettes ROS Constitutional Constitutional: Reports anorexia, chills, fatigue, fever(s) and headache(s) Eyes Eyes: Denies blurry vision ENT HEENT: Reports neck pain; Denies abnormal hearing Cardiovascular Cardiovascular: Denies chest pain Respiratory/Chest Respiratory/Chest: Denies cough, dyspnea or wheezing Gastrointestinal Gastrointestinal: Reports abdominal pain, diarrhea and nausea; Denies vomiting Genitourinary Genitourinary: Denies change in urinary stream Musculoskeletal Musculoskeletal: Reports back pain, joint pain and numbness Integumentary Integumentary: Denies jaundice Neurologic Neurologic: Denies dizziness Psychiatric Psychiatric: Denies anxiety Endocrine Endocrinology: Denies flushing Hematologic/Lymphatic Hematologic/Lymphatic: Denies easy bleeding Physical Exam Const alert and oriented x3 HEENT normocephalic Resp normal respiratory effort Cardio Rate: regular rate Rhythm: regular rhythm GI soft to palpation and non-tender Medical Records Data Attestation: I reviewed the patient's medical records Lab / Micro Data Attestation: I reviewed the patient's lab results. 02/09/24 05:52 02/09/24 05:52 Labs: Laboratory Results - last 24 hr 02/08/24 22:03: WBC 31.9 H*, RBC 2.80 L, Hgb 7.8 L, Hct 25.0 L, MCV 89.3, MCH 27.9, MCHC 31.2 L, RDW Std Deviation 44.3 H, RDW Coeff of Vignesh 13.5, Plt Count 829 H*, MPV 8.8, Immature Gran % (Auto) 1.200 H, Neut % (Auto) 87.3 H, Lymph % (Auto) 5.8 L, [place] % (Auto) 5.4, Eos % (Auto) 0.1, Baso % (Auto) 0.2, Absolute Neuts (auto) 27.8 H, Absolute Lymphs (auto) 1.85, Nucleated RBC % 0, Differential Comment SEE COMMENTS, Diff Path Review Reviewed, Platelet Estimate MKD INC, RBC Morphology N CHROM, Anisocytosis RARE, Macrocytosis RARE, Sodium 135 L, Potassium 3.7, Chloride 103, Carbon Dioxide 23.0, Anion Gap 9, BUN 13, Creatinine 0.98, Estim Creat Clear Calc 72.84, Est GFR (MDRD) Af Amer 80, Est GFR (MDRD) Non-Af 66, BUN/Creatinine Ratio 13.3, Glucose 106, Lactic Acid 0.7, Calcium 8.8, Phosphorus 1.8 L, Magnesium 1.8, Total Bilirubin 0.40, AST 16, ALT 18, Alkaline Phosphatase 151 H, Total Protein 6.9, Albumin 2.4 L, Globulin 4.5 H, Albumin/Globulin Ratio 0.5 L, Prealbumin 8.4 L, TSH 0.36, Ethyl Alcohol < 3.0 02/08/24 22:06: Urine Color Yellow, Urine Clarity Clear, Urine pH 8.0, Ur Specific [place] 1.015, Urine Protein 15 H, Urine Glucose (UA) Normal, Urine Ketones Negative, Urine Occult Blood 25 H, Urine Nitrite Negative, Urine Bilirubin Negative, Urine Urobilinogen Normal, Ur Leukocyte Esterase 25 H, Urine RBC 0 SEEN, Urine WBC 0-5 SEEN, Ur Squamous Epith Cells 0 SEEN, Urine Bacteria 0 SEEN, Urine Mucus 0 SEEN, Urine Opiates Screen NEGATIVE, Urine Methadone Screen NEGATIVE, Ur Barbiturates Screen NEGATIVE, Ur Phencyclidine Scrn NEGATIVE, Ur Amphetamines Screen POSITIVE H, MDMA (Ecstasy) Screen NEGATIVE, U Benzodiazepines Scrn NEGATIVE, Urine Cocaine Screen POSITIVE H, U Cannabinoids Screen NEGATIVE, Ur Drug Screen Comment 02/08/24 22:30: Serum , Qual NEGATIVE 02/09/24 05:52: WBC 22.7 H, RBC 2.30 L, Hgb 6.4 L, Hct 21.0 L, MCV 91.3, MCH 27.8, MCHC 30.5 L, RDW Std Deviation 46.4 H, RDW Coeff of Vignesh 13.9, Plt Count 597 H, MPV 9.2, Immature Gran % (Auto) 0.400, Neut % (Auto) 80.8 H, Lymph % (Auto) 12.2 L, [place] % (Auto) 6.1, Eos % (Auto) 0.3, Baso % (Auto) 0.2, Absolute Neuts (auto) 18.4 H, Absolute Lymphs (auto) 2.78, Nucleated RBC % 0, ESR 30, Retic Count 0.93, Immature Retic Fraction 3.70, Retic Hgb Equivalent 22.3 L, Sodium 138, Potassium 3.5, Chloride 112 H, Carbon Dioxide 23.0, Anion Gap 3 L, BUN 9, Creatinine 0.70, Estim Creat Clear Calc 102.11, Est GFR (MDRD) Af Amer 119, Est GFR (MDRD) Non-Af 98, BUN/Creatinine Ratio 12.9, Glucose 87, Calcium 7.7 L, Iron 10 L, TIBC 181 L, Iron Saturation 5.5 L, Ferritin 180, Total Creatine Kinase 21 L, C-React Prot Ext Range 276.00 H, Rheumatoid Factor < 10.0, Blood Type A POSITIVE, Antibody Screen NEGATIVE, Crossmatch See Detail Micro: Microbiology 02/08/24 23:05 Stool Stool Occult Blood (DARLIN) - Final 02/08/24 21:47 Mucosa - Nose SARS-CoV-2, Influenza & RSV (PCR) - Final Imaging Radiology Impression Abdomen/Pelvis CT 02/08/24 21:30 IMPRESSION: 1. Expansile wedge-shaped areas of hypoattenuation extending throughout the bilateral kidneys with indistinct cortical margins of the bilateral kidneys suggesting multifocal pyelonephritis. 2. Pericholecystic edema and/or gallbladder wall thickening. Correlate clinically. Consider right upper quadrant ultrasound. 3. Hepatomegaly. Small focal fatty infiltration of the liver near the falciform ligament. Electronically Signed: Christian Ibarra DO at 22:35 EDT , ADDENDUM: 02/08/24 4802 IMPRESSION: 1. Expansile wedge-shaped areas of hypoattenuation extending throughout the bilateral kidneys with indistinct cortical margins of the bilateral kidneys suggesting multifocal pyelonephritis. 2. Pericholecystic edema and/or gallbladder wall thickening. Correlate clinically. Consider right upper quadrant ultrasound. 3. Hepatomegaly. Small focal fatty infiltration of the liver near the falciform ligament. N.B. : Dante George MD, confirmed on 02/08/2024 22:37:24 (ET) that the healthcare facility has received the radiology report. Electronically Signed: Christian Ibarra DO at 22:35 EDT , Gallbladder Ultrasound 02/09/24 00:12 IMPRESSION: Gallbladder wall thickening with a trace amount of pericholecystic fluid although no gallstones are seen. Cholecystitis should BE ruled out. Heterogeneous appearance of the right kidney as described in keeping with the findings on the CT scan. Questionable focal area of fatty infiltration adjacent to the falciform ligament. Hepatomegaly. Electronically Signed: Rory Hoffman MD at 10:48 EDT , Hepatobiliary Scan Nuclear Medicine 02/09/24 11:29 IMPRESSION: 1. NORMAL 99m Tc Mebrofenin hepatobiliary imaging examination. A. Visualization of the gallbladder within 60 minutes post radiopharmaceutical administration excludes acute cholecystitis with 97% certitude. (Michelle, Nucl Med [place]beth Press pg. 35, 1981). Electronically Signed: Deny Wade DO at 16:36 EDT , Assessment & Plan Assessment/Plan (1) Sepsis: QUALIFIERS: Sepsis type: sepsis due to unspecified organism Sepsis acute organ dysfunction status: without acute organ dysfunction Qualified Code(s): A41.9 - Sepsis, unspecified organism (2) Acute cholecystitis: (3) Pyelonephritis: (4) Hypophosphatemia: (5) Polysubstance abuse: (6) Tobacco abuse: (7) Anemia: QUALIFIERS: Anemia type: unspecified type Qualified Code(s): D64.9 - Anemia, unspecified PLAN: Plan 44-year-old with recent complaints of fever, chills, abdominal right upper quadrant pain and epigastric pain. There is CT evidence of expansile wedge-shaped areas of hypoattenuation extending throughout both kidneys with indistinct cortical margins of the bilateral kidneys suggesting multifocal pyelonephritis with clinical signs of Sepsis with severe leukocytosis of 31.9 K with Left shift along with thrombocytosis of 829 K (likely due to acute infection). There is also a anemia of she should undergo evaluation of upper GI tract. Her hemoglobin is 6.8 g/dL present on admission along with fever of 99.7 ?F and sinus tachycardia at 119 bpm -she was started on broad-spectrum antibiotics with IV Zosyn and IV Vancomycin and await culture and sensitivity data. Give IV Toradol prn for [id number] (level 1-5/10) pain or fever. Give Morphine IV prn for severe (level 6-10/10) pain. She will undergo endoscopy tomorrow. N.p.o. past midnight. She was explained alternatives, risk, benefits including outstanding bleeding, infection, sepsis, perforation, need for emergent urgent . She have an ASA of 3. . Charges/Coding Visit Charges Inpatient E&M: 44331 Init Hosp L3
--- NOTE | 2024-02-09 19:04 | CT_ITS ---
INDICATION: renal infarction EXAMINATION: CTA CHEST, ABDOMEN AND PELVIS WITH CONTRAST - TECHNIQUE: A CTA of the chest, abdomen, and pelvis is obtained with sagittal and coronal reconstructed MIP views. Three-dimensional surface rendered sequence of the thoracic and abdominal aorta was obtained. A radiation dose optimization technique was used for this scan. mL of Isovue-[id number]. Oral contrast: None. COMPARISON: None. FINDINGS: CT CHEST: THORACIC AORTA: No atheromatous disease, no aneurysmal changes or dissection. ABDOMINAL AORTA: No aneurysm or dissection. No significant atheromatous disease. The iliac arteries are unremarkable. LUNGS: Tiny bilateral pleural effusions and compressive atelectasis of the lower lobes.. MEDIASTINUM: The thyroid gland is normal. No mediastinal or hilar adenopathy. HEART: Heart is normal size. No pericardial effusion. No CAD. CT ABDOMEN AND PELVIS: LIVER: The liver enhances homogeneously. No masses identified. GALLBLADDER: The CBD is normal. Contracted thick-walled gallbladder without calcified stones likely physiologic. SPLEEN: Normal. PANCREAS: No masses or inflammation. ADRENAL GLANDS: Normal. KIDNEYS AND URETERS: There is multifocal decreased enhancement of the renal cortex bilaterally which may be consistent with multiple cortical infarct although multifocal inflammatory renal lobar nephronia may have similar appearance.. Clinical correlation is recommended There are normal size and shape. No hydronephrosis or nephrolithiasis. No renal masses or cysts. STOMACH: Normal. SMALL BOWEL: Mild nonspecific ileus. MESENTERY: No mesenteric inflammation. No ascites. COLON: No significant diverticulosis, masses or inflammation. Mild ileus with diffuse fecal retention in the colon.. There is a large fatty ileocecal valve. APPENDIX: The appendix is visualized and normal. IVC: Normal. RETROPERITONEUM: No retroperitoneal lymphadenopathy. PELVIC STRUCTURES: Normal bladder. Small left ovarian or paraovarian cyst. SOFT TISSUES ABDOMEN: The anterior abdominal wall is normal. SOFT TISSUE CHEST: The extrathoracic soft tissues are normal. BONES: Minor degenerative changes of the thoracolumbar spine No fractures or significant degenerative disease. CT/CTA Chst, Abd, Pel W and/or WO IMPRESSION: Multifocal diminished cortical enhancement of both kidneys which may be consistent with multiple cortical infarcts or inflammatory multifocal lobar nephronia. Clinical correlation recommended Normal contrast-enhanced CT of the chest. Normal contrast-enhanced CT of the abdomen and pelvis. Electronically Signed: Edward Tejeda MD at 20:28 EDT ,
[2024-02-09] MEDS: Ketorolac 15 MG/ML Vial IV (19:47)
--- NOTE | 2024-02-09 20:38 | ECHOD_ITS ---
Reason For Study: SEPSIS Procedure This was a 2D Doppler, Color Flow transthoracic echocardiogram. Exam performed portable in patient room. Left Ventricle Normal LV size. The estimated ejection fraction is 60 %. No evidence for diastolic dysfunction. No regional wall motion abnormalities noted. Right Ventricle Normal RV size. Normal systolic function. Atria The left and right atria are normal. No doppler evidence for ASD. Bubble contrast study negative for right to left interatrial shunt. Mitral Valve There is no mitral valve stenosis. Trivial mitral valve insufficiency. Tricuspid Valve There is no tricuspid stenosis. Trivial tricuspid valve insufficiency. Pulmonary artery systolic pressure is 25 mmHg. Aortic Valve Trisinus/trileaflet aortic valve. There is no aortic stenosis. No aortic valve insufficiency. Pulmonic Valve There is no pulmonic valvular stenosis. No pulmonic valve insufficiency. Great Vessels Normal aortic root. Pericardium/Pleural No pericardial effusion. Medication Performed a rapid injection of agitated mix of 9 cc saline and 1cc air to assess for atrial septal defect. MMode/2D Measurements & Calculations LVIDd: 4.3 cm IVSd: 1.3 cm LVOT diam: 1.9 cm LVIDs: 2.5 cm LVPWd: 0.92 cm RVDd: 3.8 cm FS: 42.5 % LVOT area: 3.0 cm2 Ao root diam: 3.3 cm LAV(MOD-bp): 56.6 ml LVAd ap4: 26.1 cm2 LAV(MOD-bp) Indexed: 31.9 ml/m2 LVLd ap4: 7.5 cm LAV(MOD-sp2): 67.6 ml EDV(MOD-sp4): 74.7 ml LAV(MOD-sp4): 47.9 ml EDV(sp4-el): 77.5 ml LVAs ap4: 13.8 cm2 LVLs ap4: 6.2 cm ESV(MOD-sp4): 26.5 ml ESV(sp4-el): 26.2 ml EF(MOD-sp4): 64.5 % EF(sp4-el): 66.2 % LVAd ap2: 27.9 cm2 SV(MOD-sp4): 48.2 ml SV(MOD-sp2): 52.0 ml LVLd ap2: 8.1 cm EDV(MOD-sp2): 80.2 ml EDV(sp2-el): 81.6 ml LVAs ap2: 14.6 cm2 LVLs ap2: 6.2 cm ESV(MOD-sp2): 28.2 ml ESV(sp2-el): 29.2 ml EF(MOD-sp2): 64.8 % SV(sp4-el): 51.3 ml LA dimension(2D): 3.8 cm LA A4 area: 17.9 cm2 RA A4 area: 12.4 cm2 TAPSE: 2.1 cm Time Measurements MV dec time: 0.15 sec Doppler Measurements & Calculations MV E max gallito: 77.0 cm/sec Lat Peak E' Gallito: 12.4 cm/sec Med Peak E' Gallito: 8.4 cm/sec MV A max gallito: 98.7 cm/sec E/E' lat: 6.2 E/E' med: 9.2 MV E/A: 0.78 Ao V2 max: 152.8 cm/sec LV V1 max: 131.9 cm/sec MV dec slope: 500.3 cm/sec2 Ao max P.3 mmHg LV V1 max P.0 mmHg Ao V2 mean: 108.6 cm/sec LV V1 mean P.0 mmHg Ao mean P.4 mmHg LV V1 mean: 94.1 cm/sec Ao V2 VTI: 31.0 cm LV V1 VTI: 25.4 cm AV (velocity ratio): 0.82 JUAN F(I,D): 2.4 cm2 JUAN F(V,D): 2.6 cm2 SV(LVOT): 75.2 ml PA V2 max: 80.6 cm/sec TR max gallito: 221.7 cm/sec PA max PG (full): 0.97 mmHg TR max P.7 mmHg ECHO/Echo Complete Interpretation Summary The estimated ejection fraction is 60 %. No evidence for diastolic dysfunction. Trivial mitral valve insufficiency. Ordering Physician: Kalpana Purcell Referring Physician: Dari Ma M.D. Performed By: Mimi Arambula RDCS and Student
[2024-02-09] MEDS: DULoxetine Hcl 60 MG Capsule PO (23:02)
[2024-02-10] VITALS (11 sets, daily range): BP systolic 103–117; BP diastolic 65–74; PULSE 83–100; RESP 16–18; TEMP 36.2–37.2; O2SAT 94–98; BMI 27.3
--- NOTE | 2024-02-10 | GASB_PTH ---
PATIENT: KENY AKINS LOC: [facility] U#:[id number] AGE/SX: 44/F ROOM: [facility] RE02/09/[address]: Dr. Kalpana Purcell, : 1980 BED: 1 DIS: 02/11/2024 SPEC #: [id number] RECD: 02/10/24 12:14 STATUS: JOSE REZunilda #: [id number] KEKE: 02/10/24 00:[address]: Arcadio Greene DEPT: SURGICAL PATHOLOGY RECD BY: Brando Bateman ENTERED: 02/10/24 12:15 SP TYPE: Gastric Bx OTHR DR: MD Dr. Dari Castillo MD Dr. David de Lorenzo, DO Dr. Kathryn Lee, DO Tissues: A - Duodenum, NOS B - Gastric mucous membrane Procedures: Surgery Specimen Level IV Comments: @ Ordering doctor for SUIV edited from to @ by LOIS at 02/10/24 1243 @ Submitting doctor edited from to @ by LOIS at 02/10/24 1243 HEADER OPERATION: EGD with biopsy PRE-OP DIAGNOSIS: Anemia TISSUE SUBMITTED: A- Duodenum biopsy, B- Gastric antrum biopsy MICROSCOPIC DIAGNOSIS A. Duodenum, biopsy: Balaji's gland hyperplasia. B. Gastric antrum, biopsy: Mild chronic gastritis. See comment. LUIS FELIPE/ 02/11/2024 COMMENT B. The results of immunohistochemistry for Helicobacter pylori will be reported separately ([id number]). MICROSCOPIC DESCRIPTION Slides are reviewed. GROSS DESCRIPTION A. Received in fixative is one container labeled with the patient's name and designated Duodenum biopsy. The specimen consists of one irregular fragment of light mast soft tissue that measures 1.0 x 0.3 x 0.1 cm. The specimen is totally submitted in one cassette. B. Received in fixative is one container labeled with the patient's name and designated Gastric antrum biopsy. The specimen consists of two irregular fragments of light mast soft tissue that in aggregate measure 0.6 x 0.5 x 0.1 cm. The specimen is totally submitted in one cassette. LUIS FELIPE/ 02/10/2024 TC:3 CPT:72655s2
[2024-02-10] MEDS: Vancomycin IV 1,000 MG/200 ML BAG 200 MG IV ×3 (03:04→21:33)
[2024-02-10] MEDS: Piperacil/Tazobactam 3.375 GM in 0.9% Normal Saline (50mL MB+) 50 ML IV ×3 (05:34→21:01)
--- NOTE | 2024-02-10 05:55 | EKG12_ITS ---
Test Reason : AM EKG Blood Pressure : / mmHG Vent. Rate : 098 BPM Atrial Rate : 098 BPM P-R Int : 132 ms QRS Dur : 084 ms QT Int : 322 ms P-R-T Axes : 025 038 028 degrees QTc Int : 411 ms Normal sinus rhythm Normal ECG When compared with ECG of 24-JUL-2023 21:20, No significant change was found Confirmed by VIJAY DEL ROSARIO, JESÚS ([id number]), editorial specialist NASRA MONDRAGON ([id number]) on 02/10/2024 1:18:01 PM Referred By: JAMES Confirmed By:JESÚS LINARES MD
[2024-02-10 06:41] LABS: International Normalized Ratio 1.3; Prothrombin Time (Protime)PT. 15.8 SECONDS (11.7-14.9)
[2024-02-10 06:42] LABS: Absolute Lymphocyte Count 1.96 X10^3/uL (0.83-4.51); Absolute Neutrophil Count 11.8 X10^3/uL (2.0-7.7); Basophil# 0.05 X10^3/uL; Basophil% 0.3 % (0-1); Eosinophil# 0.05 X10^3/uL; Eosinophils% 0.3 % (0-5); Hematocrit 28.2 % (37-47); Hemoglobin 8.7 g/dL (12.0-15.0); Lymphocyte # 1.96 X10^3/ul (0.83-4.51); Lymphocyte % 12.7 % (19-41); Mean Corp Hgb Conc 30.9 g/dL (32-36); Mean Corpuscular Volume 87.6 fL (81-99); Mean Platelet Vol. 8.7 fl (6.2-12.0); Monocyte# 1.51 X10^3/uL; Monocyte% 9.8 % (0-10); NRBC Flagged by Analyzer 0 % (0-5); Neutrophil # 11.79 X10^3/uL (2.7-7.7); Neutrophil % 76.3 % (47-70); POSITIVE COUNT YES; POSITIVE DIFFERENTIAL YES; Partial Thromboplast Time 50.2 Seconds (24.1-36.2); RBC Distribution Width CV 15.2 % (11.6-14.6); RBC Distribution Width SD 48.8 fl (35.1-43.9); Red Blood Count 3.22 M/mm3 (4.2-5.4); White Blood Count 15.5 K/mm3 (4.4-11.0)
[2024-02-10 06:48] LABS: Differential Indicated SCAN CRITERIA MET; Platelet Count 781 K/mm3 (150-450)
[2024-02-10 07:10] LABS: ALB/GLOB Ratio 0.4 RATIO (0.9-2.4); AST(SGOT) 8 U/L (15-37); Alanine Aminotransfer ALT/SGPT 14 U/L (13-56); Alkaline Phosphatase 142 U/L (45-117); Anion Gap 7 (5-15); BUN 6 mg/dL (7-18); Calcium,Total 9.1 mg/dL (8.5-10.1); Chloride 105 mmol/L (98-107); Creatinine, Serum 0.75 mg/dL (0.55-1.02); EST Glomerular Filtration Rate 90 mL/min (>60); Est Glom Filt Rate - Afr Amer 108 mL/min (>60); Globulin 4.5 g/dL (2.2-4.2); Glucose 96 mg/dL (74-106); Phosphorus 3.3 mg/dL (2.5-4.9); Potassium 3.9 mmol/L (3.5-5.1); Protein, Total 6.5 g/dL (6.4-8.2); Sodium Level 137 mmol/L (136-145)
[2024-02-10 07:22] LABS: Amphetamine Urine VISTA POSITIVE (<1000 ng/mL); Barbiturate Urine VISTA NEGATIVE (< 200 ng/mL); Benzodiazepine Urine VISTA NEGATIVE (< 200 ng/mL); Cocaine Urine VISTA POSITIVE (< 300 ng/mL); Ecstacy Urine VISTA NEGATIVE (< 500 ng/mL); Methadone Urine VISTA NEGATIVE (< 300 ng/mL); PCP Urine VISTA NEGATIVE (< 25 ng/mL); THC Urine VISTA NEGATIVE (< 50 ng/mL); Vista UDS pH Range 5
[2024-02-10 07:37] LABS: Platelet Estimate MKD INC (ADEQ)
--- NOTE | 2024-02-10 08:45 | PCM.PN.SRG ---
Subjective Subjective Patient reports all of her muscle aches and abdominal pain are improved today. She says she feels hungry. Denies nausea or vomiting. Objective Data Objective Data Vital Signs: Vital Signs Temp Pulse Resp BP Pulse Ox O2 Del Method 98.2 F 83 16 106/66 97 Room Air 02/10/24 08:20 02/10/24 08:20 02/10/24 08:20 02/10/24 08:20 02/10/24 08:20 02/10/24 08:20 Oxygen Delivery Method Room Air Weight: 159 lb 9.835 oz Body Mass Index (BMI) 27.3 Intake & Output: Intake and Output for Last 24 Hours 02/08/24 02/09/24 02/10/24 23:59 23:59 23:59 Intake Total 500 / 500 5325.3333 / 5325.3333 250 / 250 Balance 500 / 500 5325.3333 / 5325.3333 250 / 250 Lab / Micro Data 02/10/24 06:14 02/10/24 06:14 Labs: Laboratory Results - last 24 hr 02/08/24 22:03: Diff Path Review Reviewed 02/09/24 05:52: ESR 30, Total Creatine Kinase 21 L, C-React Prot Ext Range 276.00 H, Rheumatoid Factor < 10.0, Crossmatch See Detail 02/10/24 06:14: WBC 15.5 H, RBC 3.22 L, Hgb 8.7 L, Hct 28.2 L, MCV 87.6, MCH 27.0, MCHC 30.9 L, RDW Std Deviation 48.8 H, RDW Coeff of Vignesh 15.2 H, Plt Count 781 H*, MPV 8.7, Immature Gran % (Auto) 0.600, Neut % (Auto) 76.3 H, Lymph % (Auto) 12.7 L, [place] % (Auto) 9.8, Eos % (Auto) 0.3, Baso % (Auto) 0.3, Absolute Neuts (auto) 11.8 H, Absolute Lymphs (auto) 1.96, Nucleated RBC % 0, Diff Path Review December, Platelet Estimate MKD INC, PT 15.8 H, INR 1.3, APTT 50.2 H, Sodium 137, Potassium 3.9, Chloride 105, Carbon Dioxide 25.0, Anion Gap 7, BUN 6 L, Creatinine 0.75, Estim Creat Clear Calc 95.30, Est GFR (MDRD) Af Amer 108, Est GFR (MDRD) Non-Af 90, BUN/Creatinine Ratio 8.0 L, Glucose 96, Calcium 9.1, Phosphorus 3.3, Magnesium 2.0, Total Bilirubin 0.60, AST 8 L, ALT 14, Alkaline Phosphatase 142 H, Total Protein 6.5, Albumin 2.0 L, Globulin 4.5 H, Albumin/Globulin Ratio 0.4 L 02/10/24 06:15: Urine Opiates Screen POSITIVE H, Urine Methadone Screen NEGATIVE, Ur Barbiturates Screen NEGATIVE, Ur Phencyclidine Scrn NEGATIVE, Ur Amphetamines Screen POSITIVE H, MDMA (Ecstasy) Screen NEGATIVE, U Benzodiazepines Scrn NEGATIVE, Urine Cocaine Screen POSITIVE H, U Cannabinoids Screen NEGATIVE, Ur Drug Screen Comment Micro: Microbiology 02/08/24 23:05 Stool Stool Occult Blood (DARLIN) - Final 02/08/24 21:47 Mucosa - Nose SARS-CoV-2, Influenza & RSV (PCR) - Final Radiography Diagnostic Testing: Radiology Impression Gallbladder Ultrasound 02/09/24 00:12 IMPRESSION: Gallbladder wall thickening with a trace amount of pericholecystic fluid although no gallstones are seen. Cholecystitis should BE ruled out. Heterogeneous appearance of the right kidney as described in keeping with the findings on the CT scan. Questionable focal area of fatty infiltration adjacent to the falciform ligament. Hepatomegaly. Electronically Signed: Rory Hoffman MD at 10:48 EDT , Hepatobiliary Scan Nuclear Medicine 02/09/24 11:29 IMPRESSION: 1. NORMAL 99m Tc Mebrofenin hepatobiliary imaging examination. A. Visualization of the gallbladder within 60 minutes post radiopharmaceutical administration excludes acute cholecystitis with 97% certitude. (Michelle, Nucl Med Linnette Lizbeth Press pg. 35, 1981). Electronically Signed: Deny Wade DO at 16:36 EDT , Chest/Abdomen/Pelvis CTA 02/09/24 19:04 IMPRESSION: Multifocal diminished cortical enhancement of both kidneys which may be consistent with multiple cortical infarcts or inflammatory multifocal lobar nephronia. Clinical correlation recommended Normal contrast-enhanced CT of the chest. Normal contrast-enhanced CT of the abdomen and pelvis. Electronically Signed: Edward Tejeda MD at 20:28 EDT , Physical Exam Const oriented x3 and no apparent distress Resp normal respiratory effort GI normal to inspection, nondistended, normoactive bowel sounds Assessment & Plan Assessment/Plan (1) Right upper quadrant pain: PLAN: The patient reports that her right upper abdominal pain is improved and she denies nausea or vomiting. She says she is feeling hungry. She is having a scope by Dr. Greene and then she can start a regular diet from my standpoint. We did a HIDA yesterday which showed normal filling of the gallbladder. Echo of the heart is pending. CTA of the abdomen pelvis and chest were done yesterday and the only finding was the lesions in the kidney. Garrett Balderrama MD Pager: [facility] [address] [place] [address], [address] [place] [phone] Office:
[2024-02-10 09:14] LABS: Fibrinogen 701 mg/dl (203-444)
[2024-02-10 09:22] LABS: D-Dimer Quantitative (DVT/PE) 5.73 FEU/ug/m (0.27-0.49)
--- NOTE | 2024-02-10 09:55 | PCM.PRE.AN2 ---
ASA Classification* ASA Classification ASA Classification: 2 Assessment & Plan Anesthesia* Anesthesia Assessment Anesthesia Assessment: Discussed sedation and/or anesthesia options, risks, benefits, and alternatives with patient/parents/legal guardian/POA. Questions invited. The patient/parents/legal guardian/POA seems to understand and agrees to proceed with anesthesia plan. Reviewed the physical assessment, medical history, allergy history and patient home medications list prior to surgery/procedure/anesthetic and documented any changes. Performed airway and anesthesia risk assessments. Anesthesia Type Anesthesia Type: MAC Pre-Assessment Diagnosis/Proposed Procedure Planned Operative Procedure(s): egd Anesthesia History Anesthesia History - supervisor lens generating: Anesthesia History - supervisor lens generating Hx Hospitalization Any Problems With Anesthesia No 02/09/24 05:50 Cholinesterase deficiency No 02/09/24 05:50 You/Your Family Experience No 02/09/24 05:50 fever (hyperthermia) with Relationship Recent Exposure to Contagious No 02/09/24 05:50 Disease Does patient have nerve No 02/09/24 05:50 stimulator Patient instructed to have No 02/09/24 05:50 device shut off --Does patient have Pacemaker No 02/10/24 05:50 or ICD? When Was Last Pacemaker Check QUESTION #4 FULL TEXT: You/Your Family Experience fever (hyperthermia) with Anesthesia Last Oral Intake Last Oral intake: Last Oral Intake NPO since 00:00 02/10/24 05:50 Meds taken in AM with sips of water? Meds patient instructed to take am of surgery PONV PONV - supervisor lens generating: PONV - supervisor lens generating Female HX of Motion Sickness HX of N/V After Surgery Non-Smoker Duration of Surgery greater than 60 minutes Number of Risk Factors PONV Score Height & Weight Height & Weight: Anesthesia: Height & Weight Height 5 ft 4 in 02/10/24 05:50 Weight: 72.4 kg 02/10/24 05:50 Body Mass Index (BMI) 27.3 02/10/24 05:50 Respiratory Assessment Respiratory Assessment - supervisor lens generating: Respiratory Tract Infection Hx - supervisor lens generating Hx Respiratory Tract Infection No 02/09/24 05:50 STOP Sleep Apnea STOP Sleep Apnea - supervisor lens generating: STOP Sleep Apnea - supervisor lens generating Hx Hypertension No 02/09/24 00:45 Hx Sleep Apnea No 02/09/24 00:45 CPAP BIPAP Do you snore loudly (louder No 02/09/24 00:45 than talking or can be heard Do you often feel tired/ No 02/09/24 00:45 fatigued/ sleepy during daytime? Has anyone observed you stop No 02/09/24 00:45 breathing during sleep? STOP Results Negative 02/09/24 00:45 QUESTION #5 FULL TEXT : Do you snore loudly (louder than talking or can be heard through closed doors)? 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 Specify any problems Hx of Preganancy in last 3 No 02/09/24 00:45 Months Nurse Filling Out Transfusion [id number] 02/09/24 00:45 & Questions: Date: 02/09/24 02/09/24 00:45 Time: 00:47 02/09/24 00:45 Patient unable to answer at this time (ie. confused, unrespo /Reproduction History /Reproductive History - supervisor lens generating: /Reproductive Hx- supervisor lens generating Hx Now No 02/09/24 05:50 Gestational Age (in weeks): EDC: Hx Hx Para Hx Section SAB No 02/09/24 05:50 Active Medications Active Medications: Current Medications Generic Name Dose Route Start Last Admin Trade Name Freq PRN Reason Stop Dose Admin Acetaminophen 1,000 mg 02/09/24 18:59 Acetaminophen 500 Mg Tablet PO Q8 PRN Pain 1-10 or Fever Duloxetine HCl 60 mg 02/10/24 10:00 02/09/24 23:02 Duloxetine Hcl 60 Mg Capsule PO 60 mg DAILY DIVINA Administration Piperacillin Sod/Tazobactam 50 mls @ 12.5 mls/hr 02/09/24 06:00 02/10/24 09:36 Sod 3.375 gm/ Sodium Chloride IV Infused Q8 DIVINA Infusion Vancomycin IV-PHARMACY TO DOSE 500 mls @ 250 mls/hr 02/09/24 00:43 1 each/ Sodium Chloride IV X1 PRN Rx to Dose Protocol Sodium Chloride 250 mls @ 15 mls/hr 02/09/24 00:54 IV .[id number] PRN Additional IVPB Infusion Sodium Chloride 250 mls @ 15 mls/hr 02/09/24 00:54 IV .[id number] PRN Saline Flush Vancomycin HCl 1,000 mg in 200 mls @ 200 mls/hr 02/09/24 13:30 02/10/24 05:34 Vancomycin IV Infused Q12H DIVINA Infusion Pantoprazole Sodium 40 mg/ 110 mls @ 330 mls/hr 02/09/24 10:00 02/09/24 22:42 Sodium Chloride IV Infused Q12 DIVINA Infusion Ketorolac Tromethamine 15 mg 02/09/24 00:14 02/09/24 19:47 Ketorolac 15 Mg/Ml Vial IV 02/14/24 00:14 15 mg Q8H PRN PRN Administration Pain 1-5/10 or Fever Morphine Sulfate 2 mg 02/09/24 00:43 02/09/24 21:57 Morphine 2 Mg/Ml Syringe IV 2 mg Q4H PRN PRN Administration Pain Score 6-10 Nicotine 14 mg 02/09/24 10:00 02/09/24 09:37 Nicotine 14 Mg Patch TD 14 mg DAILY DIVINA Administration Ondansetron HCl 4 mg 02/09/24 02:33 02/09/24 11:01 Ondansetron 4 Mg/2 Ml Vial IV 4 mg Q6H PRN PRN Administration NAUSEA Sodium Chloride 10 - 40 ml 02/09/24 00:54 02/09/24 16:07 0.9% Saline Lock 10 Ml Syringe IV 10 ml UD PRN Administration SALINE FLUSH Vancomycin Protocol 1 lab 02/10/24 11:00 Vancomycin Trough/Random Due MC 02/10/24 13:00 DAILY [facility] Anesthesia Focused Assessment* Temperature: 98.2 F Pulse Rate: 83 Blood Pressure: 106/66 Respiratory Rate: 16 Pulse Ox: 97 Airway Assessment Mouth opens: >3 cm Mallampati Score: II Focused Labs Anesthesia Preop lab: CBC WBC 15.5 K/mm3 (4.4-11.0) H 02/10/24 06:14 RBC 3.22 M/mm3 (4.2-5.4) L 02/10/24 06:14 Hgb 8.7 g/dL (12.0-15.0) L 02/10/24 06:14 Hct 28.2 % (37-47) L 02/10/24 06:14 Plt Count 781 K/mm3 (150-450) H* 02/10/24 06:14 CHEMISTRY Potassium 3.9 mmol/L (3.5-5.1) 02/10/24 06:14 Sodium 137 mmol/L (136-145) 02/10/24 06:14 Magnesium 2.0 mg/dL (1.6-2.6) 02/10/24 06:14 Phosphorus 3.3 mg/dL (2.5-4.9) 02/10/24 06:14 BUN 6 mg/dL (7-18) L 02/10/24 06:14 Creatinine 0.75 mg/dL (0.55-1.02) 02/10/24 06:14 Glucose 96 mg/dL (74-106) 02/10/24 06:14 TSH 0.36 uIU/mL (0.358-3.74) 02/08/24 22:03 COAG PT 15.8 SECONDS (11.7-14.9) H 02/10/24 06:14 Review of Systems (Anesthesia) ROS Narrative System reviewed and no additional complaints, except as documented. [facility] Medical History Polysubstance abuse Tobacco abuse Admitted to substance misuse detoxification center Depressed bipolar I disorder Anxiety Home Medications ?Medication ?Instructions ?Recorded ?Last Taken ?Type duloxetine 60 mg capsule,delayed 60 mg PO DAILY depressant 01/23/24 02/07/24 History release dextroamphetamine-amphetamine 30 1 tab PO DAILY PRN as needed 02/08/24 Unknown History mg tablet esomeprazole magnesium 20 mg 20 mg PO DAILY indigestion 02/08/24 Unknown History capsule,delayed release (Nexium) Allergy/AdvReac Type Severity Reaction Status Date / Time No Known Allergies Allergy Verified 02/08/24 21:17 Surgical History Hx of section Social History Smoking Status: Current every day smoker tobacco type: cigarettes
--- NOTE | 2024-02-10 10:15 | IMM_PTH ---
PATIENT: KENY AKINS LOC: [facility] U#:[id number] AGE/SX: 44/F ROOM: [facility] RE02/09/[address]: Dr. Kalpana Purcell DO : 1980 BED: 1 DIS: 02/11/2024 SPEC #: [id number] RECD: 02/10/24 12:43 STATUS: [place] REQ #: [id number] KEKE: 02/10/24 10:[address]: Arcadio Greene DEPT: IMMUNOHISTOCHEMISTRY RECD BY: Will Og ENTERED: 02/10/24 12:43 SP TYPE: IMMUNO OTHR DR: MD Dr. Dari Castillo MD Dr. David de Lorenzo, DO Dr. Kathryn Lee, DO Tissues: B - Gastric mucous membrane Procedures: H Pylori (initial) PHYSICIAN & INSTITUTION [place] [phone] SPECIMEN INFORMATION: Tissue Source: B- Gastric antrum biopsy Clinical Info: Jennifer Specimen Number: [id number] CPT code: 13695 METHODOLOGY: Deparaffinized sections of prefer/formalin-fixed tissue or PAP/DQ stained slides are incubated with monoclonal/polyclonal antibodies/oligonucleotide probes. Localization is made via biotin free immunoperoxidase method. Appropriate controls are performed and reacted as expected. Results on target cell population are indicated in the following table: RESULTS: ANTIBODY / CLONE RESULT Block B H Pylori (polyclonal) negative These tests were developed and their performance characteristics determined by [facility]. They may not have been cleared or approved by the U.[place]. Food and Drug Administration. The FDA has determined that such clearance or approval is not necessary. The above immunohistochemical/dualISH markers are ordered and reviewed by the Pathologist. INTERPRETATION: B. Gastric antrum, biopsy: Negative for Helicobacter pylori organisms. LUIS FELIPE/ 02/11/2024
--- NOTE | 2024-02-10 11:11 | PCM.POST.ANE ---
Anesthesia: Postop Eval I Current Vital Signs Temperature: 98.4 F Pulse Rate: 98 Blood Pressure: 117/66 Respiratory Rate: 18 Pulse Ox: 98 Oxygen Delivery Method: Room Air Assessment Airway patent: Yes Spontaneous unlabored respirations: Yes Mental status: Asleep nausea: No Vomiting: No Anesthesia Complication: No Fluid Hydration Crystalloid volume administer (ml): 400 Total IV fluid infused: 400 Progress Note Anesthesia document: Postop Eval 1 completed: Yes
--- NOTE | 2024-02-10 11:12 | OP.EGD_ITS ---
Patient Name: Adia Garcia Procedure Date: 02/10/2024 10:47 AM Date of : 1980 Age: 44 Procedure: Upper GI endoscopy Indications: Iron deficiency anemia Providers: Arcadio Greene DO Medicines: Monitored Anesthesia Care Patient Profile: This is a 44 year old female. Refer to note in patient chart for documentation of history and physical. Patient has symptoms of acute epigastric abdominal pain. Complications: No immediate complications. Procedure: Pre-Anesthesia Assessment: - Prior to the procedure, a History and Physical was performed, and patient medications and allergies were reviewed. The patient is competent. The risks and benefits of the procedure and the sedation options and risks were discussed with the patient. All questions were answered and informed consent was obtained. Patient identification and proposed procedure were verified by the physician in the pre-procedure area. Mental Status Examination: alert and oriented. Airway Examination: normal oropharyngeal airway and neck mobility. Respiratory Examination: clear to auscultation. CV Examination: normal. Prophylactic Antibiotics: The patient does not require prophylactic antibiotics. Prior Anticoagulants: The patient has taken no anticoagulant or antiplatelet agents. ASA Grade Assessment: III - A patient with severe systemic disease. After reviewing the risks and benefits, the patient was deemed in satisfactory condition to undergo the procedure. The anesthesia plan was to use monitored anesthesia care (MAC). Immediately prior to administration of medications, the patient was re-assessed for adequacy to receive sedatives. The heart rate, respiratory rate, oxygen saturations, blood pressure, adequacy of pulmonary ventilation, and response to care were monitored throughout the procedure. The physical status of the patient was re-assessed after the procedure. After obtaining informed consent, the endoscope was passed under direct vision. Throughout the procedure, the patient's blood pressure, pulse, and oxygen saturations were monitored continuously. The Endoscope was introduced through the mouth, and advanced to the second part of duodenum. The upper GI endoscopy was accomplished without difficulty. The patient tolerated the procedure well. Scope In: 10:57:57 AM Scope Out: 11:02:14 AM Total Procedure Duration Time 0 hours 4 minutes 17 seconds Findings: The examined esophagus was normal. Localized mildly erythematous mucosa without bleeding was found in the gastric body. The examined duodenum was normal. Localized mildly erythematous mucosa without active bleeding and with no stigmata of bleeding was found in the duodenal bulb. Biopsies were taken with a cold forceps for histology. Verification of patient identification for the specimen was done. Estimated blood loss was minimal. Impression: - Normal esophagus. - Erythematous mucosa in the gastric body. - Normal examined duodenum. - Erythematous duodenopathy. Biopsied. Recommendation: - Return patient to [facility]. - Continue present medications. Arcadio Greene DO 02/10/2024 11:11:57 AM This report has been signed electronically. Number of Addenda: 0 Note Initiated On: 02/10/2024 10:47 AM
[2024-02-10] MEDS: Pantoprazole Sodium 40 MG in 0.9% Normal Saline (100mL MB+) 100 ML 330 MG IV ×2 (13:09→21:00)
--- NOTE | 2024-02-10 13:20 | PCM.POSTANE2 ---
Anesthesia Postop Eval I Sum Postop Eval Completion status Anesthesia document: Postop Eval 1 completed: Yes Anesthesia Postop Eval I Summary Anesthesia Postop Eval I Summary: Anesthesia Postop Eval I: Assessment Summary Airway patent Yes 02/10/24 11:15 [email or web address] Spontaneous unlabored Yes 02/10/24 11:15 [email or web address] respirations Mental status Asleep 02/10/24 11:15 [email or web address] nausea No 02/10/24 11:15 [email or web address] Vomiting No 02/10/24 11:15 [email or web address] Anesthesia Postop Eval I: Fluid Summary Crystalloid volume administer 400 02/10/24 11:15 [email or web address] (ml) Colloids volume administered ( ml) Blood Product volume administered (ml) Total IV fluid infused 400 02/10/24 11:15 [email or web address] Anesthesia Postop Eval I: Summary Notes Anesthesia Complication No 02/10/24 11:15 [email or web address] Anesthesia Complication Comment: Post-operative progress note Anesthesia: Postop Eval II Evaluation Mental status: Awake Pain Level: 0 nausea: No Vomiting: No Complications Anesthesia Complication: No
--- NOTE | 2024-02-10 13:38 | VDLE_ITS ---
Reason For Study: Elevated D Dimer RIGHT LEFT GSV is normal. GSV is normal. CFV is compressible, spontaneous, phasic, CFV is compressible, spontaneous, phasic, competent and demonstrates normal competent, and demonstrates normal augmentation. augmentation. FV is compressible, spontaneous, phasic, FV is compressible, spontaneous, phasic, competent and demonstrates normal competent and demonstrates normal augmentation. augmentation. POP V is compressible, spontaneous, phasic, POP V is compressible, spontaneous, phasic, competent and demonstrates normal competent and demonstrates normal augmentation. augmentation. T/P Trunk is compressible. T/P Trunk is compressible. PTV is compressible. PTV is compressible. RT PerV is compressible. LT PerV is compressible. Procedure This is a venous duplex using B-mode, color flow and spectral Doppler. Exam performed in department. The exam was diagnostic. A preliminary report was called and/or faxed to [employer] ORIGINATOR Responsible for patient. VL/Venous Duplex US - Stevan Extrem Interpretation Summary Deep veins of the lower extremities are bilaterally patent and compressible seg mentally. There is no evidence of deep vein thrombosis on either side. Valvular competence appears in tact within the proximal deep venous systems bilaterally. The great saphenous veins appear bila terally patent and compressible segmentally. Ordering Physician: Kalpana Purcell Referring Physician: Dari Ma M.D. Performed By: Lisandro Araiza [place]
[2024-02-10 13:55] LABS: Vancomycin, Trough Level 10.9 ug/mL (5.0-15.0)
[2024-02-10 14:11] LABS: CCP IgG Antibodies 1 units (0-19); Cytoplasmic Ab (C-ANCA) <1:20 titer (Neg:<1:20); Perinuclear Ab (P-ANCA) <1:20 titer (Neg:<1:20)
[2024-02-10 14:11] LABS: Anti-Centromere B Ab <0.2 AI (0.0-0.9); Anti-Chromatin <0.2 AI (0.0-0.9); Anti-Jo <0.2 AI (0.0-0.9); Anti-Scleroderma-70 AB <0.2 AI (0.0-0.9); Anti-dsDNA Ab <1 IU/mL (0-9); RNP Ab <0.2 AI (0.0-0.9); SJOGREN'S Anti-SS-A test < 0.2 AI (0.0-0.9); SJOGREN'S Anti-SS-B test < 0.2 AI (0.0-0.9); Smith Ab <0.2 AI (0.0-0.9)
[2024-02-10 14:18] LABS: Pathologist Review Reviewed
--- NOTE | 2024-02-10 14:56 | PCM.RX.CS ---
Consult Antibiotic Management Pharmacy has been consulted to manage selected antibiotic: Vancomycin Type of Intervention Type of Consult: Follow-up Labs Labs: Sodium 137 mmol/L (136-145) 02/10/24 06:14 Potassium 3.9 mmol/L (3.5-5.1) 02/10/24 06:14 Chloride 105 mmol/L (98-107) 02/10/24 06:14 Carbon Dioxide 25.0 mmol/L (21.0-32.0) 02/10/24 06:14 Anion Gap 7 (5-15) 02/10/24 06:14 BUN 6 mg/dL (7-18) L 02/10/24 06:14 Creatinine 0.75 mg/dL (0.55-1.02) 02/10/24 06:14 Est GFR (MDRD) Af Amer 108 mL/min (>60) 02/10/24 06:14 Est GFR (MDRD) Non-Af 90 mL/min (>60) 02/10/24 06:14 BUN/Creatinine Ratio 8.0 RATIO (10-20) L 02/10/24 06:14 Glucose 96 mg/dL (74-106) 02/10/24 06:14 Vancomycin Trough 10.9 ug/mL (5.0-15.0) 02/10/24 13:10 Microbiology Microbiology: Microbiology 02/08/24 22:06 Urine, Clean Catch Urine Culture - Preliminary Presumptive E. coli 02/08/24 23:05 Stool Stool Occult Blood (DARLIN) - Final 02/08/24 21:47 Mucosa - Nose SARS-CoV-2, Influenza & RSV (PCR) - Final Goal Trough Goal Trough: 15-20 mcg/mL Pharmacy Plan for Drug Dosing Pharmacy Plan for Drug Dosing: VANCOMYCIN LEVEL RECEIVED Current Vancomycin Dose: 1000mg q12h Number of Doses Received: 2 Vancomycin Level: 10.9 Hours Since Last Dose: 10hr Renal Function: 0.75 Renal Function Trend: Stable Lab/Micro: Urine (E. coli); Blood (pending) Vancomycin Plan/Comments: Trough drawn at 10.9, goal is 15-20. Will initiate regimen of vancomycin 1000mg q8h to start 02/09 @ 15:00 Pending Level: 02/11/24 @ 14:30, prior to 4th of new regimen Pharmacy Service will continue to monitor and adjust dosing as required.
--- NOTE | 2024-02-10 15:03 | CASEMGMT ---
RN CM attempted to complete assessment. Patient states she is not feeling well and would like to complete assessment tomorrow. RN MAYUR will attempt to complete assessment tomorrow with patient.
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
[2024-02-10] MEDS: Vancomycin Trough/Random Due 1 LAB MC (15:12)
[2024-02-10] MEDS: DULoxetine Hcl 60 MG Capsule PO (15:12)
[2024-02-10] MEDS: Ondansetron 4 MG/2 ML Vial IV (17:11)
[2024-02-10] MEDS: Ketorolac 15 MG/ML Vial IV (17:11)
[2024-02-10] MEDS: Acetaminophen 500 MG Tablet 1000 MG PO (17:12)
[2024-02-11 03:15] VITALS: BP 117/77; PULSE 85; RESP 16; TEMP 36.6; O2SAT 96
[2024-02-11] MEDS: Piperacil/Tazobactam 3.375 GM in 0.9% Normal Saline (50mL MB+) 50 ML IV (05:52)
[2024-02-11] MEDS: Vancomycin IV 1,000 MG/200 ML BAG 200 MG IV (05:53)
[2024-02-11] MEDS: Ondansetron 4 MG/2 ML Vial IV (06:50)
[2024-02-11] MEDS: Ketorolac 15 MG/ML Vial IV (06:50)
[2024-02-11 08:16] LABS: Absolute Lymphocyte Count 2.18 X10^3/uL (0.83-4.51); Absolute Neutrophil Count 7.8 X10^3/uL (2.0-7.7); Basophil# 0.04 X10^3/uL; Basophil% 0.4 % (0-1); Eosinophil# 0.08 X10^3/uL; Eosinophils% 0.7 % (0-5); Hematocrit 28.6 % (37-47); Hemoglobin 9.2 g/dL (12.0-15.0); Lymphocyte # 2.18 X10^3/ul (0.83-4.51); Lymphocyte % 19.1 % (19-41); Mean Corp Hgb Conc 32.2 g/dL (32-36); Mean Corpuscular Hgb 27.7 pg (27.0-32.0); Mean Corpuscular Volume 86.1 fL (81-99); Mean Platelet Vol. 8.3 fl (6.2-12.0); Monocyte# 1.31 X10^3/uL; Monocyte% 11.5 % (0-10); NRBC Flagged by Analyzer 0 % (0-5); Neutrophil # 7.75 X10^3/uL (2.7-7.7); Neutrophil % 67.9 % (47-70); POSITIVE COUNT YES; Platelet Count 751 K/mm3 (150-450); RBC Distribution Width CV 14.5 % (11.6-14.6); RBC Distribution Width SD 45.8 fl (35.1-43.9); Red Blood Count 3.32 M/mm3 (4.2-5.4); White Blood Count 11.4 K/mm3 (4.4-11.0)
[2024-02-11 08:40] LABS: Differential Indicated SCAN CRITERIA MET
[2024-02-11 09:01] LABS: Anion Gap 5 (5-15); BUN 9 mg/dL (7-18); BUN/Creat Ratio 11.8 RATIO (10-20); Calcium,Total 8.7 mg/dL (8.5-10.1); Chloride 103 mmol/L (98-107); Creatinine, Serum 0.76 mg/dL (0.55-1.02); EST Glomerular Filtration Rate 88 mL/min (>60); Est Glom Filt Rate - Afr Amer 107 mL/min (>60); Estimated Creatinine Clearance 94.05 ml/min; Glucose 101 mg/dL (74-106); Potassium 3.4 mmol/L (3.5-5.1); Sodium Level 136 mmol/L (136-145)
--- NOTE | 2024-02-11 09:06 | PCM.PN.BLA ---
Progress Note Patient is being worked up for her thrombocytosis and cultures are pending. I was originally consulted for the gallbladder and HIDA showed that it was in the gallbladder. I will sign off currently. If needed over the weekend please contact Dr. Muñiz who is covering for me.
[2024-02-11 09:43] VITALS: BP 121/74; PULSE 85; RESP 16; TEMP 36.9; O2SAT 93
[2024-02-11] MEDS: Cefdinir 300 MG Capsule PO (09:45)
[2024-02-11] MEDS: Pantoprazole Sodium 40 MG in 0.9% Normal Saline (100mL MB+) 100 ML 330 MG IV (09:45)
[2024-02-11] MEDS: DULoxetine Hcl 60 MG Capsule PO (09:45)
[2024-02-11 10:09] LABS: Platelet Estimate MKD INC (ADEQ)
[2024-02-11] MEDS: Potassium Chloride Oral Tablet 20 MEQ 40 MEQ PO (11:44)
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
--- NOTE | 2024-02-11 11:54 | CASEMGMT ---
RN CM Face to Face with patient for initial transition planning/care coordination assessment. RN CM introduced self and role at [facility]. Patient lying in bed, alert and oriented. Patient willing to participate in assessment and is able to answer all questions appropriately. Care providers, pharmacy, and demographics verified. PCP: Francesca Specialists: none Preferred Pharmacy: [facility] Insurance: [employer] Prescription Benefit: yes Living Will/HPOA: none LNOK: parents Living Arrangements: Patient lives with parents in a 2 story home. Patient is independent and able to ambulate stairs. Transportation: self, parents DME/HHC: Patient denies DME in the home. No previous HHC or SNF Patient wishes to discharge home, denies needs at discharge. Patient states he has no further needs or concerns at this time. CM to follow for discharge planning needs that may arise. Disposition Plan: Patient to discharge home with family support and follow-up plans in place. Lianet WALSH, RN, CM
--- NOTE | 2024-02-11 13:06 | PHA.DC_ITS ---
Pharmacy [facility] has performed discharge medication reconciliation and counseling for this patient. The patient's discharge medication list was reviewed for discrepancies and discrepancies were resolved. The patient was counseled on the following discharge medications and changes in medications for homegoing were reviewed. The Reason for Use, instructions for use, and potential side effects were reviewed for all new medications. The patient's questions regarding all of their medications were answered. 1. Cefdinir 300 mg PO BID x 12 days The patient was able to verbally demonstrate an understanding of their discharge medications. The patient was counselled on new medications by instructor adjunct pharmacy technician Bill. Medications at Discharge Home Medications duloxetine 60 mg capsule,delayed release 60 mg PO DAILY depressant 01/23/24 esomeprazole magnesium 20 mg capsule,delayed release (Nexium) 20 mg PO DAILY indigestion 02/08/24 cefdinir 300 mg capsule 300 mg PO Q12 #24 caps 02/11/24
[2024-02-11 14:10] VITALS: BP 99/67; PULSE 82; RESP 16; TEMP 36.5; O2SAT 98
[2024-02-14 13:35] LABS: Pathologist Review Reviewed
[2024-02-16 01:07] LABS: Lyme IgG P18 Ab Absent (.); Lyme IgG P23 Ab Absent (.); Lyme IgG P28 Ab Absent (.); Lyme IgG P30 Ab Absent (.); Lyme IgG P39 Ab Absent (.); Lyme IgG P41 Ab Absent (.); Lyme IgG P45 Ab Absent (.); Lyme IgG P58 Ab Present (.); Lyme IgG P66 Ab Absent (.); Lyme IgG P93 Ab Absent (.); Lyme IgG WB Interpretation Negative (.); Lyme IgM P23 Ab Absent (.); Lyme IgM P39 Ab Absent (.); Lyme IgM P41 Ab Absent (.); Lyme IgM WB Interpretation Negative (.)
== END 2024-02-11 15:18 | disposition home or self-care (01) | DRG 463 ==
LOC: ED 21:45 → PCU 02-09 00:31
PROVIDERS: Internal Medicine Gastroenterology; Surgery; Admitting Provider Internal Medicine; Emergency Provider Emergency Medicine; PCP Family Medicine; Visit Provider Internal Medicine
PROC: 0DJ08ZZ Inspection of Upper Intestinal Tract, Via Natural or Artificial Opening Endoscopic (ICD-10-PCS; CPT 43235; principal; 2024-02-10 10:10)
DX: N12 Tubulo-interstitial nephritis, not specified as acute or chronic (principal); D63.8 Anemia in other chronic diseases classified elsewhere; E88.09 Other disorders of plasma-protein metabolism, not elsewhere classified; E83.39 Other disorders of phosphorus metabolism; E87.1 Hypo-osmolality and hyponatremia; K76.0 Fatty (change of) liver, not elsewhere classified; F31.9 Bipolar disorder, unspecified; K82.8 Other specified diseases of gallbladder; F17.210 Nicotine dependence, cigarettes, uncomplicated; K21.9 Gastro-esophageal reflux disease without esophagitis; M79.10 Myalgia, unspecified site; D50.9 Iron deficiency anemia, unspecified; F15.90 Other stimulant use, unspecified, uncomplicated; K29.70 Gastritis, unspecified, without bleeding; D75.839 Thrombocytosis, unspecified; R16.0 Hepatomegaly, not elsewhere classified; F90.9 Attention-deficit hyperactivity disorder, unspecified type; F41.1 Generalized anxiety disorder; E66.3 Overweight; Z68.27 Body mass index [BMI] 27.0-27.9, adult; B96.20 Unspecified Escherichia coli [E. coli] as the cause of diseases classified elsewhere
CPT/HCPCS: 36415; 71275; 74174; 74177; 76705; 78226; 80048; 80053; 80202; 80307; 80320; 81001; 82274; 82550; 82728; 83540; 83550; 83605; 83735; 84100; 84134; 84443; 84703; 85025; 85045; 85379; 85384; 85610; 85652; 85730; 86140; 86200; 86225; 86235; 86256; 86431; 86617; 86850; 86900; 86901; 86920; 87040; 87086; 87088; 87186; 87631; 88305; 88342; 93005; 93306; 93970; 94762; 99285; A9537; J7030; J7040; J7120; P9016; Q9967; A4216; G0480; J2405

== ENCOUNTER 2024-06-27 13:20 | Emergency (ER) | payer MEDICAID, SELFPAY ==
[2024-06-27 13:22] VITALS: BP 135/96; PULSE 90; RESP 18; TEMP 36.5; O2SAT 100; BMI 28.3
[2024-06-27 13:25] VITALS: BP 135/96; PULSE 90; RESP 18; TEMP 36.5; O2SAT 100
[2024-06-27 14:25] VITALS: BP 137/81; PULSE 74; RESP 19; TEMP 36.6; O2SAT 96
--- NOTE | 2024-06-27 15:03 | EX.ED.DYSGE1 ---
HPI History of Present Illness Chief Complaint: General Illness [facility] Medical History Polysubstance abuse Tobacco abuse Admitted to substance misuse detoxification center Depressed bipolar I disorder Anxiety Home Medications ?Medication ?Instructions ?Recorded ?Last Taken ?Type aripiprazole 2 mg tablet 2 mg PO QHS 06/27/24 Unknown History clonidine HCl 0.1 mg tablet 0.1 mg PO BID PRN PRN withdrawal 06/27/24 Unknown History symptoms dextroamphetamine-amphetamine 30 1 tab PO DAILY 06/27/24 Unknown History mg tablet doxycycline monohydrate 100 mg 100 mg PO BID #14 CAPSULES 06/27/24 Unknown Rx capsule duloxetine 20 mg capsule,delayed mg PO 06/27/24 Unknown History release Allergy/AdvReac Type Severity Reaction Status Date / Time No Known Allergies Allergy Verified 06/27/24 13:22 Surgical History Hx of section Social History Smoking Status: Current every day smoker tobacco type: cigarettes EXAM Physical Exam Const Vital Signs: 06/27/24 13:22 06/27/24 13:25 06/27/24 14:13 Temperature 97.7 F L 97.7 F L Temperature Source Oral Oral Pulse Rate 90 90 Respiratory Rate 18 18 Respiratory Effort Normal Respiratory Pattern Normal Blood Pressure 135/96 H 135/96 H Blood Pressure Mean 109 109 Pulse Ox 100 100 Oxygen Delivery Method Room Air Room Air 06/27/24 14:25 Temperature 98 F Temperature Source Temporal Pulse Rate 74 Respiratory Rate 19 H Respiratory Effort Respiratory Pattern Blood Pressure 137/81 H Blood Pressure Mean 99 Pulse Ox 96 Oxygen Delivery Method Room Air MDM MDM MDM Narrative Medical decision making narrative: HISTORY OF PRESENT ILLNESS: 44-year-old female History of cocaine abuse presents with severe sinus infection. Notes congestion and green nasal secretions headache and nausea. She also concerned about a abscess behind her eye. Notes she uses cocaine by snorting essentially daily. Denies any epistaxis but notes for the past several months she has had congestion and pressure in her frontal sinus. She believes he has a sinus infection. She would like antibiotics. She also notes some blurry vision. The patient denies chest pain or shortness of breath Patient denies sudden onset or thunderclap headache, denies maximal intensity within 1 minute, vomiting, neck pain, stiffness, changes in vision, fever, history malignancy, syncope, or seizures associated with headache. REVIEW OF SYSTEMS: Pertinent positives: Headache, sinus drainage, nausea, congestion Pertinent negatives: Chest pain, shortness of breath, double vision PHYSICAL EXAM: Nursing triage notes reviewed, Vital signs reviewed Constitutional: please see mdm HENT: MMM, no nasal septal hematoma, no epistaxis, no obvious rhinorrhea or thick drainage noted. No pressure noted over frontal or maxillary sinuses. Eyes: Pupils equal round and reactive to light, Extraocular muscles intact, visual acuity 20/30 bilaterally, no pain with extraocular muscle movement, no proptosis Neck: No stridor, no JVD, full neck ROM Lungs: Clear to auscultation, No wheezing or rales. No increased work of breathing, no conversational dyspnea, no accessory muscle use, no nasal flaring. No respiratory distress noted Heart: Regular rate and rhythm, No murmurs, No rubs and No gallops, 2+ distal pulses (radial, femoral, posterior tibial) in all extremities Abdomen: Soft, there is no tenderness, rigidity, rebound or guarding, no obvious peritoneal signs, no palpable pulsatile abdominal masses, no auscultated abdominal bruit : No CVAT Extremities: No edema Neuro: No minor Skin: No rash or lesions noted MEDICAL DECISION MAKING: Chief Complaint: Headache, nasal congestion External records reviewed: Prior imaging reviewed: CT scan of the brain was reviewed from January 2024 showed no acute intracranial process, Factors affecting care: History of drug abuse, pyelonephritis, dental infections Social determinants of health: n history of illicit drug use History obtained from others: none Consults: none [facility] Narrative: The patient was initially hemodynamically stable, afebrile and nontoxic-appearing. Examwithout evidence of cavernous sinus thrombosis, orbital cellulitis, preseptal cellulitis or orbital abscess. I considered the following differential diagnosis: Sinus infection (viral versus bacterial), cavernous sinus thrombosis, orbital cellulitis, preseptal cellulitis, orbital abscess Patient's history and physical exam is most consistent with likely sinus inflammation probably from cocaine abuse but will cover with antibiotics. Given high risk lifestyle and likelihood for infection. The patient and/or family, caregivers express understanding. The patient and/or family, caregivers agrees with the plan. Shared decision making: I will have a discussion with the patient and or visitors regarding risk/benefits of further testing or admission. They will be made aware of of the risk/benefits inherent in this decision they will be given the opportunity to voice understanding. Total critical care time today provided was at least 0 minutes. This excludes separately billable procedures. Critical care time (if documented) is secondary to the patient having high probability of clinically significant/life threatening deterioration in the patient's condition which required my urgent intervention. Impression: 1. Headache 2. Chronic congestion 3. Sinus infection 4. Chronic cocaine abuse Dispo: Discharge home This note was generated with [employer] dictation software. It may contain incorrect words, spelling, and punctuation that were not noted in review of the chart prior to signing. Discharge Plan Triage Chief Complaint: General Illness ED Provider: Reynaldo Bergman Dx/Rx/DC Orders Clinical Impression: Acute infection of nasal sinus Instructions: ED Sinusitis (Antibiotic Treatment) Prescriptions: New doxycycline monohydrate 100 mg capsule 100 mg PO BID Qty: 14 0RF No Action clonidine HCl 0.1 mg tablet 0.1 mg PO BID PRN PRN (Reason: withdrawal symptoms) aripiprazole 2 mg tablet 2 mg PO QHS dextroamphetamine-amphetamine 30 mg tablet 1 tab PO DAILY duloxetine 20 mg capsule,delayed release(DR/EC) PO Primary Care Provider: Dari Ma Referrals: Dari Ma MD [Primary Care Provider] - Activity Restrictions/Additional Instructions: Thank you for trusting us with your care today! You have been diagnosed with a sinus infection Please take Tylenol (2 pills, 650 mg), ibuprofen (2 pills, 400 mg) every 6 hours as needed for pain and fever control. Please take antibiotics to course complete Please return to the emergency department if your symptoms change or worsen. Please follow with your primary care physician for further outpatient evaluation and management. Print Language: Cameroonian Disposition Disposition: Home, Self Care
[2024-06-27] MEDS: Doxycycline 100 MG CAPSULE PO (15:44)
== END 2024-06-27 15:47 | disposition home or self-care (01) ==
LOC: ED 15:25
PROVIDERS: Emergency Provider Emergency Medicine; PCP Family Medicine; Visit Provider Emergency Medicine
DX: J32.9 Chronic sinusitis, unspecified (principal); F14.10 Cocaine abuse, uncomplicated; F31.9 Bipolar disorder, unspecified; R51.9 Headache, unspecified; Z79.899 Other long term (current) drug therapy; F41.9 Anxiety disorder, unspecified; F17.210 Nicotine dependence, cigarettes, uncomplicated
CPT/HCPCS: 99284

== ENCOUNTER → 2024-07-06 | Outpatient (CLI) | payer MEDICAID, SELFPAY | END | disposition home or self-care (01) | PROVIDERS: PCP Family Medicine; Referring Provider Otolaryngology; Visit Provider Otolaryngology | DX: J32.9 Chronic sinusitis, unspecified (principal) | CPT/HCPCS: 87070; 87077; 87186; 87205 ==

== ENCOUNTER 2024-09-04 14:28 | Inpatient (IN) | payer MEDICAID, SELFPAY ==
[2024-09-04 14:29] VITALS: BP 196/178; PULSE 81; RESP 19; TEMP 36; O2SAT 99; BMI 28.7
--- NOTE | 2024-09-04 14:44 | EX.ED.SAOD ---
HPI History of Present Illness Chief Complaint: Substance Abuse Informant: patient Narrative Narrative: Presents to ED for detox from benzodiazepine. On and off use for last 5 years of Xanax. She detoxed a year ago. Recently has been using it more frequently. Last use 10 hours ago. She does get withdrawal symptoms tremors and shakes. Currently states she started to mildly feel symptoms. Denies vomiting or diarrhea. She also uses cocaine which she snorts and smokes it. She denies IV drug use. Denies alcohol use. Denies cough, denies fever chills or sweats. Prior similar symptoms: [facility] Medical History (Updated 09/04/24 @ 21:[address] Kalpana Purcell, DO) Smoker Cocaine use Polysubstance abuse Tobacco abuse Admitted to substance misuse detoxification center Depressed bipolar I disorder Anxiety Home Medications ?Medication ?Instructions ?Recorded ?Last Taken ?Type amoxicillin 875 mg-potassium 1 tab PO BID sinus infections 09/04/24 Unknown History clavulanate 125 mg tablet duloxetine 60 mg capsule,delayed 60 mg PO QDAY 09/04/24 Unknown History release (Cymbalta) Allergy/AdvReac Type Severity Reaction Status Date / Time No Known Allergies Allergy Verified 06/27/24 13:22 Surgical History Hx of section Social History (Updated 09/04/24 @ 21:[address] Kalpana Purcell, DO) Smoking Status: Current every day smoker tobacco type: cigarettes alcohol intake: never substance use type: crack/cocaine and other details: Benzodiazepine abuse ROS ROS ED Constitutional Constitutional ED: Denies chills, fever(s) or sweats ENT ENT ED: Denies sore throat Cardiovascular Cardiovascular: Denies chest pain, leg edema, palpitations or racing heartbeat Respiratory/Chest Respiratory/Chest: Denies cough, dyspnea or dyspnea on exertion Gastrointestinal Gastrointestinal: Denies abdominal pain, diarrhea, nausea or vomiting Genitourinary Genitourinary ED: Denies dysuria, hematuria or urinary frequency Musculoskeletal Musculoskeletal: Denies back pain, extremity pain or neck pain Integumentary Denies rash or wounds Neurologic Neurologic: Reports other Details: Feels shaky ; Denies headache(s), paresthesias or weakness EXAM Physical Exam Const Vital Signs: 09/04/24 14:29 09/04/24 15:01 Temperature 96.8 F L Temperature Source Temporal Pulse Rate 81 Respiratory Rate 19 H Blood Pressure 196/178 H 135/81 H Blood Pressure Mean 184 99 Pulse Ox 99 Oxygen Delivery Method Room Air Positive well nourished and well developed General Appearance ED: well developed and NAD HEENT Reports moist mucous membranes normocephalic and atraumatic Eyes General Eye ED: Yes normal appearance of both eyes Neck full ROM Chest Wall Chest: Negative for tenderness Resp normal respiratory effort and normal air movement Effort and Inspection: symmetric chest movement; Negative for respiratory distress Cardio regular rate, regular rhythm and no murmurs Peripheral Pulses: pulses 2+ throughout GI normal to inspection, nondistended, normoactive bowel sounds and non-tender Palpation: Negative for guarding or rebound tenderness present Extremity normal to inspection General Extremety ED: Negative for edema or tenderness General Extremity: Negative for edema Neuro oriented x3 and no sensory deficits noted Sensorium / Orientation: awake and alert Skin no rashes or lesions noted and no wounds MDM MDM MDM Narrative Medical decision making narrative: Interventions / MDM: Differential diagnosis: Benzodiazepine dependence, benzodiazepine withdrawal. Polysubstance use Diagnosis considered but do not suspect: N/A My EKG interpretation: N/A Imaging independently reviewed and interpreted by myself: N/A External documents reviewed: N/A Test considered but not ordered:N/A ED course: Elevated blood pressure on arrival. No headaches no chest pains. History of cocaine and benzodiazepine use. She understands no treatment for cocaine. Medical clearance labs obtained. Will plan for admission. Labs stable toxicology benzodiazepine and cocaine. Alcohol negative. I spoke with hospitalist Dr. Laurel Purcell for admission. Re-evaluation: stable Disposition discussed with patient/family/significant other: Patient Case discussed with consulting clinician: Hospitalist This note was generated with [employer] dictation software. It may contain incorrect words, spelling, and punctuation that were not noted in checking the note before signing. Lab Data Attestation: I reviewed the patient's lab results. Labs: Laboratory Results - last 24 hr 09/04/24 09/04/24 15:05 15:10 WBC 8.2 RBC 4.54 Hgb 13.3 Hct 40.0 MCV 88.1 MCH 29.3 MCHC 33.3 RDW Std Deviation 42.4 RDW Coeff of Vignesh 13.1 Plt Count 389 MPV 9.4 Immature Gran % (Auto) 0.400 Neut % (Auto) 58.1 Lymph % (Auto) 28.8 [place] % (Auto) 11.4 H Eos % (Auto) 0.7 Baso % (Auto) 0.6 Absolute Neuts (auto) 4.8 Absolute Lymphs (auto) 2.37 Nucleated RBC % 0 Sodium 139 Potassium 3.7 Chloride 110 H Carbon Dioxide 25.0 Anion Gap 4 L BUN 13 Creatinine 0.61 Estim Creat Clear Calc 119.78 Est GFR (MDRD) Af Amer 138 Est GFR (MDRD) Non-Af 114 BUN/Creatinine Ratio 21.3 H Glucose 102 Calcium 9.1 Serum , Qual NEGATIVE Urine Opiates Screen NEGATIVE Urine Methadone Screen NEGATIVE Ur Barbiturates Screen NEGATIVE Ur Phencyclidine Scrn NEGATIVE Ur Amphetamines Screen NEGATIVE MDMA (Ecstasy) Screen NEGATIVE U Benzodiazepines Scrn POSITIVE H Urine Cocaine Screen POSITIVE H U Cannabinoids Screen NEGATIVE Ur Drug Screen Comment Ethyl Alcohol < 3.0 Discharge Plan Disposition Disposition: Acute Care Hospital [facility] Discharge Date/Time: 09/04/24 22:52
[2024-09-04 15:01] VITALS: BP 135/81
[2024-09-04 15:20] LABS: Absolute Lymphocyte Count 2.37 X10^3/uL (0.83-4.51); Absolute Neutrophil Count 4.8 X10^3/uL (2.0-7.7); Basophil# 0.05 X10^3/uL; Basophil% 0.6 % (0-1); Eosinophil# 0.06 X10^3/uL; Eosinophils% 0.7 % (0-5); Hemoglobin 13.3 g/dL (12.0-15.0); Lymphocyte # 2.37 X10^3/ul (0.83-4.51); Lymphocyte % 28.8 % (19-41); Mean Corp Hgb Conc 33.3 g/dL (32-36); Mean Corpuscular Hgb 29.3 pg (27.0-32.0); Mean Corpuscular Volume 88.1 fL (81-99); Mean Platelet Vol. 9.4 fl (6.2-12.0); Monocyte# 0.94 X10^3/uL; Monocyte% 11.4 % (0-10); NRBC Flagged by Analyzer 0 % (0-5); Neutrophil # 4.79 X10^3/uL (2.7-7.7); Neutrophil % 58.1 % (47-70); Platelet Count 389 K/mm3 (150-450); RBC Distribution Width CV 13.1 % (11.6-14.6); RBC Distribution Width SD 42.4 fl (35.1-43.9); Red Blood Count 4.54 M/mm3 (4.2-5.4); White Blood Count 8.2 K/mm3 (4.4-11.0)
[2024-09-04 15:54] LABS: Amphetamine Urine VISTA NEGATIVE (<1000 ng/mL); Barbiturate Urine VISTA NEGATIVE (< 200 ng/mL); Benzodiazepine Urine VISTA POSITIVE (< 200 ng/mL); Cocaine Urine VISTA POSITIVE (< 300 ng/mL); Ecstacy Urine VISTA NEGATIVE (< 500 ng/mL); Methadone Urine VISTA NEGATIVE (< 300 ng/mL); PCP Urine VISTA NEGATIVE (< 25 ng/mL); THC Urine VISTA NEGATIVE (< 50 ng/mL); Vista UDS pH Range 7
[2024-09-04 16:07] LABS: Alcohol, Blood (Medical)-Serum < 3.0 mg/dL
[2024-09-04 16:10] LABS: Anion Gap 4 (5-15); BUN 13 mg/dL (7-18); BUN/Creat Ratio 21.3 RATIO (10-20); Calcium,Total 9.1 mg/dL (8.5-10.1); Chloride 110 mmol/L (98-107); Creatinine, Serum 0.61 mg/dL (0.55-1.02); EST Glomerular Filtration Rate 114 mL/min (>60); Est Glom Filt Rate - Afr Amer 138 mL/min (>60); Estimated Creatinine Clearance 119.78 ml/min; Glucose 102 mg/dL (74-106); Potassium 3.7 mmol/L (3.5-5.1); Sodium Level 139 mmol/L (136-145)
[2024-09-04 16:11] LABS: Internal QC Validated? YES +Cl - CLEAR BKGD; Pregnancy, Serum, hCG Quali. NEGATIVE Negative
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
[2024-09-04 16:36] VITALS: BP 142/78; PULSE 81; RESP 16; TEMP 36.6; O2SAT 99
[2024-09-04 17:00] VITALS: BP 142/78; PULSE 89; RESP 18; O2SAT 97
[2024-09-04 23:06] VITALS: BP 110/74; PULSE 67; RESP 16; TEMP 36.5; O2SAT 97
[2024-09-04 23:08] VITALS: BMI 28.1
[2024-09-04] MEDS: Phenobarbital 32.4 MG Tablet 64.8 MG PO (23:43)
[2024-09-04] MEDS: hydrOXYzine PAM 25 MG Capsule 50 MG PO (23:57)
[2024-09-04] MEDS: Amox/Clavulanate 875 MG Tablet PO (23:57)
[2024-09-04] MEDS: traZODone 100 MG Tablet PO (23:57)
[2024-09-05 04:06] VITALS: BP 99/62; PULSE 85; RESP 16; TEMP 36.6; O2SAT 93
[2024-09-05] MEDS: Phenobarbital 32.4 MG Tablet 64.8 MG PO ×6 (04:09→23:39)
[2024-09-05 08:00] VITALS: BP 97/60; PULSE 85; RESP 16; TEMP 36.8; O2SAT 96
[2024-09-05] MEDS: DULoxetine Hcl 60 MG Capsule PO (09:09)
[2024-09-05] MEDS: Thiamine Hydrochloride 100 MG Tablet PO (09:10)
[2024-09-05] MEDS: Amox/Clavulanate 875 MG Tablet PO ×2 (09:10→21:47)
[2024-09-05] MEDS: Folic Acid 1 MG Tablet PO (09:10)
--- NOTE | 2024-09-05 10:39 | PCM.PN.HOSP ---
Subjective Subjective Doing well, no issues overnight. Objective Data Objective Data Vital Signs: Vital Signs Temp Pulse Resp BP Pulse Ox O2 Del Method 97.9 F 85 16 99/62 93 Room Air 09/05/24 04:06 09/05/24 04:06 09/05/24 04:06 09/05/24 04:06 09/05/24 04:06 09/05/24 04:06 Oxygen Delivery Method Room Air Weight: 164 lb 0.383 oz Body Mass Index (BMI) 28.1 Intake & Output: Intake and Output for Last 24 Hours 09/04/24 09/05/24 09/06/24 03:59 03:59 03:59 Intake Total 100 / 100 300 / 300 Balance 100 / 100 300 / 300 Lab / Micro Data 09/04/24 15:10 09/04/24 15:10 Labs: Laboratory Results - last 24 hr 09/04/24 15:05: Urine Opiates Screen NEGATIVE, Urine Methadone Screen NEGATIVE, Ur Barbiturates Screen NEGATIVE, Ur Phencyclidine Scrn NEGATIVE, Ur Amphetamines Screen NEGATIVE, MDMA (Ecstasy) Screen NEGATIVE, U Benzodiazepines Scrn POSITIVE H, Urine Cocaine Screen POSITIVE H, U Cannabinoids Screen NEGATIVE, Ur Drug Screen Comment 09/04/24 15:10: WBC 8.2, RBC 4.54, Hgb 13.3, Hct 40.0, MCV 88.1, MCH 29.3, MCHC 33.3, RDW Std Deviation 42.4, RDW Coeff of Vignesh 13.1, Plt Count 389, MPV 9.4, Immature Gran % (Auto) 0.400, Neut % (Auto) 58.1, Lymph % (Auto) 28.8, [place] % (Auto) 11.4 H, Eos % (Auto) 0.7, Baso % (Auto) 0.6, Absolute Neuts (auto) 4.8, Absolute Lymphs (auto) 2.37, Nucleated RBC % 0, Sodium 139, Potassium 3.7, Chloride 110 H, Carbon Dioxide 25.0, Anion Gap 4 L, BUN 13, Creatinine 0.61, Estim Creat Clear Calc 119.78, Est GFR (MDRD) Af Amer 138, Est GFR (MDRD) Non-Af 114, BUN/Creatinine Ratio 21.3 H, Glucose 102, Calcium 9.1, Serum , Qual NEGATIVE, Ethyl Alcohol < 3.0 Physical Exam Narrative General: Alert, Oriented x3, Cooperative, No apparent distress HEENT: Atraumatic, PERRLA, EOMI, Normocephalic Oral: Moist Mucosa Neck: Supple, No JVD Lungs: Clear to auscultation, Normal air movement, No rhonchi, No wheeze, No rales Cardiovascular: Regular rate, Regular Rhythm, Normal S1, Normal S2, No murmurs Abdomen: Soft, Non Tender, Non-Distended, No Hepato-splenomegaly Extremities: No edema, Capillary Refill Less than 3 Seconds Skin: No rashes, No breakdown Musculoskeletal: No Tenderness to Palpation of Joints or Extremities Neurological: No focal neurological deficits, Motor Exam 5/5 strength throughout, Sensory exam intact to light touch and pain Psych/Mental Status: Normal Affect, Appropriate Assessment & Plan Assessment/Plan (1) Benzodiazepine abuse: (2) Desire for detoxification: PLAN: Plan 1. Benzo abuse requesting detox/cocaine abuse/history of bipolar disorder/tobacco abuse ? She would like to go inpatient if possible ? Consult 180 ? Continue with benzo withdrawal protocol ? Continue with her home Cymbalta ? Discussed tobacco cessation DVT: Ambulation Charges/Coding Visit Charges Inpatient E&M: 63467 Subs Hosp L2
[2024-09-05] MEDS: hydrOXYzine PAM 25 MG Capsule 50 MG PO ×2 (13:04→19:37)
[2024-09-05] MEDS: Acetaminophen 325 MG Tablet 650 MG PO (13:05)
[2024-09-05 14:54] VITALS: BP 105/62; PULSE 85; RESP 18; TEMP 36.9; O2SAT 96
[2024-09-05] MEDS: Gabapentin 300 MG Capsule PO (14:55)
[2024-09-05 19:40] VITALS: BP 112/65; PULSE 67; RESP 16; TEMP 36.6; O2SAT 97
[2024-09-05] MEDS: traZODone 100 MG Tablet PO (21:47)
[2024-09-06 02:00] VITALS: BP 109/65; PULSE 76; RESP 16; TEMP 36.6; O2SAT 100
[2024-09-06] MEDS: Phenobarbital 32.4 MG Tablet 64.8 MG PO ×4 (03:09→16:04)
[2024-09-06] MEDS: Gabapentin 300 MG Capsule PO (03:11)
[2024-09-06] MEDS: hydrOXYzine PAM 25 MG Capsule 50 MG PO (03:11)
[2024-09-06 08:00] VITALS: O2SAT 99
[2024-09-06 08:46] VITALS: BP 117/71; PULSE 83; RESP 16; TEMP 36.7; O2SAT 99
[2024-09-06] MEDS: DULoxetine Hcl 60 MG Capsule PO (08:47)
[2024-09-06] MEDS: Amox/Clavulanate 875 MG Tablet PO (08:47)
[2024-09-06] MEDS: Thiamine Hydrochloride 100 MG Tablet PO (08:47)
[2024-09-06] MEDS: Folic Acid 1 MG Tablet PO (08:47)
--- NOTE | 2024-09-06 11:21 | ADDICTION ---
This telegraphic typewriter operator met with PT to conduct ASAM, MSE, AUDIT, DUDIT assessments and to plan for d/c. PT A+Ox4 and participated actively. All assessments completed. PT plans to f/u with follow-up treatment services, however she reported she needs to find a place that will let her keep her phone. This worker offered resources. PT did not indicate a need for transportation post d/c from [facility].
--- NOTE | 2024-09-06 11:38 | PCM.PN.HOSP ---
Subjective Subjective No issues overnight. CIWA score of 2 Objective Data Objective Data Vital Signs: Vital Signs Temp Pulse Resp BP Pulse Ox O2 Del Method 98.0 F 83 16 117/71 99 Room Air 09/06/24 08:46 09/06/24 08:46 09/06/24 08:46 09/06/24 08:46 09/06/24 08:46 09/06/24 08:46 Oxygen Delivery Method Room Air Weight: 164 lb 0.383 oz Body Mass Index (BMI) 28.1 Intake & Output: Intake and Output for Last 24 Hours 09/05/24 09/06/24 09/07/24 03:59 03:59 03:59 Intake Total 100 / 100 2200 / 2200 Balance 100 / 100 2200 / 2200 Lab / Micro Data 09/04/24 15:10 09/04/24 15:10 Physical Exam Narrative General: Alert, Oriented x3, Cooperative, No apparent distress HEENT: Atraumatic, PERRLA, EOMI, Normocephalic Oral: Moist Mucosa Neck: Supple, No JVD Lungs: Clear to auscultation, Normal air movement, No rhonchi, No wheeze, No rales Cardiovascular: Regular rate, Regular Rhythm, Normal S1, Normal S2, No murmurs Abdomen: Soft, Non Tender, Non-Distended, No Hepato-splenomegaly Extremities: No edema, Capillary Refill Less than 3 Seconds Skin: No rashes, No breakdown Musculoskeletal: No Tenderness to Palpation of Joints or Extremities Neurological: No focal neurological deficits, Motor Exam 5/5 strength throughout, Sensory exam intact to light touch and pain Psych/Mental Status: Normal Affect, Appropriate Assessment & Plan Assessment/Plan (1) Benzodiazepine abuse: (2) Desire for detoxification: PLAN: Plan 1. Benzo abuse requesting detox/cocaine abuse/history of bipolar disorder/tobacco abuse ? She would like to go inpatient if possible ? Consult 180 ? Continue with benzo withdrawal protocol ? Continue with her home Cymbalta ? Discussed tobacco cessation DVT: Ambulation Charges/Coding Visit Charges Inpatient E&M: 37683 Subs Hosp L2
[2024-09-06 16:00] VITALS: BP 120/74; PULSE 94; RESP 15; TEMP 37; O2SAT 96
--- NOTE | 2024-09-06 19:00 | NURSING ---
PT SIGNED OUT AMA. DR FAIRBANKS AWARE. BELONGINGS (AUGMENTIN) RETURNED
== END 2024-09-06 18:57 | disposition home or self-care (01) | DRG 774 ==
LOC: ED 15:58 → MS3 22:39
PROVIDERS: Admitting Provider Internal Medicine; Emergency Provider Emergency Medicine; PCP Family Medicine; Referring Provider Internal Medicine; Visit Provider Family Medicine
DX: F13.139 Sedative, hypnotic or anxiolytic abuse with withdrawal, unspecified (principal); F14.10 Cocaine abuse, uncomplicated; F31.9 Bipolar disorder, unspecified; F17.210 Nicotine dependence, cigarettes, uncomplicated
CPT/HCPCS: 80048; 80307; 82077; 84703; 85025; 99283

== ENCOUNTER 2024-09-19 08:07 | Inpatient (IN) | payer MEDICAID, SELFPAY ==
[2024-09-19 08:07] VITALS: BP 132/101; PULSE 85; RESP 16; TEMP 36.2; O2SAT 100; BMI 27.4
--- NOTE | 2024-09-19 08:40 | EDS_ITS ---
HPI History of Present Illness Chief Complaint: Substance Abuse Narrative Narrative: Patient is a 44-year-old female with a past medical history of polysubstance abuse, and Xanax, crack cocaine, tobacco use, bipolar disorder who presents to the emergency department wanting detox. Patient states that she last used Xanax approximately few hours ago. She states that she has been here at the program few times in the past and wants to go through the tox again. Patient has no other complaints at this point in time. [facility] Medical History Smoker Cocaine use Polysubstance abuse Tobacco abuse Admitted to substance misuse detoxification center Depressed bipolar I disorder Anxiety Home Medications ?Medication ?Instructions ?Recorded ?Last Taken ?Type amoxicillin 875 mg-potassium 1 tab PO BID sinus infections 09/04/24 Unknown History clavulanate 125 mg tablet duloxetine 60 mg capsule,delayed 60 mg PO QDAY 09/04/24 Unknown History release (Cymbalta) Allergy/AdvReac Type Severity Reaction Status Date / Time No Known Allergies Allergy Verified 09/19/24 08:09 Family History no significant family his Surgical History Hx of section Social History Smoking Status: Current every day smoker tobacco type: cigarettes alcohol intake: never substance use type: crack/cocaine and other details: Benzodiazepine abuse ROS ROS ED ROS Narrative Constitutional: Denies headaches, fevers, chills, dizziness Eyes: Denies change in vision Cardiovascular: Denies chest pain palpitations Respiratory: Denies coughing wheezing shortness of breath Abdomen: Denies nausea vomit diarrhea : Denies any urinary symptoms Neurological: Denies numbness, wheeze, tingling Musculoskeletal: Denies back pain Skin: Denies rashes or lesions EXAM Physical Exam Narrative Exam Narrative: General: Patient lying in bed rest comfortably did not appear to be acute distress Head: Atraumatic, normocephalic Eyes: PERRL bilaterally, EOMI bilaterally, no conjunctival injection noted Neck: Soft, supple, trachea midline Cardiovascular: Regular in rhythm no murmurs gallops rubs noted Respiratory: Clear to auscultation bilaterally no rales rhonchi or wheezes noted Abdomen: Soft, nondistended, nontender to palpation Extremities: +5/5 strength noted in the bilateral upper and lower extremities, radial pulses +2/4 in the bilateral extremities, no pedal edema on exam Neurological: Patient following commands knew that she was at [facility] year is 2024 Skin: Warm, dry, intact no rashes or lesions noted Const Vital Signs: 09/19/24 08:07 09/19/24 09:33 Temperature 97.2 F L 97.2 F L Temperature Source Temporal Pulse Rate 85 70 Respiratory Rate 16 14 Blood Pressure 132/101 H 106/72 Blood Pressure Mean 111 83 Pulse Ox 100 97 Oxygen Delivery Method Room Air MDM MDM MDM Narrative Medical decision making narrative: Patient is a 44-year-old female who presented to the emergency department with a chief complaint of wanting detox from polysubstance abuse. Patient be medically cleared. On the differential diagnose includes but not limited to substance abuse from crack/cocaine, Xanax. Insert patient CBC reviewed and showed no evidence leukocytosis white blood cell count normal at 9.6, hemoglobin 15.1, platelet count normal at 370. Patient's sodium normal at 138, potassium normal 3.8, creatinine normal at 0.66. Patient's test was negative. Patient's urinalysis pending. Patient's drug screen was positive for barbiturates, amphetamines, benzos, cocaine. Patient alcohol level less than 3. Will reach out to the hospitalist for admission for detox. Patient's urinalysis reviewed showed no evidence of infection, negative nitrates negative leukocyte esterase 0-5 white cells. Discussed case with hospitalist Dr. Purcell who accept patient for admission. Patient was notified is agreeable plan all question concerns answered. Lab Data Labs: Laboratory Results - last 24 hr 09/19/24 08:29 WBC 9.6 RBC 5.02 Hgb 15.1 H Hct 44.6 MCV 88.8 MCH 30.1 MCHC 33.9 RDW Std Deviation 40.4 RDW Coeff of Vignesh 12.4 Plt Count 370 MPV 9.3 Immature Gran % (Auto) 0.200 Neut % (Auto) 49.2 Lymph % (Auto) 37.6 [place] % (Auto) 10.3 H Eos % (Auto) 2.1 Baso % (Auto) 0.6 Absolute Neuts (auto) 4.7 Absolute Lymphs (auto) 3.61 Nucleated RBC % 0 Sodium 138 Potassium 3.8 Chloride 107 Carbon Dioxide 25.0 Anion Gap 6 BUN 10 Creatinine 0.66 Estim Creat Clear Calc 108.42 Est GFR (MDRD) Af Amer 126 Est GFR (MDRD) Non-Af 104 BUN/Creatinine Ratio 15.1 Glucose 84 Calcium 9.4 Serum , Qual NEGATIVE Urine Color Yellow Urine Clarity Clear Urine pH 7.0 Ur Specific [place] 1.010 Urine Protein Negative Urine Glucose (UA) Normal Urine Ketones Negative Urine Occult Blood 10 H Urine Nitrite Negative Urine Bilirubin Negative Urine Urobilinogen Normal Ur Leukocyte Esterase Negative Urine RBC 0 SEEN Urine WBC 0-5 SEEN Ur Squamous Epith Cells 0-5 SEEN Urine Bacteria 1+ Urine Mucus 0 SEEN Urine Opiates Screen NEGATIVE Urine Methadone Screen NEGATIVE Ur Barbiturates Screen POSITIVE H Ur Phencyclidine Scrn NEGATIVE Ur Amphetamines Screen POSITIVE H MDMA (Ecstasy) Screen NEGATIVE U Benzodiazepines Scrn POSITIVE H Urine Cocaine Screen POSITIVE H U Cannabinoids Screen NEGATIVE Ur Drug Screen Comment Ethyl Alcohol < 3.0 Discharge Plan Triage Chief Complaint: Substance Abuse ED Provider: Riaz Yi Dx/Rx/DC Orders Clinical Impression: Polysubstance abuse Prescriptions: No Action duloxetine [Cymbalta] 60 mg capsule,delayed release(DR/EC) 60 mg PO QDAY amoxicillin-pot clavulanate 875-125 mg tablet 1 tab PO BID Rx Instructions: last dose will be pm on 09/07/24 Primary Care Provider: Dari Ma Referrals: Dari Ma MD [Primary Care Provider] - Print Language: Maltese Disposition Disposition: Acute Care Hospital [facility]
[2024-09-19 08:41] LABS: Absolute Lymphocyte Count 3.61 X10^3/uL (0.83-4.51); Absolute Neutrophil Count 4.7 X10^3/uL (2.0-7.7); Basophil# 0.06 X10^3/uL; Basophil% 0.6 % (0-1); Eosinophils% 2.1 % (0-5); Hematocrit 44.6 % (37-47); Hemoglobin 15.1 g/dL (12.0-15.0); Lymphocyte # 3.61 X10^3/ul (0.83-4.51); Lymphocyte % 37.6 % (19-41); Mean Corp Hgb Conc 33.9 g/dL (32-36); Mean Corpuscular Hgb 30.1 pg (27.0-32.0); Mean Corpuscular Volume 88.8 fL (81-99); Mean Platelet Vol. 9.3 fl (6.2-12.0); Monocyte# 0.99 X10^3/uL; Monocyte% 10.3 % (0-10); NRBC Flagged by Analyzer 0 % (0-5); Neutrophil # 4.72 X10^3/uL (2.7-7.7); Neutrophil % 49.2 % (47-70); Platelet Count 370 K/mm3 (150-450); RBC Distribution Width CV 12.4 % (11.6-14.6); RBC Distribution Width SD 40.4 fl (35.1-43.9); Red Blood Count 5.02 M/mm3 (4.2-5.4); White Blood Count 9.6 K/mm3 (4.4-11.0)
[2024-09-19 08:54] LABS: Anion Gap 6 (5-15); BUN 10 mg/dL (7-18); BUN/Creat Ratio 15.1 RATIO (10-20); Calcium,Total 9.4 mg/dL (8.5-10.1); Chloride 107 mmol/L (98-107); Creatinine, Serum 0.66 mg/dL (0.55-1.02); EST Glomerular Filtration Rate 104 mL/min (>60); Est Glom Filt Rate - Afr Amer 126 mL/min (>60); Estimated Creatinine Clearance 108.42 ml/min; Glucose 84 mg/dL (74-106); Potassium 3.8 mmol/L (3.5-5.1); Sodium Level 138 mmol/L (136-145)
[2024-09-19 08:56] LABS: Internal QC Validated? YES +Cl - CLEAR BKGD; Pregnancy, Serum, hCG Quali. NEGATIVE Negative
[2024-09-19 08:58] LABS: Amphetamine Urine VISTA POSITIVE (<1000 ng/mL); Barbiturate Urine VISTA POSITIVE (< 200 ng/mL); Benzodiazepine Urine VISTA POSITIVE (< 200 ng/mL); Cocaine Urine VISTA POSITIVE (< 300 ng/mL); Ecstacy Urine VISTA NEGATIVE (< 500 ng/mL); Methadone Urine VISTA NEGATIVE (< 300 ng/mL); PCP Urine VISTA NEGATIVE (< 25 ng/mL); THC Urine VISTA NEGATIVE (< 50 ng/mL); Vista UDS pH Range 7
[2024-09-19 09:00] LABS: Alcohol, Blood (Medical)-Serum < 3.0 mg/dL; Mucous, Urine 0 SEEN /hpf (<or=2+); Red Blood Cells-Urine 0 SEEN /hpf (0-5)
[2024-09-19 09:08] LABS: Color, Urine Yellow (Yellow); Glucose, Dipstick Normal (Normal); Ketone-Dipstick Negative (Negative); Leukocyte Esterase-Dipstick Negative /ul (Negative); Nitrite-Dipstick Negative (Negative); Occult Blood-Urine 10 /ul (Negative); Protein-Dipstick Negative (Negative); Urine Bilirubin Dipstick Negative (Negative); Urine Clarity Clear (Clear); Urine Urobilinogen Normal (Normal)
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
[2024-09-19 09:27] LABS: Bacteria 1+ /hpf (None Seen); Squamous Epithelial Cells - UA 0-5 SEEN /hpf (5-10); White Blood Cells 0-5 SEEN /hpf (0-5)
[2024-09-19 09:33] VITALS: BP 106/72; PULSE 70; RESP 14; TEMP 36.2; O2SAT 97
[2024-09-19 11:48] VITALS: BMI 28.6
[2024-09-19] MEDS: Phenobarbital 32.4 MG Tablet 64.8 MG PO ×4 (12:19→22:40)
[2024-09-19 12:28] VITALS: BP 107/71; PULSE 76; RESP 16; TEMP 36.4; O2SAT 99
--- NOTE | 2024-09-19 15:18 | CHAPLAIN ---
Type of Pastoral Visit ___ Initial Visit ___ Follow-up Visit ___ On-call Visit ___ General Patient Visit ___ Spiritual Assessment ___ Family Conference ___ Bereavement ___ Rapid Response ___ Code Blue ___ Other (describe below) Pastoral Care Referral From ___ Patient ___ Family ___ Nurse ___ Physician ___ Spot Facer ___ Breast Splitter ___ Other (describe below) Sacrament/Intervention ___ Active listening ___ Anointing ___ Jainism ___ Bereavement ___ Communion ___ Evelyn exploration ___ ___ Life review ___ Prayer ___ Reconciliation ___ Sacrament of Sick ___ Supportive presence ___ Wedding ___ Other (describe below) Pastoral Comments patient was sleeping and did not arouse when her name was called out
--- NOTE | 2024-09-19 15:39 | CHAPLAIN ---
Type of Pastoral Visit ___ Initial Visit ___ Follow-up Visit ___ On-call Visit ___ General Patient Visit ___ Spiritual Assessment ___ Family Conference ___ Bereavement ___ Rapid Response ___ Code Blue ___ Other (describe below) Pastoral Care Referral From ___ Patient ___ Family ___ Nurse ___ Physician ___ Cold Press Operator ___ Railroad Dining Car Stewardess ___ Other (describe below) Sacrament/Intervention ___ Active listening ___ Anointing ___ Worship ___ Bereavement ___ Communion ___ Evelyn exploration ___ ___ Life review ___ Prayer ___ Reconciliation ___ Sacrament of Sick ___ Supportive presence ___ Wedding ___ Other (describe below) Pastoral Comments second attempt to see this patient; pt is now awake but asks for a visit tomorrow since she is very drowsy
[2024-09-19] MEDS: hydrOXYzine PAM 25 MG Capsule 50 MG PO (20:18)
[2024-09-19 22:37] VITALS: BP 114/72; PULSE 87; RESP 16; TEMP 36.5; O2SAT 98
[2024-09-19] MEDS: ARIPiprazole 2 MG Tablet PO (22:38)
[2024-09-19] MEDS: DULoxetine Hcl 60 MG Capsule PO (22:38)
[2024-09-20] MEDS: Phenobarbital 32.4 MG Tablet 64.8 MG PO ×6 (02:50→22:57)
[2024-09-20 02:54] VITALS: BP 112/67; PULSE 64; RESP 17; TEMP 36.3; O2SAT 98
--- NOTE | 2024-09-20 02:59 | NURSING ---
Pt was asked if she would allow us to give updates to family while she was admitted to the hospital. She stated that yes she would allow updates to be given. Pt information updated to reflect the changes.
[2024-09-20] MEDS: Thiamine Hydrochloride 100 MG Tablet PO (06:56)
[2024-09-20] MEDS: Folic Acid 1 MG Tablet PO (06:56)
[2024-09-20 08:11] VITALS: BP 124/76; PULSE 73; RESP 14; TEMP 36.8; O2SAT 96
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
--- NOTE | 2024-09-20 10:35 | ADDICTION ---
Addendum entered by Jennifer Atkinson 09/20/24 11:09: Peer supporter, Laura has agreed to transport pt to treatment tomorrow morning around 10:30. Original Note: This publicity writer met with PT to conduct ASAM, MSE, AUDIT, DUDIT assessments and to plan for d/c. PT A+Ox4 and participated actively. All assessments completed. PT plans to f/u with inpatient tx treatment services at [facility]. TW and facility are working on transport services.
[2024-09-20 14:04] VITALS: BP 118/85; PULSE 95; RESP 17; TEMP 36.6; O2SAT 100
[2024-09-20] MEDS: Gabapentin 300 MG Capsule PO (14:10)
--- NOTE | 2024-09-20 15:16 | CHAPLAIN ---
Type of Pastoral Visit ___ Initial Visit ___ Follow-up Visit ___ On-call Visit _x__ General Patient Visit ___ Spiritual Assessment ___ Family Conference ___ Bereavement ___ Rapid Response ___ Code Blue ___ Other (describe below) Pastoral Care Referral From _x__ Patient ___ Family ___ Nurse ___ Physician ___ Photography Professor ___ Emergency Medical Technician Basic ___ Other (describe below) Sacrament/Intervention ___ Active listening ___ Anointing ___ Jewish ___ Bereavement ___ Communion ___ Evelyn exploration ___ ___ Life review ___ Prayer ___ Reconciliation ___ Sacrament of Sick ___ Supportive presence ___ Wedding ___ Other (describe below) Pastoral Comments two attempts made today to see this patient; both attempts found the door closed, curtain pulled, lights off, shades pulled, and the patient soundly sleeping; did not disturb
[2024-09-20 22:52] VITALS: BP 95/57; PULSE 73; RESP 18; TEMP 36.7; O2SAT 97
[2024-09-20] MEDS: DULoxetine Hcl 60 MG Capsule PO (22:57)
[2024-09-20] MEDS: ARIPiprazole 2 MG Tablet PO (22:57)
[2024-09-21] MEDS: Phenobarbital 32.4 MG Tablet 64.8 MG PO ×2 (02:55→06:59)
[2024-09-21] MEDS: Folic Acid 1 MG Tablet PO (06:59)
[2024-09-21] MEDS: Thiamine Hydrochloride 100 MG Tablet PO (06:59)
[2024-09-21 07:01] VITALS: BP 126/73; PULSE 82; RESP 16; TEMP 36.4; O2SAT 98
--- NOTE | 2024-09-21 10:22 | PCM.HOSP.N ---
Hospitalist Note Patient was to be discharged today to inpatient rehab for ongoing treatment for her benzodiazepine abuse. I went into talk to the patient and get her ready for discharge and she was nowhere to be found. Patient has evidently eloped from the hospital.
--- NOTE | 2024-09-21 10:25 | NURSING ---
Pts room found empty by Dr. Purcell, ilsa accessed all pt belongings gone. Pt not located in room, or on unit at this time. Pt prior at shift change had been stating she was to be picked up at 1030 by her parents to take her to an IPU, this RN told her we still needed a DC order and Dr. Purcell needed to see her still this AM and we would DC her as soon as possible. This RN went in at approximately 0830 to do morning assessment, pt in bed and asked this RN to please come back at a later time. Upon previous evaluation by nightshift pt A&Ox3. MAIL SORTER AND DELIVERY found this RN at approximately 0930 and stated pt asking about DC and parents picking up again, this RN told MAIL SORTER AND DELIVERY she was told earlier this am about Dr. Purcell still needing to see her, needing a DC order & this RN would be at bedside again shortly.
== END 2024-09-21 10:20 | disposition left against medical advice (07) | DRG 770 ==
LOC: ED 09:35 → PCU 10:17
PROVIDERS: Admitting Provider Internal Medicine; Emergency Provider Emergency Medicine; PCP Family Medicine; Visit Provider Internal Medicine
DX: F19.239 Other psychoactive substance dependence with withdrawal, unspecified (principal); F17.210 Nicotine dependence, cigarettes, uncomplicated; F31.9 Bipolar disorder, unspecified; Z91.410 Personal history of adult physical and sexual abuse
CPT/HCPCS: 36415; 80048; 80307; 81001; 82077; 84703; 85025; 94668; 99283

== ENCOUNTER 2024-12-14 11:01 | Inpatient (IN) | payer MEDICAID, SELFPAY ==
[2024-12-14 11:02] VITALS: BP 123/81; PULSE 87; RESP 17; TEMP 36.5; O2SAT 97; BMI 27.0
--- NOTE | 2024-12-14 11:35 | EDS_ITS ---
HPI History of Present Illness Chief Complaint: Substance Abuse Narrative Narrative: Patient is a 44-year-old female with past medical history of polysubstance abuse, depression, anxiety, bipolar disorder who presents to the emergency department for detox. Patient states that she uses cocaine and Xanax and last used this last night and states that she is going through withdrawal and wants detox. Patient denies any other complaints at this point time. [facility] Medical History Smoker Cocaine use Polysubstance abuse Tobacco abuse Admitted to substance misuse detoxification center Depressed bipolar I disorder Anxiety Home Medications ?Medication ?Instructions ?Recorded ?Last Taken ?Type duloxetine 60 mg capsule,delayed 60 mg PO QHS 09/04/24 09/18/24 History release (Cymbalta) aripiprazole 2 mg tablet 2 mg PO QHS 09/19/24 5 History Allergy/AdvReac Type Severity Reaction Status Date / Time No Known Allergies Allergy Verified 12/14/24 11:04 Surgical History Hx of section Social History Smoking Status: Current every day smoker tobacco type: cigarettes alcohol intake: never substance use type: crack/cocaine and other details: Benzodiazepine abuse ROS ROS ED ROS Narrative Constitutional: Denies fevers, chills, headaches Cardiovascular: Denies chest pain Respiratory: No shortness of breath Abdomen: Denies nausea vomit diarrhea : Denies urinary symptoms Neurological: Denies numbness, weakness, tingling Musculoskeletal: Denies back pain Skin: Denies rashes or lesions EXAM Physical Exam Narrative Exam Narrative: General: Patient lying in bed rest comfortably did not appear to be in acute distress Head: Atraumatic, normocephalic Eyes: PERRL bilaterally, EOMI bilaterally, no conjunctival injection noted Neck: Soft, supple, trachea midline Cardiovascular: Regular rate and rhythm Extremities: +5/5 strength noted in the bilateral upper and lower extremities Neurological: Patient follow commands and that she was at [facility] the year is 2024 Skin: Warm, dry, intact no rashes or lesions noted Const Vital Signs: 12/14/24 11:02 Temperature 97.7 F L Temperature Source Oral Pulse Rate 87 Respiratory Rate 17 Blood Pressure 123/81 H Blood Pressure Mean 95 Pulse Ox 97 MDM MDM MDM Narrative Medical decision making narrative: Patient is a 44-year-old female who presents to the emergency department chief complaint of wanting detox. Patient will be medically cleared and then will discuss with hospitalist for admission for detox. Discharge Plan Triage Chief Complaint: Substance Abuse ED Provider: Riaz Yi Dx/Rx/DC Orders Prescriptions: No Action duloxetine [Cymbalta] 60 mg capsule,delayed release(DR/EC) 60 mg PO QHS aripiprazole 2 mg tablet 2 mg PO QHS Primary Care Provider: Dari Ma Referrals: Dari Ma MD [Primary Care Provider] - Print Language: Uzbek
--- NOTE | 2024-12-14 11:35 | EX.ED.DYSGE1 ---
HPI History of Present Illness Chief Complaint: Substance Abuse Narrative Narrative: Patient is a 44-year-old female with past medical history of polysubstance abuse, depression, anxiety, bipolar disorder who presents to the emergency department for detox. Patient states that she uses cocaine and Xanax and last used this last night and states that she is going through withdrawal and wants detox. Patient denies any other complaints at this point time. [facility] Medical History Smoker Cocaine use Polysubstance abuse Tobacco abuse Admitted to substance misuse detoxification center Depressed bipolar I disorder Anxiety Home Medications ?Medication ?Instructions ?Recorded ?Last Taken ?Type duloxetine 60 mg capsule,delayed 60 mg PO QHS 09/04/24 12/11/24 History release (Cymbalta) Allergy/AdvReac Type Severity Reaction Status Date / Time No Known Allergies Allergy Verified 12/14/24 11:04 Surgical History Hx of section Social History Smoking Status: Current every day smoker tobacco type: cigarettes alcohol intake: never substance use type: crack/cocaine and other details: Benzodiazepine abuse ROS ROS ED ROS Narrative Constitutional: Denies fevers, chills, headaches Cardiovascular: Denies chest pain Respiratory: No shortness of breath Abdomen: Denies nausea vomit diarrhea : Denies urinary symptoms Neurological: Denies numbness, weakness, tingling Musculoskeletal: Denies back pain Skin: Denies rashes or lesions EXAM Physical Exam Narrative Exam Narrative: General: Patient lying in bed rest comfortably did not appear to be in acute distress Head: Atraumatic, normocephalic Eyes: PERRL bilaterally, EOMI bilaterally, no conjunctival injection noted Neck: Soft, supple, trachea midline Cardiovascular: Regular rate and rhythm Extremities: +5/5 strength noted in the bilateral upper and lower extremities Neurological: Patient follow commands and that she was at [facility] the year is 2024 Skin: Warm, dry, intact no rashes or lesions noted Const Vital Signs: 12/14/24 11:02 12/14/24 12:07 Temperature 97.7 F L Temperature Source Oral Pulse Rate 87 95 Respiratory Rate 17 16 Blood Pressure 123/81 H 126/81 H Blood Pressure Mean 95 96 Pulse Ox 97 98 Oxygen Delivery Method Room Air MDM MDM MDM Narrative Medical decision making narrative: Patient is a 44-year-old female who presents to the emergency department chief complaint of wanting detox. Patient will be medically cleared and then will discuss with hospitalist for admission for detox. Patient CBC reviewed and showed no evidence leukocytosis white blood count normal 7.5, hemoglobin 13.5, platelet count normal at 376. Patient sodium normal 139, potassium normal at 4, creatinine normal at 0.70. Patient test was negative, drug screen presumptive positive for amphetamines, cocaine, alcohol of less than 10. Did discuss her case with hospitalist Dr. Scruggs who accept patient for admission. Patient was notified is agreeable spinal cord concerns answered. Lab Data Labs: Laboratory Results - last 24 hr 12/14/24 11:34 WBC 7.5 RBC 4.69 Hgb 13.5 Hct 41.0 MCV 87.4 MCH 28.8 MCHC 32.9 RDW Std Deviation 38.5 RDW Coeff of Vignesh 12.0 Plt Count 376 MPV 9.6 Immature Gran % (Auto) 0.300 Neut % (Auto) 51.2 Lymph % (Auto) 34.6 [place] % (Auto) 11.5 H Eos % (Auto) 1.9 Baso % (Auto) 0.5 Absolute Neuts (auto) 3.8 Absolute Lymphs (auto) 2.59 Nucleated RBC % 0 Sodium 139 Potassium 4.0 Chloride 105 Carbon Dioxide 26.0 Anion Gap 9 BUN 12 Creatinine 0.70 Estim Creat Clear Calc 101.50 Est GFR (MDRD) Non-Af 111 BUN/Creatinine Ratio 17.2 Glucose 85 Calcium 9.1 Serum , Qual NEGATIVE Urine Opiates Screen NEGATIVE U Buprenorphine Qual NEGATIVE Ur Oxycodone Screen NEGATIVE Urine Methadone Screen NEGATIVE Urine Fentanyl Screen NEGATIVE Ur Barbiturates Screen NEGATIVE Ur Phencyclidine Scrn NEGATIVE Ur Amphetamines Screen PRESUMPTIVE POSITIVE U Benzodiazepines Scrn NEGATIVE Urine Cocaine Screen PRESUMPTIVE POSITIVE U Cannabinoids Screen NEGATIVE Ethyl Alcohol < 10.1 Discharge Plan Triage Chief Complaint: Substance Abuse ED Provider: Riaz iY Dx/Rx/DC Orders Clinical Impression: Polysubstance abuse, Desire for detoxification Prescriptions: No Action duloxetine [Cymbalta] 60 mg capsule,delayed release(DR/EC) 60 mg PO QHS Primary Care Provider: Dari Ma Referrals: Dari Ma MD [Primary Care Provider] - Print Language: Burmese Disposition Disposition: Acute Care Hospital [facility]
[2024-12-14 11:46] LABS: Absolute Lymphocyte Count 2.59 X10^3/uL (0.83-4.51); Absolute Neutrophil Count 3.8 X10^3/uL (2.0-7.7); Basophil# 0.04 X10^3/uL; Basophil% 0.5 % (0-1); Eosinophil# 0.14 X10^3/uL; Eosinophils% 1.9 % (0-5); Hemoglobin 13.5 g/dL (12.0-15.0); Lymphocyte # 2.59 X10^3/ul (0.83-4.51); Lymphocyte % 34.6 % (19-41); Mean Corp Hgb Conc 32.9 g/dL (32-36); Mean Corpuscular Hgb 28.8 pg (27.0-32.0); Mean Corpuscular Volume 87.4 fL (81-99); Mean Platelet Vol. 9.6 fl (6.2-12.0); Monocyte# 0.86 X10^3/uL; Monocyte% 11.5 % (0-10); NRBC Flagged by Analyzer 0 % (0-5); Neutrophil # 3.83 X10^3/uL (2.7-7.7); Neutrophil % 51.2 % (47-70); Platelet Count 376 K/mm3 (150-450); RBC Distribution Width SD 38.5 fl (35.1-43.9); Red Blood Count 4.69 M/mm3 (4.2-5.4); White Blood Count 7.5 K/mm3 (4.4-11.0)
[2024-12-14 11:57] LABS: Internal QC Validated? YES +Cl - CLEAR BKGD; Pregnancy, Serum, hCG Quali. NEGATIVE Negative
[2024-12-14 12:07] VITALS: BP 126/81; PULSE 95; RESP 16; O2SAT 98
[2024-12-14 12:07] LABS: Amphetamine Urine PRESUMPTIVE POSITIVE (<1000 ng/mL); Barbiturate Urine NEGATIVE (< 200 ng/mL); Benzodiazepine Urine NEGATIVE (< 200 ng/mL); Buprenorphine Urine NEGATIVE (< 200 ng/mL); Cocaine Urine PRESUMPTIVE POSITIVE (< 300 ng/mL); Fentanyl, Urine NEGATIVE; Methadone Urine NEGATIVE (< 300 ng/mL); Opiates Urine NEGATIVE (< 300 ng/mL); Oxycodone, Urine NEGATIVE (< 100 ng/mL); PCP Urine NEGATIVE (< 25 ng/mL); THC Urine NEGATIVE (< 50 ng/mL)
[2024-12-14 12:08] LABS: Anion Gap 9 (5-15); BUN 12 mg/dL (4-19); BUN/Creat Ratio 17.2 RATIO (10-20); Calcium,Total 9.1 mg/dL (7.6-11.0); Chloride 105 mmol/L (98-108); EST Glomerular Filtration Rate 111 (>60); Glucose 85 mg/dL (70-99); Sodium Level 139 mmol/L (133-145)
[2024-12-14 12:48] LABS: Alcohol, Blood (Medical)-Serum < 10.1 mg/dL (<=10.0)
[2024-12-14 13:00] VITALS: BP 124/78; PULSE 95; RESP 16; O2SAT 98
[2024-12-14 13:59] VITALS: BP 120/92; PULSE 88; RESP 17; TEMP 36.7; O2SAT 100
[2024-12-14] MEDS: Ibuprofen 200 MG Tablet 400 MG PO (14:16)
[2024-12-14 15:25] VITALS: BMI 26.6
[2024-12-14] MEDS: hydrOXYzine PAM 25 MG Capsule 50 MG PO (15:35)
[2024-12-14] MEDS: Acetaminophen 500 MG Tablet PO ×2 (15:35→22:37)
[2024-12-14 15:45] VITALS: BP 133/86; PULSE 58; RESP 16; TEMP 36.4; O2SAT 95
[2024-12-14] MEDS: Phenobarbital 32.4 MG Tablet PO ×2 (15:47→20:04)
--- NOTE | 2024-12-14 16:33 | CM.ED ---
Social Work SW introduced self to patient and explained role in the hospital. Patient stated that she had been through the [facility] program in the past but did not follow through on the treatment after leaving the hospital. Patient states she did complete over a month in a rehab center in [place], but left that program early because it was close to the holidays ans she wanted to be home with her kids. Patient states she has 3 children, ages 20, 8 and 6. Patient states her 20 year old will not talk to her until she receives treatment and her 8 and 6 year olds live with their father. Patient reports having a degree as a [employer], but hasn't been able to work for over a year. Patient states she feels she has hit rock bottom and feels motivated to get help. Patient states she plans on going to an inpatient setting once completing [facility] at [facility]. Emotional support provided, no further needs identified at this time. Farzana Wells, [employer], ENERGY OPERATIONS VICE PRESIDENT
--- NOTE | 2024-12-14 16:43 | HP.PCM.HOS_ITS ---
HPI - General General Date of Admission: 12/14/24 Date of Service: 12/14/24 Chief Complaint: Desiring admission for detox from Xanax use disorder HPI Narrative KENY AKINS, is a 44 F who presents to the emergency room at [facility] desiring services for benzodiazepine use disorder. Patient was here in August of this year for the same reason but admitted she did not follow-up with outpatient detox services. Patient's last usage of Xanax was yesterday, she also states she uses cocaine. Patient does not drink alcohol. She does not use opiates. Labs revealed a normal CBC, chemistry profile was unremarkable, urine tox screen was presumptive positive for amphetamines and cocaine. Patient appears nervous and anxious. Patient will be admitted to [place] [id number], orders were entered using the benzodiazepine detox order set. [facility] Medical History (Updated 12/14/24 @ 14:15 by Angeles Dominguez) Substance abuse Bipolar disorder Smoker Cocaine use Polysubstance abuse Tobacco abuse Admitted to substance misuse detoxification center Depressed bipolar I disorder Anxiety Home Medications ?Medication ?Instructions ?Recorded ?Last Taken ?Type duloxetine 60 mg capsule,delayed 60 mg PO QHS 09/04/24 12/11/24 History release (Cymbalta) Allergy/AdvReac Type Severity Reaction Status Date / Time No Known Allergies Allergy Verified 12/14/24 11:04 Surgical History Hx of section Social History Smoking Status: Current every day smoker tobacco type: cigarettes alcohol intake: never substance use type: crack/cocaine and other details: Benzodiazepine abuse ROS Constitutional Constitutional: Denies anorexia, change in weight, fever(s), night sweats or weakness Eyes Eyes: Denies blurry vision, change in vision, discharge from eye(s) or eye pain Cardiovascular Cardiovascular: Denies chest pain, claudication, edema or palpitations Respiratory/Chest Respiratory/Chest: Denies cough, hemoptysis, shortness of breath at rest or shortness of breath with exertion Gastrointestinal Gastrointestinal: Denies abdominal pain, constipation, diarrhea, hematemesis, hematochezia, melena, nausea or vomiting Genitourinary Genitourinary: Denies dysuria, hematuria, urinary frequency, urinary hesitancy, urinary incontinence or urinary urgency Musculoskeletal Musculoskeletal: Denies back pain, joint pain, joint stiffness, joint swelling, myalgias or neck pain Neurologic Neurologic: Denies abnormal gait, abnormal speech, dizziness, focal weakness, headache(s), loss of vision, numbness, other visual disturbances, paresthesias, syncope or tingling Psychiatric Psychiatric: Reports anxiety and irritability; Denies cognitive impairment, depression, mood swings or suicidal ideation Endocrine Endocrinology: Denies change in body appearance, cold intolerance, excessive sweating, heat intolerance, polydipsia or polyuria Hematologic/Lymphatic Hematologic/Lymphatic: Denies none, anemia, easy bleeding, easy bruising or lymphadenopathy Allergic/Immunologic Allergic/Immunologic: Denies rhinitis, urticaria, eczemia or asthma Vital Signs Vital Signs Vital Signs: 12/14/24 11:02 12/14/24 12:07 12/14/24 13:00 Temperature 97.7 F L Temperature Source Oral Pulse Rate 87 95 95 Respiratory Rate 17 16 16 Respiratory Effort Respiratory Depth Respiratory Pattern Blood Pressure 123/81 H 126/81 H 124/78 H Blood Pressure Mean 95 96 93 Blood Pressure Source Blood Pressure Position Blood Pressure Location Pulse Ox 97 98 98 Oxygen Delivery Method Room Air Room Air 12/14/24 13:59 12/14/24 15:20 12/14/24 15:45 Temperature 98.1 F 97.6 F L Temperature Source Temporal Pulse Rate 88 58 L Respiratory Rate 17 16 Respiratory Effort Normal Non-Labored Respiratory Depth Normal Respiratory Pattern Normal Blood Pressure 120/92 H 133/86 H Blood Pressure Mean 101 101 Blood Pressure Source Monitor Blood Pressure Position Semi-Fowlers Blood Pressure Location Left Arm Pulse Ox 100 95 Oxygen Delivery Method Room Air Room Air Weight Weight: 70.5 kg Body Mass Index (BMI) 26.6 Physical Exam Const alert, oriented x3 and no apparent distress General Appearance: cooperative and well developed Orientation / Consciousness: awake, oriented to person, oriented to place and oriented to time HEENT normocephalic and head/scalp atraumatic HEENT Narrative: Patient has an excoriated area over the corner of her mouth on the right, this area is 3 cm long and a centimeter wide Eyes PERRL, EOMs intact bilaterally and conjunctivae normal Neck supple, no JVD, thyroid normal and no carotid bruits General: trachea midline Resp normal respiratory effort, no retractions, no use of accessory muscles and clear to auscultation bilaterally Auscultation: Negative for rales, rhonchi or wheezes Cardio regular rate, regular rhythm, S1 normal heart sound, S2 normal heart sound, no murmurs, no rub and no gallops GI normal to inspection, nondistended, normoactive bowel sounds, soft to palpation, non-tender and non-distended Extremity no clubbing, cyanosis or edema Skin no rashes or lesions noted General Skin Exam: no breakdown Neuro oriented x3, CN's II-XII intact bilaterally, moves all extremities, no focal motor deficits and no sensory deficits noted Sensorium / Orientation: awake and alert Speech: speech normal Psych Psych Narrative: Patient appears moderately anxious and nervous Results Lab / Micro Data 12/14/24 11:34 12/14/24 11:34 Labs: Laboratory Results - last 24 hr 12/14/24 11:34: WBC 7.5, RBC 4.69, Hgb 13.5, Hct 41.0, MCV 87.4, MCH 28.8, MCHC 32.9, RDW Std Deviation 38.5, RDW Coeff of Vignesh 12.0, Plt Count 376, MPV 9.6, Immature Gran % (Auto) 0.300, Neut % (Auto) 51.2, Lymph % (Auto) 34.6, [place] % (Auto) 11.5 H, Eos % (Auto) 1.9, Baso % (Auto) 0.5, Absolute Neuts (auto) 3.8, Absolute Lymphs (auto) 2.59, Nucleated RBC % 0, Sodium 139, Potassium 4.0, Chloride 105, Carbon Dioxide 26.0, Anion Gap 9, BUN 12, Creatinine 0.70, Estim Creat Clear Calc 101.50, Est GFR (MDRD) Non-Af 111, BUN/Creatinine Ratio 17.2, Glucose 85, Calcium 9.1, Serum , Qual NEGATIVE, Urine Opiates Screen NEGATIVE, U Buprenorphine Qual NEGATIVE, Ur Oxycodone Screen NEGATIVE, Urine Methadone Screen NEGATIVE, Urine Fentanyl Screen NEGATIVE, Ur Barbiturates Screen NEGATIVE, Ur Phencyclidine Scrn NEGATIVE, Ur Amphetamines Screen PRESUMPTIVE POSITIVE, U Benzodiazepines Scrn NEGATIVE, Urine Cocaine Screen PRESUMPTIVE POSITIVE, U Cannabinoids Screen NEGATIVE, Ethyl Alcohol < 10.1 Assessment & Plan Assessment/Plan (1) Polysubstance abuse: PLAN: Plan 1. Polysubstance use disorder-patient was admitted to [facility], orders were entered using benzodiazepine detox order set, patient will be seen by addiction social work professor. Patient states she wants to go into an inpatient program when she leaves the hospital. #2 area of cellulitis over the corner of the patient's right mouth-patient will be placed on doxycycline, she states that she picks the area #3 chronic depression-patient is on Cymbalta Total clinical time spent by myself addressing her medical problems, reviewing all her data, and collaborating with patient's care team: 55 minutes Charges/Coding Visit Charges Inpatient E&M: 84766 Init Hosp L2
[2024-12-14 21:00] VITALS: BP 103/65; PULSE 86; RESP 15; TEMP 37; O2SAT 98
[2024-12-14] MEDS: traZODone 100 MG Tablet PO (22:37)
[2024-12-14] MEDS: DULoxetine Hcl 60 MG Capsule PO (22:38)
[2024-12-14] MEDS: Doxycycline 100 MG CAPSULE PO (22:38)
[2024-12-15] MEDS: Phenobarbital 32.4 MG Tablet PO ×6 (00:14→20:36)
[2024-12-15 04:00] VITALS: BP 105/62; PULSE 75; RESP 15; TEMP 36.9; O2SAT 98
[2024-12-15 07:56] VITALS: BP 94/56; PULSE 80; RESP 16; TEMP 36.7; O2SAT 96
[2024-12-15] MEDS: Doxycycline 100 MG CAPSULE PO ×2 (11:00→20:40)
--- NOTE | 2024-12-15 17:58 | PCM.PN.HOSP ---
Reason for Visit Reason for Visit: Diagnoses Other psychoactive substance abuse, uncomplicated (12/14/24) Subjective Subjective Patient was seen and examined today, she appears lethargic and sleepy. Patient also is diaphoretic. It appears the patient is planning on doing inpatient detox. Objective Data Objective Data Vital Signs: Vital Signs Temp Pulse Resp BP Pulse Ox O2 Del Method 98.1 F 80 16 94/56 L 96 Room Air 12/15/24 07:56 12/15/24 07:56 12/15/24 07:56 12/15/24 07:56 12/15/24 07:56 12/15/24 07:56 Oxygen Delivery Method Room Air Weight: 70.5 kg Body Mass Index (BMI) 26.6 Lab / Micro Data 12/14/24 11:34 12/14/24 11:34 Physical Exam Narrative alert, oriented x3 and no apparent distress General Appearance: cooperative and well developed Orientation / Consciousness: awake, oriented to person, oriented to place and oriented to time HEENT normocephalic and head/scalp atraumatic HEENT Narrative: Patient has an excoriated area over the corner of her mouth on the right, this area is 3 cm long and a centimeter wide Eyes PERRL, EOMs intact bilaterally and conjunctivae normal Neck supple, no JVD, thyroid normal and no carotid bruits General: trachea midline Resp normal respiratory effort, no retractions, no use of accessory muscles and clear to auscultation bilaterally Auscultation: Negative for rales, rhonchi or wheezes Cardio regular rate, regular rhythm, S1 normal heart sound, S2 normal heart sound, no murmurs, no rub and no gallops GI normal to inspection, nondistended, normoactive bowel sounds, soft to palpation, non-tender and non-distended Extremity no clubbing, cyanosis or edema Skin no rashes or lesions noted General Skin Exam: no breakdown Neuro oriented x3, CN's II-XII intact bilaterally, moves all extremities, no focal motor deficits and no sensory deficits noted Sensorium / Orientation: awake and alert Speech: speech normal Psych Psych Narrative: Patient appears moderately anxious and nervous Assessment & Plan Assessment/Plan (1) Polysubstance abuse: PLAN: Plan 1. Polysubstance use disorder-continue phenobarb taper as previously ordered #2 area of cellulitis over the corner of the patient's right mouth-patient will continue doxycycline #3 chronic depression-patient is on Cymbalta Total clinical time spent by myself addressing her medical problems, reviewing all her data, and collaborating with patient's care team: 25 minutes Charges/Coding Visit Charges Inpatient E&M: 61411 Subs Hosp L1
[2024-12-15 20:33] VITALS: BP 97/63; PULSE 87; RESP 15; TEMP 36.6; O2SAT 97
[2024-12-15] MEDS: DULoxetine Hcl 60 MG Capsule PO (20:40)
[2024-12-16] MEDS: Phenobarbital 32.4 MG Tablet PO ×6 (02:01→20:47)
[2024-12-16 05:00] VITALS: BP 90/54; PULSE 61; RESP 15; TEMP 36.2; O2SAT 100
[2024-12-16] MEDS: Doxycycline 100 MG CAPSULE PO ×2 (08:50→20:48)
[2024-12-16 08:55] VITALS: BP 93/53; PULSE 87; RESP 13; TEMP 36.6; O2SAT 96
--- NOTE | 2024-12-16 09:59 | PCM.PN.HOSP ---
Reason for Visit Reason for Visit: Diagnoses Other psychoactive substance abuse, uncomplicated (12/14/24) Subjective Subjective Patient was seen and examined today, she states she feels better today, she plans on doing an inpatient detox program Objective Data Objective Data Vital Signs: Vital Signs Temp Pulse Resp BP Pulse Ox O2 Del Method 97.8 F 87 13 93/53 L 96 Room Air 12/16/24 08:55 12/16/24 08:55 12/16/24 08:55 12/16/24 08:55 12/16/24 08:55 12/16/24 08:55 Oxygen Delivery Method Room Air Weight: 70.5 kg Body Mass Index (BMI) 26.6 Lab / Micro Data 12/14/24 11:34 12/14/24 11:34 Physical Exam Narrative alert, oriented x3 and no apparent distress General Appearance: cooperative and well developed Orientation / Consciousness: awake, oriented to person, oriented to place and oriented to time HEENT normocephalic and head/scalp atraumatic HEENT Narrative: Patient has an excoriated area over the corner of her mouth on the right, this area is 3 cm long and a centimeter wide Eyes PERRL, EOMs intact bilaterally and conjunctivae normal Neck supple, no JVD, thyroid normal and no carotid bruits General: trachea midline Resp normal respiratory effort, no retractions, no use of accessory muscles and clear to auscultation bilaterally Auscultation: Negative for rales, rhonchi or wheezes Cardio regular rate, regular rhythm, S1 normal heart sound, S2 normal heart sound, no murmurs, no rub and no gallops GI normal to inspection, nondistended, normoactive bowel sounds, soft to palpation, non-tender and non-distended Extremity no clubbing, cyanosis or edema Skin no rashes or lesions noted General Skin Exam: no breakdown Neuro oriented x3, CN's II-XII intact bilaterally, moves all extremities, no focal motor deficits and no sensory deficits noted Sensorium / Orientation: awake and alert Speech: speech normal Psych Psych Narrative: Patient appears moderately anxious and nervous Assessment & Plan Assessment/Plan (1) Desire for detoxification: (2) Polysubstance abuse: PLAN: Plan 1. Polysubstance use disorder-continue phenobarb taper as previously ordered #2 area of cellulitis over the corner of the patient's right mouth-patient will continue doxycycline #3 chronic depression-patient is on Cymbalta Total clinical time spent by myself addressing her medical problems, reviewing all her data, and collaborating with patient's care team: 25 minutes Charges/Coding Visit Charges Inpatient E&M: 16998 Subs Hosp L1
--- NOTE | 2024-12-16 16:03 | ADDICTION ---
This senior medical writer met with PT to conduct ASAM, MSE, DUDIT assessments and to plan for d/c. PT A+Ox4 and participated actively. All assessments completed and placed in PT's chart. PT plans to f/u with inpatient treatment at [facility] on 12/18/24. [facility] to transport to [facility] with pickup scheduled for 11AM.
[2024-12-16 16:56] VITALS: BP 97/61; PULSE 95; RESP 13; TEMP 36.5; O2SAT 98
[2024-12-16] MEDS: hydrOXYzine PAM 25 MG Capsule 100 MG PO (16:59)
[2024-12-16 20:43] VITALS: BP 99/58; PULSE 86; RESP 16; TEMP 36.9; O2SAT 100
[2024-12-16] MEDS: DULoxetine Hcl 60 MG Capsule PO (20:48)
[2024-12-16] MEDS: traZODone 100 MG Tablet PO (20:51)
[2024-12-17] MEDS: Phenobarbital 32.4 MG Tablet PO ×4 (00:48→17:57)
[2024-12-17 00:52] VITALS: BP 92/64; PULSE 61; RESP 16; TEMP 36.6; O2SAT 100
[2024-12-17 06:30] VITALS: BP 100/65; PULSE 68; RESP 16; TEMP 36.6; O2SAT 100
[2024-12-17] MEDS: hydrOXYzine PAM 25 MG Capsule 100 MG PO ×2 (06:33→20:41)
[2024-12-17 09:00] VITALS: BP 90/52; PULSE 72; RESP 14; TEMP 36.8; O2SAT 96
[2024-12-17] MEDS: Doxycycline 100 MG CAPSULE PO ×2 (09:24→20:41)
--- NOTE | 2024-12-17 14:38 | PCM.PN.HOSP ---
Reason for Visit Reason for Visit: Diagnoses Other psychoactive substance abuse, uncomplicated (12/14/24) Subjective Subjective Patient was seen and examined today, she voices no complaints. She does not appear anxious or nervous. Arrangements are made for the patient to be discharged tomorrow morning at 10:00 to go to an inpatient detox facility. Objective Data Objective Data Vital Signs: Vital Signs Temp Pulse Resp BP Pulse Ox O2 Del Method 98.3 F 72 14 90/52 L 96 Room Air 12/17/24 09:00 12/17/24 09:00 12/17/24 09:00 12/17/24 09:00 12/17/24 09:00 12/17/24 09:00 Oxygen Delivery Method Room Air Weight: 70.5 kg Body Mass Index (BMI) 26.6 Intake & Output: Intake and Output for Last 24 Hours 12/15/24 12/16/24 12/17/24 23:59 23:59 23:59 Intake Total 1200 / 1200 400 / 400 Balance 1200 / 1200 400 / 400 Lab / Micro Data 12/14/24 11:34 12/14/24 11:34 Physical Exam Narrative alert, oriented x3 and no apparent distress General Appearance: cooperative and well developed Orientation / Consciousness: awake, oriented to person, oriented to place and oriented to time HEENT normocephalic and head/scalp atraumatic HEENT Narrative: Patient has an excoriated area over the corner of her mouth on the right, this area is 3 cm long and a centimeter wide Eyes PERRL, EOMs intact bilaterally and conjunctivae normal Neck supple, no JVD, thyroid normal and no carotid bruits General: trachea midline Resp normal respiratory effort, no retractions, no use of accessory muscles and clear to auscultation bilaterally Auscultation: Negative for rales, rhonchi or wheezes Cardio regular rate, regular rhythm, S1 normal heart sound, S2 normal heart sound, no murmurs, no rub and no gallops GI normal to inspection, nondistended, normoactive bowel sounds, soft to palpation, non-tender and non-distended Extremity no clubbing, cyanosis or edema Skin no rashes or lesions noted General Skin Exam: no breakdown Neuro oriented x3, CN's II-XII intact bilaterally, moves all extremities, no focal motor deficits and no sensory deficits noted Sensorium / Orientation: awake and alert Speech: speech normal Psych Psych Narrative: Patient appears moderately anxious and nervous Assessment & Plan Assessment/Plan (1) Polysubstance abuse: (2) Desire for detoxification: PLAN: Plan 1. Polysubstance use disorder-continue phenobarb taper as previously ordered #2 area of cellulitis over the corner of the patient's right mouth-patient will continue doxycycline #3 chronic depression-patient is on Cymbalta Total clinical time spent by myself addressing her medical problems, reviewing all her data, and collaborating with patient's care team: 25 minutes Charges/Coding Visit Charges Inpatient E&M: 15369 Subs Hosp L1
[2024-12-17 18:00] VITALS: BP 98/60; PULSE 83; RESP 14; TEMP 36.8; O2SAT 93
[2024-12-17 20:37] VITALS: BP 94/52; PULSE 82; RESP 16; TEMP 36.6; O2SAT 100
[2024-12-17] MEDS: DULoxetine Hcl 60 MG Capsule PO (20:41)
[2024-12-17] MEDS: traZODone 100 MG Tablet PO (20:42)
[2024-12-18 00:29] VITALS: BP 92/55; PULSE 78; RESP 15; TEMP 36.4; O2SAT 99
[2024-12-18] MEDS: Phenobarbital 32.4 MG Tablet PO ×2 (00:31→06:25)
[2024-12-18 06:25] VITALS: BP 94/55; PULSE 79; RESP 16; TEMP 36.8; O2SAT 98
[2024-12-18] MEDS: Doxycycline 100 MG CAPSULE PO (09:12)
[2024-12-18 10:10] VITALS: BP 99/57; PULSE 84; RESP 18; TEMP 37.1; O2SAT 98
--- NOTE | 2024-12-18 10:10 | DCINST_ITS ---
Discharge Instructions Diet Discharge Diet: No restrictions DC O2, CPAP, BIPAP needs Home O2 Discharge instructions: No Dressing / Incision Discharge Activity: Return to Normal Activity Dressing / Incision Call your doctor if you observe: Fever of 101 or Higher, Shortness of breath, Dizziness, Swelling in the ankles and Chest pain Follow Up Care Test Results: Test results from this visit will be discussed in further detail at your follow- up appointment, if applicable. Discharge Plan Admission Admit Date/Time: 12/14/24 13:03 Primary Reason for Your Visit: acute alcohol withdrawal Attending Provider: Brea Amaral Primary Care Provider: Dari Ma Consulting Providers: Roldan Scruggs Instructions Patient Instructions: Alcohol Withdrawal: What to Expect, ED Withdrawal Alcohol Discharge Orders/Prescriptions Prescriptions: New doxycycline monohydrate 100 mg Capsule 100 mg PO BID Qty: 10 0RF Continued duloxetine [Cymbalta] 60 mg capsule,delayed release(DR/EC) 60 mg PO QHS Referrals / Follow Up: Dari Ma MD [Primary Care Provider] - Within 1 Week Disposition Disposition (needs filled in before D/C Order can be placed): Home, Self Care
--- NOTE | 2024-12-18 10:11 | PCM.DC.SUM ---
Providers Date of Admission: 12/14/24 Date of Discharge: 12/18/24 Primary Care Physician: Dr. Dari Ma MD Reason For Visit: POLYSUBSTANCE USE DISORDER Diagnosis Discharge Diagnosis (1) Polysubstance abuse: Status: Acute Code(s): F19.10 - Other psychoactive substance abuse, uncomplicated (2) Desire for detoxification: Status: Acute Medications at Discharge Home Medications duloxetine 60 mg capsule,delayed release (Cymbalta) 60 mg PO QHS 09/04/24 doxycycline monohydrate 100 mg capsule 100 mg PO BID #10 caps 12/18/24 Hospital Course Operations None Procedures None Summary of Care Provided Minutes Spent on Discharge: 40 Hospital Course: Patient is a 44-year-old female with past medical history as outlined was admitted via the ED on 12/14/2024 for detox from benzodiazepine use. She had been seen in August of this year for the same reason and did not follow-up with outpatient detox on discharge. Her last use of Xanax was the day before admission and she also admitted to using cocaine. She did not use opioids or drink alcohol. Urine tox was positive for amphetamines and cocaine. She was admitted and managed for acute benzodiazepine withdrawal. She was started on benzodiazepine withdrawal protocol with phenobarbital. She tolerated the 3-day detox process. Hospital course was complicated by cellulitis around the mouth so she was placed on p.o. doxycycline. Patient was agreeable to continuing inpatient treatment at a rehab facility and so was discharged to [facility] on 12/10/2024. She was given a 5-day course of oral doxycycline. She is follow-up with her primary care doctor within 1 to 2 weeks. Patient seen and examined prior to discharge. She had no active complaints and had an uneventful night. Review of systems otherwise negative. Labs and vitals reviewed. Home medication reviewed and reconciled. Physical Exam Const alert, oriented x3 and no apparent distress General Appearance: cooperative, comfortable and well kempt Orientation / Consciousness: awake HEENT normocephalic, head/scalp atraumatic, hearing grossly normal bilaterally, moist oral mucous membranes and oropharynx normal Mouth: oral and palatal mucosa normal Eyes PERRL, EOMs intact bilaterally and conjunctivae normal Neck no lymphadenopathy and supple Resp normal respiratory effort, no retractions, no use of accessory muscles and clear to auscultation bilaterally Cardio regular rate, regular rhythm, S1 normal heart sound, S2 normal heart sound and no murmurs GI normal to inspection, nondistended, normoactive bowel sounds, soft to palpation, non-tender and non-distended Extremity normal to inspection, full ROM and no clubbing, cyanosis or edema Skin no rashes or lesions noted Neuro oriented x3, CN's II-XII intact bilaterally, moves all extremities and no focal motor deficits Sensorium / Orientation: awake and alert Motor Exam: strength 5/5 throughout Psych affect normal Weight / BMI Weight Weight: 155 lb 6.814 oz Body Mass Index (BMI) 26.6 ABG / Lab / Microbiology Data 12/14/24 11:34 12/14/24 11:34 D/C Instructions Discharge Diet: No restrictions Discharge Activity: Return to Normal Activity Weight Bearing Status: Weight bearing as tolerated Call your doctor if you observe: Fever of 101 or Higher, Shortness of breath, Dizziness, Swelling in the ankles and Chest pain DC O2, CPAP, BIPAP Needs Home O2 Discharge instructions: No Meaningful Use Info Meaningful Use Meaningful Use Diagnoses (Choose all that apply): None applicable Ischemic Stroke Statin Dosing Therapy Reference: STATIN DOSE THERAPY REFERENCE: * Patients > 75 years receive moderate or high dose statin therapy. * Patients 75 years or YOUNGER should receive HIGH intensity statin dose unless contraindicated. You will be required to document reason for non-treatment if statin daily dose does not meet guidelines. HIGH DOSE STATIN THERAPY DAILY Atorvastatin > than or = to 40 mg Rosuvastatin > than or = to 20 mg Amlodipine + Atorvastatin > than or = to 2.5/40 mg Ezetimibe + Simvastatin 10/80 mg Simvastatin 80mg Discharge Plan Admission Admit Date/Time: 12/14/24 13:03 Primary Reason for Your Visit: acute alcohol withdrawal Attending Provider: Brea Amaral Primary Care Provider: Dari Ma Consulting Providers: Roldan Scruggs Instructions Patient Instructions: Alcohol Withdrawal: What to Expect, ED Withdrawal Alcohol Discharge Orders/Prescriptions Prescriptions: New doxycycline monohydrate 100 mg Capsule 100 mg PO BID Qty: 10 0RF Continued duloxetine [Cymbalta] 60 mg capsule,delayed release(DR/EC) 60 mg PO QHS Referrals / Follow Up: Dari Ma MD [Primary Care Provider] - Within 1 Week Disposition Disposition (needs filled in before D/C Order can be placed): Home, Self Care Charges/Coding Visit Charges Inpatient E&M: 20036 Disch Hosp >30min
--- NOTE | 2024-12-18 10:22 | PHA.DC.MR.R ---
Pharmacy [facility] Med Reconciliation Pharmacy Service has performed discharge medication reconciliation for this patient. The patient's discharge medication list was reviewed for discrepancies and discrepancies were resolved. Medications at Discharge Home Medications duloxetine 60 mg capsule,delayed release (Cymbalta) 60 mg PO QHS 09/04/24 doxycycline monohydrate 100 mg capsule 100 mg PO BID #10 caps 12/18/24
== END 2024-12-18 11:35 | disposition home or self-care (01) | DRG 774 ==
LOC: ED 13:12 → MS3 15:02
PROVIDERS: Admitting Provider Internal Medicine; Emergency Provider Emergency Medicine; PCP Family Medicine; Visit Provider Student in an Organized Health Care Education/Training Program
DX: F19.10 Other psychoactive substance abuse, uncomplicated (principal); F14.90 Cocaine use, unspecified, uncomplicated; F31.9 Bipolar disorder, unspecified; F17.210 Nicotine dependence, cigarettes, uncomplicated; F41.9 Anxiety disorder, unspecified; K12.2 Cellulitis and abscess of mouth
CPT/HCPCS: 80048; 80307; 82077; 84703; 85025; 99283

== ENCOUNTER → 2024-12-28 | Outpatient (CLI) | payer MEDICAID, SELFPAY ==
[2024-12-28 18:00] LABS: HIV Nonreactive (Nonreactive); Syphilis Antibodies Nonreactive (Nonreactive)
[2024-12-30 05:07] LABS: HEPATITIS B SURFACE AG Negative (Negative); Hep C Antibodies Non Reactive (Non Reactive); Hepatitis A IgM Antibody Negative (Negative); Hepatitis B Core AB IgM Negative (Negative)
== END | disposition home or self-care (01) ==
PROVIDERS: PCP Nurse Practitioner Family; Visit Provider Nurse Practitioner Family
DX: Z11.3 Encounter for screening for infections with a predominantly sexual mode of transmission (principal); Z12.4 Encounter for screening for malignant neoplasm of cervix
CPT/HCPCS: 36415; 80074; 86703; 86780

== ENCOUNTER → 2025-01-29 | Outpatient (CLI) | payer MEDICAID, SELFPAY ==
[2025-01-29 12:15] LABS: Absolute Lymphocyte Count 2.38 X10^3/uL (0.83-4.51); Absolute Neutrophil Count 3.2 X10^3/uL (2.0-7.7); Basophil# 0.06 X10^3/uL; Basophil% 0.9 % (0-1); Eosinophil# 0.15 X10^3/uL; Eosinophils% 2.3 % (0-5); Hematocrit 38.3 % (37-47); Hemoglobin 12.6 g/dL (12.0-15.0); Lymphocyte # 2.38 X10^3/ul (0.83-4.51); Lymphocyte % 36.3 % (19-41); Mean Corp Hgb Conc 32.9 g/dL (32-36); Mean Corpuscular Hgb 29.5 pg (27.0-32.0); Mean Corpuscular Volume 89.7 fL (81-99); Mean Platelet Vol. 10.1 fl (6.2-12.0); Monocyte# 0.74 X10^3/uL; Monocyte% 11.3 % (0-10); NRBC Flagged by Analyzer 0 % (0-5); Neutrophil # 3.21 X10^3/uL (2.7-7.7); Neutrophil % 48.9 % (47-70); Platelet Count 329 K/mm3 (150-450); RBC Distribution Width CV 13.6 % (11.6-14.6); RBC Distribution Width SD 44.6 fl (35.1-43.9); Red Blood Count 4.27 M/mm3 (4.2-5.4); White Blood Count 6.6 K/mm3 (4.4-11.0)
[2025-01-29 13:06] LABS: Hemoglobin A1c 5.2 % (<=5.6)
[2025-01-29 13:20] LABS: ALB/GLOB Ratio 1.4 RATIO (0.9-2.4); AST(SGOT) 18 U/L (<=31); Alanine Aminotransfer ALT/SGPT 17 U/L (<=34); Albumin, Serum 3.9 g/dL (3.5-5.0); Alkaline Phosphatase 90 U/L (35-104); Anion Gap 10 (5-15); BUN 14 mg/dL (4-19); BUN/Creat Ratio 19.5 RATIO (10-20); Calcium,Total 9.2 mg/dL (7.6-11.0); Carbon Dioxide 25.2 mmol/L (21.0-32.0); Chloride 105 mmol/L (98-108); Cholesterol 247 mg/dL (<=200); Creatinine, Serum 0.69 mg/dL (0.70-1.20); EST Glomerular Filtration Rate 111 (>60); Globulin 2.8 g/dL (2.2-4.2); Glucose 89 mg/dL (70-99); High Density Lipoprotein 58 mg/dL; Low Density Lipoprotein Calc. 164 mg/dL; Potassium 4.4 mmol/L (3.3-5.1); Protein, Total 6.7 g/dL (5.9-8.4); Sodium Level 140 mmol/L (133-145); Total Bilirubin 0.17 mg/dL (0.00-1.30); Triglycerides 125 mg/dL; Very Low Density Lipoprotein 25 mg/dL (5-40); cholesterol:hdl ratio screen 4.23
[2025-01-29 14:33] LABS: Ferritin 27 ng/mL (22-378); Follicle Stimulating Hormone 31.7 mIU/mL; Iron 68 ug/dL (50-170); Iron Binding Capacity,Total 344 ug/dL (250-450); Iron Binding Capacity,Unsat 276 ug/dL (228-428); Luteinizing Hormone 34.2 mIU/mL; Vitamin B12 447 pg/mL (180-914); Vitamin D,25 Hydroxy 29.3 ng/mL (30-100)
[2025-01-31 04:07] LABS: PROGESTERONE 0.2 ng/mL (.)
[2025-02-02 15:08] LABS: PROLACTIN 10.7 ng/mL (4.8-33.4); Testosterone, Free 0.25 ng/dL (0.10-0.85); Testosterone, Total 11 ng/dL (4-50)
== END | disposition home or self-care (01) ==
LOC: VSLAB 09:30
PROVIDERS: PCP Nurse Practitioner Family; Visit Provider Nurse Practitioner Family
DX: Z13.220 Encounter for screening for lipoid disorders (principal); N91.2 Amenorrhea, unspecified; R45.4 Irritability and anger; Z13.1 Encounter for screening for diabetes mellitus
CPT/HCPCS: 36415; 80053; 80061; 82306; 82607; 82670; 82728; 83001; 83002; 83036; 83540; 83550; 84144; 84146; 84402; 84403; 84439; 84443; 85025

== ENCOUNTER 2025-03-23 15:26 | Observation (INO) | payer MEDICAID, SELFPAY ==
[2025-03-23 15:27] VITALS: BP 108/70; PULSE 108; RESP 16; TEMP 37.7; O2SAT 90; BMI 29.7
[2025-03-23] MEDS: DiphenhydrAMINE 50 MG/ML Syringe 25 MG IV (16:07)
[2025-03-23 16:15] LABS: Mucous, Urine 0 SEEN /hpf (<or=2+)
[2025-03-23 16:17] LABS: Hematocrit 35.5 % (37-47); Hemoglobin 12.0 g/dL (12.0-15.0); Immature Granulocytes Count 0.220 X10^3/uL (0.0-0.0); Mean Corp Hgb Conc 33.8 g/dL (32-36); Mean Corpuscular Volume 87.7 fL (81-99); Mean Platelet Vol. 9.9 fl (6.2-12.0); NRBC Flagged by Analyzer 0 % (0-5); POSITIVE DIFFERENTIAL YES; Platelet Count 272 K/mm3 (150-450); RBC Distribution Width CV 12.3 % (11.6-14.6); RBC Distribution Width SD 39.8 fl (35.1-43.9); Red Blood Count 4.05 M/mm3 (4.2-5.4); White Blood Count 26.0 K/mm3 (4.4-11.0)
[2025-03-23 16:30] LABS: Differential Indicated SCAN CRITERIA MET
[2025-03-23 16:31] LABS: Barbiturate Urine NEGATIVE (< 200 ng/mL); Benzodiazepine Urine NEGATIVE (< 200 ng/mL); Color, Urine Yellow (Yellow); Glucose, Dipstick Normal (Normal); Ketone-Dipstick 5 mg/dl (Negative); Leukocyte Esterase-Dipstick 100 /ul (Negative); Nitrite-Dipstick Positive (Negative); Occult Blood-Urine 250 /ul (Negative); PCP Urine NEGATIVE (< 25 ng/mL); Protein-Dipstick 100 mg/dl (Negative); Specific Gravity, Urine 1.020 (1.002-1.030); THC Urine NEGATIVE (< 50 ng/mL); Urine Bilirubin Dipstick Negative (Negative)
[2025-03-23 16:32] LABS: Internal QC Validated? YES +Cl - CLEAR BKGD; Pregnancy, Serum, hCG Quali. NEGATIVE Negative; Record Kit Lot#, Serum Preg. 0000962302
[2025-03-23 16:35] LABS: Red Blood Cells-Urine 10-25 SEEN /hpf (0-5); Squamous Epithelial Cells - UA 0-5 SEEN /hpf (5-10)
[2025-03-23 16:37] LABS: AST(SGOT) 14 U/L (<=31); Alanine Aminotransfer ALT/SGPT 17 U/L (<=34); Albumin, Serum 3.6 g/dL (3.5-5.0); Alkaline Phosphatase 105 U/L (35-104); Anion Gap 12 (5-15); BUN 16 mg/dL (4-19); BUN/Creat Ratio 18.4 RATIO (10-20); Calcium,Total 9.5 mg/dL (7.6-11.0); Carbon Dioxide 23.0 mmol/L (21.0-32.0); Chloride 95 mmol/L (98-108); Estimated Creatinine Clearance 83.62 ml/min (50-250); Globulin 3.6 g/dL (2.2-4.2); Glucose 122 mg/dL (70-99); Potassium 3.7 mmol/L (3.3-5.1)
[2025-03-23 17:01] VITALS: BP 105/66; PULSE 98; RESP 15; O2SAT 100
[2025-03-23] MEDS: 0.9% Normal Saline (1000mL) 1,000 ML 1000 ML IV (17:07)
[2025-03-23 17:14] VITALS: BP 105/66; PULSE 98; RESP 15; TEMP 37.7; O2SAT 100
[2025-03-23 17:19] VITALS: TEMP 39.2
[2025-03-23 18:04] VITALS: BMI 29.5
[2025-03-23 18:30] VITALS: BP 102/69; PULSE 103; RESP 18; TEMP 39.5; O2SAT 95
[2025-03-23] MEDS: 0.9% Normal Saline (1000mL) 1,000 ML 999 ML IV (18:54)
[2025-03-23] MEDS: 0.9% Normal Saline (1000mL) 1,000 ML 125 ML IV (20:19)
[2025-03-23 21:19] VITALS: BP 91/55; PULSE 95; RESP 18; TEMP 37.5; O2SAT 97
[2025-03-24] VITALS (9 sets, daily range): BP systolic 91–128; BP diastolic 53–80; PULSE 80–120; RESP 16–22; TEMP 36.9–38.7; O2SAT 95–100
[2025-03-24] MEDS: Lidocaine 2% Viscous15 ML UDC 15 ML PO (01:21)
[2025-03-24] MEDS: 0.9% Saline Lock 10 ML Syringe IV ×4 (05:39→23:46)
[2025-03-24] MEDS: Ketorolac 30 MG/ML Syringe IV (05:39)
[2025-03-24 08:14] LABS: Hematocrit 31.9 % (37-47); Hemoglobin 10.7 g/dL (12.0-15.0); Mean Corp Hgb Conc 33.5 g/dL (32-36); Mean Corpuscular Volume 87.9 fL (81-99); Mean Platelet Vol. 9.8 fl (6.2-12.0); Platelet Count 221 K/mm3 (150-450); RBC Distribution Width CV 12.4 % (11.6-14.6); RBC Distribution Width SD 40.3 fl (35.1-43.9); Red Blood Count 3.63 M/mm3 (4.2-5.4); White Blood Count 21.1 K/mm3 (4.4-11.0)
[2025-03-24 08:54] LABS: Anion Gap 13 (5-15); BUN 9 mg/dL (4-19); BUN/Creat Ratio 11.5 RATIO (10-20); Calcium,Total 8.5 mg/dL (7.6-11.0); Carbon Dioxide 18.2 mmol/L (21.0-32.0); Chloride 101 mmol/L (98-108); Estimated Creatinine Clearance 94.00 ml/min (50-250); Glucose 97 mg/dL (70-99); Potassium 3.5 mmol/L (3.3-5.1)
[2025-03-24] MEDS: Ceftriaxone 2 GM in 0.9% Normal Saline (50mL MB+) 50 ML IV (10:27)
[2025-03-24] MEDS: MELATONIN 3 MG TABLET PO (22:56)
[2025-03-25 03:15] VITALS: BP 95/59; PULSE 92; RESP 16; TEMP 37.1; O2SAT 99
[2025-03-25 06:05] VITALS: TEMP 38.6
[2025-03-25 06:41] LABS: Hematocrit 34.2 % (37-47); Hemoglobin 11.1 g/dL (12.0-15.0); Immature Granulocytes Count 0.100 X10^3/uL (0.0-0.0); Mean Corp Hgb Conc 32.5 g/dL (32-36); Mean Corpuscular Volume 90.7 fL (81-99); Mean Platelet Vol. 10.5 fl (6.2-12.0); NRBC Flagged by Analyzer 0 % (0-5); Platelet Count 233 K/mm3 (150-450); RBC Distribution Width CV 12.5 % (11.6-14.6); RBC Distribution Width SD 41.4 fl (35.1-43.9); Red Blood Count 3.77 M/mm3 (4.2-5.4); White Blood Count 17.1 K/mm3 (4.4-11.0)
[2025-03-25 07:20] LABS: Anion Gap 14 (5-15); BUN 10 mg/dL (4-19); BUN/Creat Ratio 12.8 RATIO (10-20); Calcium,Total 9.0 mg/dL (7.6-11.0); Carbon Dioxide 18.5 mmol/L (21.0-32.0); Chloride 102 mmol/L (98-108); Estimated Creatinine Clearance 95.22 ml/min (50-250); Glucose 87 mg/dL (70-99); Potassium 4.3 mmol/L (3.3-5.1)
[2025-03-25] MEDS: 0.9% Saline Lock 10 ML Syringe IV ×3 (08:22→21:43)
[2025-03-25 09:07] VITALS: BP 110/73; PULSE 80; RESP 18; TEMP 36.9; O2SAT 98
[2025-03-25] MEDS: 0.9% Normal Saline (1000mL) 1,000 ML 100 ML IV ×2 (09:28→20:20)
[2025-03-25] MEDS: Acetaminophen/Butalbital/Caffe 1 Tablet 2 TABLET PO (12:27)
[2025-03-25 12:36] LABS: Procalcitonin 1.41 ng/mL (<=0.10)
[2025-03-25 12:48] LABS: CRP 345.00 mg/L (0.0-3.0)
[2025-03-25 17:01] VITALS: BP 115/77; PULSE 80; RESP 18; TEMP 36.7; O2SAT 100
[2025-03-25] MEDS: HYDROmorphone 0.5 MG/0.5 ML SYRINGE IV ×2 (18:38→21:43)
[2025-03-25 21:37] VITALS: BP 128/70; PULSE 111; RESP 18; TEMP 37.7; O2SAT 96
[2025-03-25] MEDS: Ceftriaxone 2 GM in 0.9% Normal Saline (50mL MB+) 50 ML IV (21:44)
[2025-03-26] MEDS: HYDROmorphone 0.5 MG/0.5 ML SYRINGE IV ×2 (02:39→06:16)
[2025-03-26] MEDS: 0.9% Saline Lock 10 ML Syringe IV ×3 (02:40→18:36)
[2025-03-26 03:40] VITALS: BP 100/73; PULSE 82; RESP 16; TEMP 36.3; O2SAT 98
[2025-03-26 06:58] LABS: Hematocrit 34.9 % (37-47); Hemoglobin 10.9 g/dL (12.0-15.0); Immature Granulocytes Count 0.060 X10^3/uL (0.0-0.0); Mean Corp Hgb Conc 31.2 g/dL (32-36); Mean Corpuscular Volume 94.1 fL (81-99); Mean Platelet Vol. 9.7 fl (6.2-12.0); NRBC Flagged by Analyzer 0 % (0-5); Platelet Count 297 K/mm3 (150-450); RBC Distribution Width CV 12.7 % (11.6-14.6); RBC Distribution Width SD 44.0 fl (35.1-43.9); Red Blood Count 3.71 M/mm3 (4.2-5.4); White Blood Count 11.6 K/mm3 (4.4-11.0)
[2025-03-26 07:28] LABS: Anion Gap 14 (5-15); BUN 5 mg/dL (4-19); BUN/Creat Ratio 8.8 RATIO (10-20); CRP 296.00 mg/L (0.0-3.0); Calcium,Total 8.6 mg/dL (7.6-11.0); Carbon Dioxide 17.2 mmol/L (21.0-32.0); Chloride 103 mmol/L (98-108); Estimated Creatinine Clearance 118.26 ml/min (50-250); Glucose 79 mg/dL (70-99); Potassium 3.8 mmol/L (3.3-5.1); Procalcitonin 0.91 ng/mL (<=0.10)
[2025-03-26 08:02] VITALS: BP 115/68; PULSE 96; RESP 16; TEMP 37; O2SAT 99
[2025-03-26 15:09] VITALS: BP 153/85; PULSE 100; RESP 16; TEMP 37.1; O2SAT 99
[2025-03-26] MEDS: Ketorolac 30 MG/ML Syringe IV (18:36)
[2025-03-26 21:16] VITALS: BP 102/73; PULSE 86; RESP 18; TEMP 36.1; O2SAT 99
[2025-03-26] MEDS: Ceftriaxone 2 GM in 0.9% Normal Saline (50mL MB+) 50 ML IV (21:23)
[2025-03-27 02:57] VITALS: BP 108/70; PULSE 99; RESP 18; TEMP 37.1; O2SAT 99
[2025-03-27 07:00] VITALS: PULSE 84
[2025-03-27 07:11] LABS: Hematocrit 28.7 % (37-47); Hemoglobin 9.5 g/dL (12.0-15.0); Immature Granulocytes Count 0.050 X10^3/uL (0.0-0.0); Mean Corp Hgb Conc 33.1 g/dL (32-36); Mean Corpuscular Volume 88.9 fL (81-99); Mean Platelet Vol. 9.6 fl (6.2-12.0); NRBC Flagged by Analyzer 0 % (0-5); Platelet Count 311 K/mm3 (150-450); RBC Distribution Width CV 12.8 % (11.6-14.6); RBC Distribution Width SD 41.9 fl (35.1-43.9); Red Blood Count 3.23 M/mm3 (4.2-5.4); White Blood Count 10.6 K/mm3 (4.4-11.0)
[2025-03-27 07:12] LABS: Anion Gap 12 (5-15); BUN 7 mg/dL (4-19); BUN/Creat Ratio 11.0 RATIO (10-20); Calcium,Total 8.5 mg/dL (7.6-11.0); Carbon Dioxide 22.2 mmol/L (21.0-32.0); Chloride 102 mmol/L (98-108); Estimated Creatinine Clearance 122.20 ml/min (50-250); Glucose 94 mg/dL (70-99); Potassium 3.6 mmol/L (3.3-5.1)
[2025-03-27 09:30] VITALS: BP 116/75; PULSE 89; RESP 16; TEMP 36.8; O2SAT 96
[2025-03-27] MEDS: Ketorolac 30 MG/ML Syringe IV ×2 (09:33→17:10)
[2025-03-27] MEDS: Senna Tablet 1 TABLET PO ×2 (09:35→21:15)
[2025-03-27 14:30] VITALS: BP 103/70; PULSE 84; RESP 18; TEMP 36.1; O2SAT 100
[2025-03-27] MEDS: NORMAL SALINE 0.9% IV (14:47)
[2025-03-27] MEDS: METHYLPREDNISOLONE SOD SUCC IV (14:47)
[2025-03-27 15:00] VITALS: PULSE 92
[2025-03-27] MEDS: Valproate Sodium 500 MG in Dextrose 5%-Water (50mL Bag) 50 ML 50 MG IV (17:44)
[2025-03-27 21:13] VITALS: BP 123/85; PULSE 72; RESP 16; TEMP 36.6; O2SAT 98
[2025-03-27] MEDS: Ceftriaxone 2 GM in 0.9% Normal Saline (50mL MB+) 50 ML IV (22:39)
[2025-03-27] MEDS: MELATONIN 10 MG TABLET PO (22:39)
[2025-03-28 02:28] VITALS: BP 129/80; PULSE 77; RESP 16; TEMP 36.4; O2SAT 98
[2025-03-28] MEDS: Ketorolac 30 MG/ML Syringe IV (05:01)
[2025-03-28 06:19] LABS: Hematocrit 31.5 % (37-47); Hemoglobin 10.6 g/dL (12.0-15.0); Immature Granulocytes Count 0.140 X10^3/uL (0.0-0.0); Mean Corp Hgb Conc 33.7 g/dL (32-36); Mean Corpuscular Volume 88.0 fL (81-99); Mean Platelet Vol. 9.6 fl (6.2-12.0); NRBC Flagged by Analyzer 0 % (0-5); Platelet Count 433 K/mm3 (150-450); RBC Distribution Width CV 12.5 % (11.6-14.6); RBC Distribution Width SD 40.6 fl (35.1-43.9); Red Blood Count 3.58 M/mm3 (4.2-5.4); White Blood Count 13.1 K/mm3 (4.4-11.0)
[2025-03-28 07:04] LABS: Magnesium 2.0 mg/dL (1.5-2.2)
[2025-03-28 07:38] LABS: Anion Gap 14 (5-15); BUN 12 mg/dL (4-19); BUN/Creat Ratio 20.3 RATIO (10-20); Calcium,Total 9.3 mg/dL (7.6-11.0); Carbon Dioxide 21.3 mmol/L (21.0-32.0); Chloride 101 mmol/L (98-108); Estimated Creatinine Clearance 128.63 ml/min (50-250); Glucose 152 mg/dL (70-99); Potassium 3.9 mmol/L (3.3-5.1)
[2025-03-28 08:50] VITALS: BP 120/79; PULSE 56; RESP 18; TEMP 36.4; O2SAT 95
[2025-03-28] MEDS: Senna Tablet 1 TABLET PO (08:58)
== END 2025-03-28 14:12 | disposition home or self-care (01) ==
LOC: ED 17:14 → PCU 03-24 07:04
PROVIDERS: Internal Medicine; Admitting Provider Hospitalist; Emergency Provider Emergency Medicine; PCP Nurse Practitioner Family; Referring Provider Emergency Medicine; Visit Provider Internal Medicine
DX: N10 Acute pyelonephritis (principal); F15.10 Other stimulant abuse, uncomplicated; F14.10 Cocaine abuse, uncomplicated; B96.20 Unspecified Escherichia coli [E. coli] as the cause of diseases classified elsewhere; E86.0 Dehydration; E87.1 Hypo-osmolality and hyponatremia; G43.909 Migraine, unspecified, not intractable, without status migrainosus; F41.9 Anxiety disorder, unspecified; F32.A Depression, unspecified; E43 Unspecified severe protein-calorie malnutrition; F17.210 Nicotine dependence, cigarettes, uncomplicated; Z68.29 Body mass index [BMI] 29.0-29.9, adult; Z79.899 Other long term (current) drug therapy
CPT/HCPCS: J2919; 36415; 70450; 70551; 71045; 71260; 74177; 76770; 80048; 80053; 80307; 81001; 83735; 84100; 84145; 84703; 85025; 85027; 85652; 86140; 87040; 87077; 87086; 87088; 87186; 87631; 87651; 94668; 96361; 96365; 96366; 96367; 96372; 96375; 96376; 97802; 99221; 99252; 99285; Q9967; A4216; G0378; G0463; J0696; J2405

== ENCOUNTER → 2025-04-16 | Outpatient (CLI) | payer MEDICAID, SELFPAY ==
[2025-04-16 09:44] LABS: Mucous, Urine 0 SEEN /hpf (<or=2+); Squamous Epithelial Cells - UA 0 SEEN /hpf (5-10)
[2025-04-16 10:05] LABS: Hematocrit 35.7 % (37-47); Hemoglobin 11.6 g/dL (12.0-15.0); Immature Granulocytes Count 0.000 X10^3/uL (0.0-0.0); Mean Corp Hgb Conc 32.5 g/dL (32-36); Mean Corpuscular Volume 89.7 fL (81-99); Mean Platelet Vol. 9.8 fl (6.2-12.0); NRBC Flagged by Analyzer 0 % (0-5); Platelet Count 365 K/mm3 (150-450); RBC Distribution Width CV 12.6 % (11.6-14.6); RBC Distribution Width SD 41.4 fl (35.1-43.9); Red Blood Count 3.98 M/mm3 (4.2-5.4); White Blood Count 5.4 K/mm3 (4.4-11.0)
[2025-04-16 10:19] LABS: Color, Urine Yellow (Yellow); Glucose, Dipstick Normal (Normal); Ketone-Dipstick Negative (Negative); Leukocyte Esterase-Dipstick Negative /ul (Negative); Nitrite-Dipstick Negative (Negative); Occult Blood-Urine 25 /ul (Negative); Protein-Dipstick Negative (Negative); Specific Gravity, Urine 1.010 (1.002-1.030); Urine Bilirubin Dipstick Negative (Negative)
[2025-04-16 10:35] LABS: Red Blood Cells-Urine 0-5 SEEN /hpf (0-5)
[2025-04-16 11:07] LABS: AST(SGOT) 16 U/L (<=31); Alanine Aminotransfer ALT/SGPT 12 U/L (<=34); Albumin, Serum 3.9 g/dL (3.5-5.0); Alkaline Phosphatase 77 U/L (35-104); Anion Gap 10 (5-15); BUN 17 mg/dL (4-19); BUN/Creat Ratio 22.6 RATIO (10-20); Calcium,Total 9.3 mg/dL (7.6-11.0); Carbon Dioxide 26.2 mmol/L (21.0-32.0); Chloride 104 mmol/L (98-108); Globulin 2.9 g/dL (2.2-4.2); Glucose 94 mg/dL (70-99); Potassium 4.3 mmol/L (3.3-5.1)
== END | disposition home or self-care (01) ==
LOC: LAB 09:41
PROVIDERS: PCP Nurse Practitioner Family; Referring Provider Nurse Practitioner Family; Visit Provider Nurse Practitioner Family
DX: N12 Tubulo-interstitial nephritis, not specified as acute or chronic (principal)
CPT/HCPCS: 36415; 80053; 81001; 85025; 87077; 87086; 87088

== ENCOUNTER 2025-04-20 20:04 | Emergency (ER) | payer MEDICAID, SELFPAY ==
[2025-04-20 20:05] VITALS: BP 147/100; PULSE 126; RESP 22; TEMP 36.2; O2SAT 98; BMI 28.1
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
--- NOTE | 2025-04-20 20:35 | CT_ITS ---
EXAM: CT BRAIN/HEAD WITHOUT CONTRAST; SPINE CERVICAL WITHOUT CONTRAST CLINICAL HISTORY: HEAD INJURY; NECK PAIN COMPARISON: 03/25/2025. TECHNIQUE: Noncontrast CT images of the head and cervical spine with multiplanar reconstructions. Dose reduction techniques were used including intermediate exposure control (AEC),iterative reconstruction technique, and/or mA and/or KV dose adjustments based on patient's size. FINDINGS: HEAD: No acute intracranial hemorrhage, extra-axial collection, mass effect or evidence of acute infarct. Ventricles and subarachnoid spaces are normal in size. Orbital contents are unremarkable. Intact skull base and calvarium. Clear paranasal sinuses and mastoid air cells. CERVICAL SPINE: No acute fracture or subluxation. Alignment is anatomic. No significant degenerative changes are present. No prevertebral soft tissue swelling. Clear lung apices. CT/Spine Cervical without Contras IMPRESSION: No acute intracranial abnormality. No cervical spine fracture or malalignment. Reading Location: [id number]
--- NOTE | 2025-04-20 20:35 | CT_ITS ---
EXAM: CT BRAIN/HEAD WITHOUT CONTRAST; SPINE CERVICAL WITHOUT CONTRAST CLINICAL HISTORY: HEAD INJURY; NECK PAIN COMPARISON: 03/25/2025. TECHNIQUE: Noncontrast CT images of the head and cervical spine with multiplanar reconstructions. Dose reduction techniques were used including intermediate exposure control (AEC),iterative reconstruction technique, and/or mA and/or KV dose adjustments based on patient's size. FINDINGS: HEAD: No acute intracranial hemorrhage, extra-axial collection, mass effect or evidence of acute infarct. Ventricles and subarachnoid spaces are normal in size. Orbital contents are unremarkable. Intact skull base and calvarium. Clear paranasal sinuses and mastoid air cells. CERVICAL SPINE: No acute fracture or subluxation. Alignment is anatomic. No significant degenerative changes are present. No prevertebral soft tissue swelling. Clear lung apices. CT/Brain/Head without Contrast IMPRESSION: No acute intracranial abnormality. No cervical spine fracture or malalignment. Reading Location: [id number]
--- NOTE | 2025-04-20 20:39 | RAD_ITS ---
PROCEDURE: CHEST PA AND LATERAL 04/20/2025 REASON FOR EXAM: RIB PAIN TECHNIQUE: Procedure Code: RADCXR Modality: DX Procedure: CHEST PA AND LATERAL COMPARISON: 03/23/2025 FINDINGS: Lungs/Pleura: Clear. No pneumothorax or pleural effusion. Heart/Mediastinum: Normal in size. Bones/Soft tissues: No acute fracture or dislocation appreciated. Minimal multilevel degenerative changes of the thoracic spine. RAD/Chest PA and Lateral IMPRESSION: No acute findings. Reading Location: [id number]
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
[2025-04-20 21:53] VITALS: BP 111/77; PULSE 85; RESP 18; TEMP 37; O2SAT 98
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
== END 2025-04-20 22:46 | disposition home or self-care (01) ==
PROVIDERS: Emergency Provider Emergency Medicine; PCP Nurse Practitioner Family; Visit Provider Emergency Medicine
DX: S00.81XA Abrasion of other part of head, initial encounter (principal); F31.9 Bipolar disorder, unspecified; S20.219A Contusion of unspecified front wall of thorax, initial encounter; F17.210 Nicotine dependence, cigarettes, uncomplicated; Y04.8XXA Assault by other bodily force, initial encounter
CPT/HCPCS: 70450; 71046; 72125; 99282

== ENCOUNTER → 2025-04-25 | Outpatient (CLI) | payer MEDICAID, SELFPAY ==
[2025-04-25 15:20] LABS: Hematocrit 36.8 % (37-47); Hemoglobin 12.2 g/dL (12.0-15.0); Immature Granulocytes Count 0.030 X10^3/uL (0.0-0.0); Mean Corp Hgb Conc 33.2 g/dL (32-36); Mean Corpuscular Volume 88.2 fL (81-99); Mean Platelet Vol. 9.9 fl (6.2-12.0); NRBC Flagged by Analyzer 0 % (0-5); Platelet Count 340 K/mm3 (150-450); RBC Distribution Width CV 13.0 % (11.6-14.6); RBC Distribution Width SD 41.9 fl (35.1-43.9); Red Blood Count 4.17 M/mm3 (4.2-5.4); White Blood Count 8.2 K/mm3 (4.4-11.0)
[2025-04-25 16:58] LABS: Iron Binding Capacity,Total 376 ug/dL (250-450)
[2025-04-25 17:16] LABS: Ferritin 213 ng/mL (22-378); Iron 49 ug/dL (50-170); Iron Binding Capacity,Unsat 327 ug/dL (228-428)
== END | disposition home or self-care (01) ==
LOC: LAB 14:32
PROVIDERS: PCP Nurse Practitioner Family; Referring Provider Nurse Practitioner Family; Visit Provider Nurse Practitioner Family
DX: R89.9 Unspecified abnormal finding in specimens from other organs, systems and tissues (principal)
CPT/HCPCS: 36415; 82728; 83540; 83550; 85025

== ENCOUNTER 2025-06-16 07:47 | Emergency (ER) | payer MEDICAID, SELFPAY ==
[2025-06-16 07:48] VITALS: BP 114/97; PULSE 96; RESP 18; TEMP 36.9; O2SAT 96; BMI 29.2
--- NOTE | 2025-06-16 08:43 | RAD_ITS ---
PROCEDURE: ACUTE ABDOMEN INC CHEST 06/16/2025 REASON FOR EXAM: PAIN TECHNIQUE: Procedure Code: RADABDCA Modality: DX Procedure: ACUTE ABDOMEN INC CHEST COMPARISON: 04/20/2025 FINDINGS: Single view of the chest demonstrates normal cardiomediastinal silhouette and well aerated lungs. No pleural effusion or pneumothorax. There is no free air beneath the diaphragm. Bowel-gas pattern is nonobstructive. The osseous structures are unremarkable. No radiopaque foreign body. RAD/Acute Abdomen Inc Chest IMPRESSION: NO ACUTE FINDINGS Reading Location: [id number]
--- NOTE | 2025-06-16 08:43 | ED.VIS.GI ---
HPI HPI - GI History of Present Illness Chief Complaint: Nausea/Vomiting Narrative Narrative: 45-year-old female currently in recovery for opiate addiction, recently had subcutaneous abdominal injection of Suboxone to help in her recovery presents with nausea and vomiting that she has had since Wednesday, 4 days ago. She states that she had dinner with her family member and may have eaten a steak that was still in color. Since then she has had nausea and vomiting. She has had normal bowel movement, no diarrhea. No fevers or chills. She saw her primary care provider yesterday who gave her Zofran but she still continues to have nausea and vomiting. She describes 10-15 episodes in the last 24 hours. She denies any abdominal pain but states her stomach feels queasy. No prior abdominal surgeries except tubal ligation bilateral. No exacerbating or alleviating factors. She states even when she tries to drink water, it will come right back up. [facility] History History of drug abuse Desire for detoxification Polysubstance abuse Polysubstance abuse Substance abuse Bipolar disorder Smoker Cocaine use Polysubstance abuse Tobacco abuse Admitted to substance misuse detoxification center Depressed bipolar I disorder Anxiety Home Medications ?Medication ?Instructions ?Recorded ?Last Taken ?Type duloxetine 60 mg capsule,delayed 60 mg PO QHS 09/04/24 06/15/25 History release (Cymbalta) trazodone 50 mg tablet 100 mg PO QHS insomnia 03/23/25 06/15/25 History buprenorphine 100 mg/0.5 mL 100 mg subcut QMONTH 06/16/25 06/11/25 History solution,exten.rel.subcutaneous syringe (Sublocade) ibuprofen 200 mg tablet (Advil) 400 mg PO Q4H PRN fever or pain 06/16/25 06/15/25 History ondansetron 4 mg disintegrating 4 mg PO Q6H PRN nausea and vomiting 06/16/25 06/15/25 History tablet Allergy/AdvReac Type Severity Reaction Status Date / Time No Known Allergies Allergy Verified 06/16/25 07:47 Surgical History Hx of section Social History household members: family housing: house Smoking Status: Current every day smoker tobacco type: cigarettes alcohol intake: never substance use type: crack/cocaine and other details: Benzodiazepine abuse ROS ROS ED ROS Narrative Review of systems positive for nausea and vomiting. No diarrhea. No fevers or chills. No abdominal pain. Positive cramping. No exacerbating or alleviating factors. No prior abdominal surgeries except bilateral tubal ligation. EXAM Physical Exam Narrative Exam Narrative: Afebrile. Vital signs noted. Nontoxic-appearing. Cardiovascular semination reveals a regular rate and rhythm. Lungs are clear to auscultation bilaterally. The abdomen is soft and nontender without guarding or rebound. Negative Landry sign. No epigastric tenderness. Positive bowel sounds. Neurological examination nonfocal, nonlateralizing. Const Vital Signs: 06/16/25 07:48 06/16/25 09:47 Temperature 98.4 F 97.8 F Temperature Source Oral Oral Pulse Rate 96 75 Respiratory Rate 18 18 Blood Pressure 114/97 H 119/79 Blood Pressure Mean 102 92 Pulse Ox 96 939 Oxygen Delivery Method Room Air Room Air MDM MDM MDM Narrative Medical decision making narrative: Differential diagnosis includes but not limited to gastritis versus GERD versus nonspecific abdominal pain versus pancreatitis. I have low suspicion for bowel obstruction because she has not had any previous surgeries. Patient bolused IV fluids and was given IV Zofran. I will consider other agents if this is not effective. CBC, CMP, and lipase obtained as well as serum . She states that the only other time she felt this way was when she was , but then does state that she had bilateral tubal ligation. I reviewed her laboratory work and she has a normal white count of 6.1 with hemoglobin 14.1, hematocrit 41.7, platelet count 424. Electrolyte panel is significant for CO2 elevated at 33 with sodium 139 and normal potassium 3.5, glucose 91 with BUN of 14 and creatinine 0.82, no evidence of dehydration. Serum test is negative. X-ray abdominal series interpreted by myself independently shows a nonobstructive gas pattern, no acute process. I reviewed the radiology report which confirms my independent interpretation. Upon repeat examination, there is been no vomiting in the ED. She states she feels slightly improved but perhaps slightly nauseated still. She wanted her urinalysis checked although she is not symptomatic. UA is negative for ketones as well as infection. I do not feel antibiotics are indicated. At this point in time, I feel she can be discharged to follow-up with her primary care provider. She can continue her Zofran as previously directed, start [id number] Pepcid as needed, and a clear liquid diet advancing as tolerated. Return instructions to the emergency department were reviewed. Patient motivated for discharge. Disposition is discharged home in stable condition. History & Record Review Discussion w/independent historian: Patient Additional record(s) reviewed:: Prior ED visit Lab Data Attestation: I reviewed the patient's lab results. Labs: Laboratory Results - last 24 hr 06/16/25 06/16/25 08:15 10:30 WBC 6.1 RBC 4.81 Hgb 14.1 Hct 41.7 MCV 86.7 MCH 29.3 MCHC 33.8 RDW Std Deviation 39.7 RDW Coeff of Vignesh 12.5 Plt Count 424 MPV 10.1 Immature Gran % (Auto) 0.000 Neut % (Auto) 50.2 Lymph % (Auto) 33.3 [place] % (Auto) 13.5 H Eos % (Auto) 2.5 Baso % (Auto) 0.5 Absolute Neuts (auto) 3.0 Absolute Lymphs (auto) 2.02 Nucleated RBC % 0 Sodium 139 Potassium 3.5 Chloride 94 L Carbon Dioxide 33.0 H Anion Gap 12 BUN 14 Creatinine 0.82 Estim Creat Clear Calc 88.91 Est GFR (MDRD) Non-Af 91 BUN/Creatinine Ratio 17.0 Glucose 91 Calcium 9.8 Total Bilirubin 0.29 AST 18 ALT 11 Alkaline Phosphatase 80 Total Protein 7.5 Albumin 4.1 Globulin 3.4 Albumin/Globulin Ratio 1.2 Lipase 29 Serum , Qual NEGATIVE Urine Color Yellow Urine Clarity Sl. Cloudy Urine pH 8.0 Ur Specific [place] 1.015 Urine Protein 15 H Urine Glucose (UA) Normal Urine Ketones Negative Urine Occult Blood Negative Urine Nitrite Negative Urine Bilirubin Negative Urine Urobilinogen Normal Ur Leukocyte Esterase 25 H Urine RBC 0 SEEN Urine WBC 0 SEEN Ur Squamous Epith Cells 0-5 SEEN Amorphous Sediment 1+ Urine Bacteria 0 SEEN Urine Mucus 0 SEEN Radiography Diagnostic Testing: Clinical Impression(s) from Imaging Studies Acute Abdomen Series 06/16/25 08:43 IMPRESSION: NO ACUTE FINDINGS Reading Location: [facility] Discharge Plan Triage Chief Complaint: Nausea/Vomiting ED Provider: Huang Mercado Dx/Rx/DC Orders Clinical Impression: Nausea and vomiting, Gastritis Instructions: ED Gastritis (Adult), ED Vomiting (Adult) Prescriptions: No Action duloxetine [Cymbalta] 60 mg capsule,delayed release(DR/EC) 60 mg PO QHS trazodone 50 mg tablet 100 mg PO QHS ondansetron 4 mg tablet,disintegrating 4 mg PO Q6H PRN (Reason: nausea and vomiting) Sublocade 100 mg/0.5 mL solution, extended rel syringe 100 mg SUBCUT QMONTH Patient Comments: pt states was given tablets wednesday and was told will get tablets again next week, then will begin injection due to strength ibuprofen [Advil] 200 mg tablet 400 mg PO Q4H PRN (Reason: fever or pain) Primary Care Provider: Marilu Escamilla Referrals: Marilu Escamilla, [facility] [Primary Care Provider, Family Practice] - 1-2 Days if not improving Activity Restrictions/Additional Instructions: Continue the Zofran given to you by your primary care provider. Start a clear liquid diet and advance as tolerated. You may want to start [id number] Pepcid. Return with fever, new or worsening symptoms. Print Language: Stateless Disposition Disposition: Home, Self Care
[2025-06-16] MEDS: 0.9% Normal Saline (1000mL) 1,000 ML 999 ML IV (08:54)
[2025-06-16 09:10] LABS: Hematocrit 41.7 % (37-47); Hemoglobin 14.1 g/dL (12.0-15.0); Immature Granulocytes Count 0.000 X10^3/uL (0.0-0.0); Mean Corp Hgb Conc 33.8 g/dL (32-36); Mean Corpuscular Volume 86.7 fL (81-99); Mean Platelet Vol. 10.1 fl (6.2-12.0); NRBC Flagged by Analyzer 0 % (0-5); Platelet Count 424 K/mm3 (150-450); RBC Distribution Width CV 12.5 % (11.6-14.6); RBC Distribution Width SD 39.7 fl (35.1-43.9); Red Blood Count 4.81 M/mm3 (4.2-5.4); White Blood Count 6.1 K/mm3 (4.4-11.0)
[2025-06-16 09:17] LABS: Internal QC Validated? YES +Cl - CLEAR BKGD; Pregnancy, Serum, hCG Quali. NEGATIVE Negative; Record Kit Lot#, Serum Preg. 980607
[2025-06-16 09:47] VITALS: BP 119/79; PULSE 75; RESP 18; TEMP 36.6; O2SAT 939
[2025-06-16 09:53] LABS: AST(SGOT) 18 U/L (<=31); Alanine Aminotransfer ALT/SGPT 11 U/L (<=34); Albumin, Serum 4.1 g/dL (3.5-5.0); Alkaline Phosphatase 80 U/L (35-104); Anion Gap 12 (5-15); BUN 14 mg/dL (4-19); BUN/Creat Ratio 17.0 RATIO (10-20); Calcium,Total 9.8 mg/dL (7.6-11.0); Carbon Dioxide 33.0 mmol/L (21.0-32.0); Chloride 94 mmol/L (98-108); Estimated Creatinine Clearance 88.91 ml/min (50-250); Globulin 3.4 g/dL (2.2-4.2); Glucose 91 mg/dL (70-99); Lipase 29 U/L (13-75); Potassium 3.5 mmol/L (3.3-5.1)
[2025-06-16 10:33] LABS: Mucous, Urine 0 SEEN /hpf (<or=2+); Red Blood Cells-Urine 0 SEEN /hpf (0-5)
[2025-06-16 10:46] LABS: Color, Urine Yellow (Yellow); Glucose, Dipstick Normal (Normal); Ketone-Dipstick Negative (Negative); Leukocyte Esterase-Dipstick 25 /ul (Negative); Nitrite-Dipstick Negative (Negative); Occult Blood-Urine Negative /ul (Negative); Protein-Dipstick 15 mg/dl (Negative); Specific Gravity, Urine 1.015 (1.002-1.030); Urine Bilirubin Dipstick Negative (Negative)
[2025-06-16 10:53] LABS: Squamous Epithelial Cells - UA 0-5 SEEN /hpf (5-10)
[2025-06-16 11:05] VITALS: BP 121/75; PULSE 73; RESP 17; TEMP 37.1; O2SAT 96
== END 2025-06-16 11:16 | disposition home or self-care (01) ==
PROVIDERS: Emergency Provider Emergency Medicine; PCP Nurse Practitioner Family; Visit Provider Emergency Medicine
DX: R11.2 Nausea with vomiting, unspecified (principal); F31.9 Bipolar disorder, unspecified; K29.70 Gastritis, unspecified, without bleeding; F17.210 Nicotine dependence, cigarettes, uncomplicated; Z79.899 Other long term (current) drug therapy
CPT/HCPCS: 74022; 80053; 81001; 83690; 84703; 85025; 96361; 96374; 99283; A4216; J2405

== ENCOUNTER → 2025-06-21 | Outpatient (CLI) | payer MEDICAID, SELFPAY | END | disposition home or self-care (01) | LOC: LABSPEC 07:01 | PROVIDERS: PCP Nurse Practitioner Family; Referring Provider Nurse Practitioner Family; Visit Provider Nurse Practitioner Family | DX: R19.7 Diarrhea, unspecified (principal) | CPT/HCPCS: 82274; 87493; 87506 ==